=== PATIENT | female | born 1940 | race Two or more races ===

== ENCOUNTER 2019-06-19 08:08 | Inpatient (IN) | payer MEDICARE, MEDICAID ==
[2019-06-19] VITALS (9 sets, daily range): BP systolic 118–137; BP diastolic 65–76
[~2019-06-19] VITALS: Ht 160 cm; Wt 54.4 kg
[2019-06-19 08:40] LABS: BASOPHILS % (AUTO) 1.4 % (0.0-2.0); EOSINOPHILS % (AUTO) 2.1 % (0.0-3.0); HEMATOCRIT 27.7 % (37.0-47.0); HEMOGLOBIN 9.8 G/DL (12.0-16.0); LYMPHOCYTES % (AUTO) 18.8 % (20.0-45.0); MEAN CORPUSCULAR VOLUME 93 FL (80-99); MONOCYTES % (AUTO) 8.2 % (1.0-10.0); NEUTROPHILS % (AUTO) 69.6 % (45.0-75.0); PLATELET COUNT 153 K/UL (150-450); RED BLOOD COUNT 2.99 M/UL (4.20-5.40); RED CELL DISTRIBUTION WIDTH 13.2 % (11.6-14.8); WHITE BLOOD COUNT 8.5 K/UL (4.8-10.8)
[2019-06-19 08:49] LABS: INR 1.1 (0.9-1.1)
[2019-06-19 08:52] LABS: ANION GAP 15 mmol/L (5-15); BLOOD UREA NITROGEN 38 mg/dL (7-18); CALCIUM 9.7 MG/DL (8.5-10.1); CARBON DIOXIDE 22 MMOL/L (21-32); CHLORIDE 104 MMOL/L (98-107); POTASSIUM 4.8 MMOL/L (3.5-5.1); SODIUM 141 MMOL/L (136-145)
[2019-06-19 08:56] LABS: ALANINE AMINOTRANSFERASE 29 U/L (12-78); ALBUMIN/GLOBULIN RATIO 0.7 (1.0-2.7); ALKALINE PHOSPHATASE 102 U/L (46-116); ASPARTATE AMINO TRANSFERASE 41 U/L (15-37); CREATINE KINASE 72 U/L (26-308)
[2019-06-19] MEDS ORDERED: ATORVASTATIN CA40 MG ORAL (10:28)
[2019-06-19] MEDS ORDERED: FERROUS SULFAT325 MG ORAL (10:28)
[2019-06-19] MEDS ORDERED: ASPIR 8181 MG ORAL (10:28)
[2019-06-19] MEDS ORDERED: METFORMIN HCL1000 M1 ORAL (10:28)
[2019-06-19] MEDS ORDERED: ACETAMINOPHEN325 M1 ORAL (10:28)
[2019-06-19] MEDS ORDERED: NOVOLIN R100 UNIT/1 SUBQ (10:28)
[2019-06-19] MEDS ORDERED: MIDODRINE HCL10 MG ORAL (10:28)
[2019-06-19] MEDS ORDERED: FOLIC ACID1 MG ORAL (10:28)
[2019-06-19] MEDS ORDERED: CITRATE OF MAG296 ML PO (10:28)
[2019-06-19] MEDS ORDERED: SENNA8.6 M2 PO (10:28)
[2019-06-19] MEDS ORDERED: DOCUSATE SODIU100 MG ORAL (10:28)
[2019-06-19] MEDS ORDERED: MECLIZINE HCL12.5 MG ORAL (10:28)
[2019-06-19] MEDS ORDERED: LACTULOSE20 GM/301 ORAL (10:28)
[2019-06-19] MEDS ORDERED: TRAMADOL HCL50 MG ORAL (10:28)
[2019-06-19] MEDS ORDERED: PROTONIX40 MG ORAL (10:28)
[2019-06-19] MEDS ORDERED: VITAMIN D33000 UNI1 PO (10:28)
[2019-06-19] MEDS ORDERED: Pantoprazole Inj IVP ONE (10:45)
--- NOTE | 2019-06-19 11:40 | Diagnostic Imaging Report ---
Indication: Dyspnea Comparison: None A single view chest radiograph was obtained. Findings: No definite infiltrate or pulmonary vascular congestion identified accounting for low lung volumes. The heart is enlarged. The aorta is mildly enlarged consistent with atherosclerotic vascular disease. The bones are osteopenic. There are thoracic vertebral enthesophytes at multiple levels. Impression: No acute disease
--- NOTE | 2019-06-19 12:39 | Pre-Procedure Note/Attestation ---
Pre-Procedure Note/Attestation Complete Prior to Procedure Planned Procedure: not applicable Procedure Narrative: egd Indications for Procedure Pre-Operative Diagnosis: GIB Attestation I attest that I discussed the nature of the procedure; its benefits; risks and complications; and alternatives (and the risks and benefits of such alternatives ), prior to the procedure, with the patient (or the patient's legal loss prevention representative). I attest that, if there was a reasonable possibility of needing a blood transfusion, the patient (or the patient's legal loss prevention representative) was given the [facility] standardized written summary, pursuant to the Miguel Angel Eleonora Blood Safety Act ([place] Health and Safety Code # 1645, as amended). I attest that I re-evaluated the patient just prior to the surgery and that there has been no change in the patient's H&P, except as documented below: Jj Hermosillo MD Jun 19, 2019 12:39
[2019-06-19] MEDS ORDERED: Propofol 200mg/20ml IV ONE (13:00)
[2019-06-19] MEDS: Midodrine 10mg tab ORAL SCH ×2 (13:00→18:01)
[2019-06-19] MEDS ORDERED: Lidocaine 1% MPF 10mg/ml 5ml ONE (13:00)
--- NOTE | 2019-06-19 13:19 | Endoscopy Procedure Note ---
Endoscopy Procedure Note General Indication for Procedure: gib Procedures Performed: EGD Operative Findings/Diagnosis: esoph varices s/p banding Specimen: none Pt Tolerated Procedure Well: Yes Estimated Blood Loss: none Anesthesia Anesthesiologist: zi Anesthesia: MAC Inserted Devices Implant(s) used?: No GI Core Measures 50 yrs or older w/o bx or poly: Not Applicable 10yrs. F/U recommended: Not Applicable Jj Hermosillo MD Jun 19, 2019 13:19
--- NOTE | 2019-06-19 13:41 | Anethesia Preoperative Eval ---
Anesthesia Pre-op PMH/ROS General Date of Evaluation: Jun 19, 2019 Time of Evaluation: 12:50 Anesthesiologist: Naila Frausto CRNA ASA Score: ASA 3 Mallampati Score Class I : Soft palate, uvula, fauces, pillars visible Class II: Soft palate, uvula, fauces visible Class III: Soft palate, base of uvula visible Class IV: Only hard plate visible Mallampati Classification: Class II Surgeon: Bay Diagnosis: Vomiting blood Surgical Procedure: EGD, control of bleeding Family History: no anesthesia problems Allergies: Coded Allergies: No Known Allergies (Unverified , 06/19/19) Medications: see eMAR Patient NPO?: Yes NPO Date: Jun 19, 2019 NPO Time: 00:00 Past Medical History Cardiovascular: Reports: HTN; Denies: CAD, MD, valve dz, arrhythmia, other Pulmonary: Denies: asthma, COPD, VALERIANO, other Gastrointestinal/Genitourinary: Reports: GERD, other - liver cirrhosis, varices Neurologic/Psychiatric: Denies: dementia, CVA, depression/anxiety, TIA, other Endocrine: Reports: DM; Denies: hypothyroidism, steroids, other HEENT: Denies: cataract (L), cataract (R), glaucoma, [place] (L), [place] (R), other Hematology/Immune: Reports: anemia; Denies: DVT, bleeding disorder, other Musculoskeletal/Integumentary: Reports: other - osteoporosis; Denies: OA, RA, DJD, DDD, edema PMH Narrative: as noted above PSxH Narrative: See H & P Anesthesia Pre-op Phys. Exam Physician Exam Last Vital Signs Date Time Temp Pulse Resp B/P (MAP) Pulse Ox O2 Delivery O2 Flow Rate FiO2 06/19/19 12:10 104 18 118/76 99 Room Air 06/19/19 10:20 98.7 Constitutional: NAD Neurologic: other - alert & oriented Cardiovascular: RRR Respiratory: CTA Gastrointestinal: S/NT/ND Airway Exam Mallampati Score: Class II MO: full Neck: FROM TMD: > 3FB ROM: full Teeth: intact Dentures: no upper, no lower Anesthesia Pre-op A/P Labs Hematology Test 06/19/19 08:20 White Blood Count 8.5 K/UL (4.8-10.8) Red Blood Count 2.99 M/UL (4.20-5.40) L Hemoglobin 9.8 G/DL (12.0-16.0) L Hematocrit 27.7 % (37.0-47.0) L Mean Corpuscular Volume 93 FL (80-99) Mean Corpuscular Hemoglobin 32.7 PG (27.0-31.0) H Mean Corpuscular Hemoglobin Concent 35.3 G/DL (32.0-36.0) Red Cell Distribution Width 13.2 % (11.6-14.8) Platelet Count 153 K/UL (150-450) Mean Platelet Volume 6.1 FL (6.5-10.1) L Neutrophils (%) (Auto) 69.6 % (45.0-75.0) Lymphocytes (%) (Auto) 18.8 % (20.0-45.0) L Monocytes (%) (Auto) 8.2 % (1.0-10.0) Eosinophils (%) (Auto) 2.1 % (0.0-3.0) Basophils (%) (Auto) 1.4 % (0.0-2.0) Coagulation Test 06/19/19 08:20 Prothrombin Time 11.5 SEC (9.30-11.50) Prothromb Time International Ratio 1.1 (0.9-1.1) Activated Partial Thromboplast Time 27 SEC (23-33) Chemistry Test 06/19/19 08:20 Sodium Level 141 MMOL/L (136-145) Potassium Level 4.8 MMOL/L (3.5-5.1) Chloride Level 104 MMOL/L (98-107) Carbon Dioxide Level 22 MMOL/L (21-32) Anion Gap 15 mmol/L (5-15) Blood Urea Nitrogen 38 mg/dL (7-18) H Creatinine 1.0 MG/DL (0.55-1.30) Estimat Glomerular Filtration Rate 53.3 mL/min (>60) Glucose Level 157 MG/DL (74-106) H Calcium Level 9.7 MG/DL (8.5-10.1) Total Bilirubin 1.0 MG/DL (0.2-1.0) Aspartate Amino Transf (AST/SGOT) 41 U/L (15-37) H Alanine Aminotransferase (ALT/SGPT) 29 U/L (12-78) Alkaline Phosphatase 102 U/L (46-116) Total Creatine Kinase 72 U/L (26-308) Troponin I 0.000 ng/mL (0.000-0.056) Total Protein 7.4 G/DL (6.4-8.2) Albumin 3.0 G/DL (3.4-5.0) L Globulin 4.4 g/dL Albumin/Globulin Ratio 0.7 (1.0-2.7) L Studies Pre-op Studies: EKG - enlarged heart, atherosclerotic valvular disease Risk Assessment & Plan Assessment: ASA 3E, ok to proceed Plan: MAC Status Change Before Surgery: No Pre-Antibiotics Given Within 1 Hr of Incision: No Naila Frausto CRNA Jun 19, 2019 13:41
--- NOTE | 2019-06-19 13:42 | Immediate Post-Op Evaluation ---
Immediate Post-Op Evalulation Immediate Post-Op Evalulation Procedure: EGD with banding Date of Evaluation: Jun 19, 2019 Time of Evaluation: 13:35 IV Fluids: 0.9 NS 250 ml Blood Pressure Systolic: 135 Blood Pressure Diastolic: 68 Pulse Rate: 109 Respiratory Rate: 20 O2 Sat by Pulse Oximetry: 99 Temperature (Fahrenheit): 97.7 Pain Score (1-10): 0 Nausea: No Vomiting: No Complications none Patient Status: awake, patent Hydration Status: adequate Given Within 1 Hr of Incision: Naila Grewal CRNA Jun 19, 2019 13:42
--- NOTE | 2019-06-19 13:52 | 48 Hour Post Anesthesia Eval ---
Post Anesthesia Evaluation Procedure: EGD with banding Date of Evaluation: Jun 19, 2019 Time of Evaluation: 13:51 Blood Pressure Systolic: 142 0: 69 Pulse Rate: 90 Respiratory Rate: 20 Temperature (Fahrenheit): 97.7 O2 Sat by Pulse Oximetry: 100 Nausea: No Vomiting: No Pain Intensity: 0 Hydration Status: adequate Cardiopulmonary Status: stable Mental Status/LOC: patient returned to baseline Follow-up Care/Observations: per hospitalist Post-Anesthesia Complications: none Follow-up care needed: N/A Naila Frausto CRNA Jun 19, 2019 13:52
--- NOTE | 2019-06-19 14:00 | Emergency Room Report ---
History of Present Illness General Chief Complaint: Gastrointestinal Bleed Source: Patient, Medical Record, EMS Present Illness HPI Patient presents by EMS with reports of vomiting blood Patient himself has some underlying dementia It was reported the patient had vomiting episode on several occasions prior to arrival patient also did complain of epigastric pain with some radiation towards her back Denies any fevers denies any diarrhea denies any lower abdominal pain patient did have trace of bright blood on her outfit COVID-19 risk:Travel to affect: No Allergies: Coded Allergies: No Known Allergies (Unverified , 06/19/19) Patient History Past Medical History: see triage record Reviewed Nursing Documentation: PMH: Agreed; PSxH: Agreed Nursing Documentation-PMH Past Medical History: No History, Except For Hx Cardiac Problems: Yes - Anemia, cardiomyopathy Hx Diabetes: Yes Hx Gastrointestinal Problems: Yes - GERD with esophagitis Hx Cerebrovascular Accident: Yes - TIA Review of Systems All Other Systems: limited - Other than the ones mentioned in the history of present illness all others are reviewed however they do stay limited due to the patient's mental status Physical Exam Vital Signs Date Time Temp Pulse Resp B/P (MAP) Pulse Ox O2 Delivery O2 Flow Rate FiO2 06/19/19 08:07 99.0 115 17 126/70 (88) 99 Room Air 06/19/19 13:25 3 Sp02 EP Interpretation: reviewed, normal General Appearance: no apparent distress Head: normocephalic, atraumatic Eyes: bilateral eye PERRL, bilateral eye EOMI ENT: hearing grossly normal, EOM grossly intact Neck: supple Respiratory: lungs clear, no rhonchi Gastrointestinal: non tender, soft Musculoskeletal: normal inspection Neurologic: alert - With some underlying confusion Psychiatric: mood/affect normal Skin: no rash, palpation normal Lymphatic: no adenopathy Medical Decision Making Diagnostic Impression: Primary Impression: GI bleed ER Course Multiple differentials including but not limited to upper GI bleed, injury and bleeding from of her airway, oropharynx On clinical exam patient does not show any signs of active hemorrhage Extensive work-up was initiated patient is mildly anemic At this time will require further inpatient care GI specialty is consulted Labs Test 06/19/19 08:20 White Blood Count 8.5 K/UL (4.8-10.8) Red Blood Count 2.99 M/UL (4.20-5.40) Hemoglobin 9.8 G/DL (12.0-16.0) Hematocrit 27.7 % (37.0-47.0) Mean Corpuscular Volume 93 FL (80-99) Mean Corpuscular Hemoglobin 32.7 PG (27.0-31.0) Mean Corpuscular Hemoglobin Concent 35.3 G/DL (32.0-36.0) Red Cell Distribution Width 13.2 % (11.6-14.8) Platelet Count 153 K/UL (150-450) Mean Platelet Volume 6.1 FL (6.5-10.1) Neutrophils (%) (Auto) 69.6 % (45.0-75.0) Lymphocytes (%) (Auto) 18.8 % (20.0-45.0) Monocytes (%) (Auto) 8.2 % (1.0-10.0) Eosinophils (%) (Auto) 2.1 % (0.0-3.0) Basophils (%) (Auto) 1.4 % (0.0-2.0) Prothrombin Time 11.5 SEC (9.30-11.50) Prothromb Time International Ratio 1.1 (0.9-1.1) Activated Partial Thromboplast Time 27 SEC (23-33) Sodium Level 141 MMOL/L (136-145) Potassium Level 4.8 MMOL/L (3.5-5.1) Chloride Level 104 MMOL/L (98-107) Carbon Dioxide Level 22 MMOL/L (21-32) Anion Gap 15 mmol/L (5-15) Blood Urea Nitrogen 38 mg/dL (7-18) Creatinine 1.0 MG/DL (0.55-1.30) Estimat Glomerular Filtration Rate 53.3 mL/min (>60) Glucose Level 157 MG/DL (74-106) Calcium Level 9.7 MG/DL (8.5-10.1) Total Bilirubin 1.0 MG/DL (0.2-1.0) Aspartate Amino Transf (AST/SGOT) 41 U/L (15-37) Alanine Aminotransferase (ALT/SGPT) 29 U/L (12-78) Alkaline Phosphatase 102 U/L (46-116) Total Creatine Kinase 72 U/L (26-308) Troponin I 0.000 ng/mL (0.000-0.056) Total Protein 7.4 G/DL (6.4-8.2) Albumin 3.0 G/DL (3.4-5.0) Globulin 4.4 g/dL Albumin/Globulin Ratio 0.7 (1.0-2.7) Rhythm Strip Diag. Results EP Interpretation: yes Rate: 77 Rhythm: NSR, no PVC's, no ectopy Chest X-Ray Diagnostic Results Chest X-Ray Diagnostic Results : Chest X-Ray Ordered: Yes # of Views/Limited/Complete: 1 View Indication: Chest Pain EP Interpretation: Yes Interpretation: no consolidation, no effusion, no pneumothorax Impression: No acute disease Electronically Signed by: Nancy Viveros DO Last Vital Signs Date Time Temp Pulse Resp B/P (MAP) Pulse Ox O2 Delivery O2 Flow Rate FiO2 06/19/19 13:52 90 20 100 06/19/19 13:35 133/65 Nasal Cannula 3 06/19/19 13:25 97.7 Status: improved Disposition: ADMITTED INPATIENT Condition: Serious Referrals: NON PHYSICIAN (PCP) Nancy Viveros DO Jun 19, 2019 14:00
[2019-06-19] MEDS: NovoLOG Insulin Flexpen SUBQ SCH ×3 (16:19→21:00)
--- NOTE | 2019-06-19 16:45 | Procedure Note ---
DATE OF PROCEDURE: 06/19/2019 SURGEON: Jj Hermosillo M.D. PROCEDURE: Upper endoscopy with banding of esophageal varices. ANESTHESIA: Per nurse Naila andersen. INSTRUMENT: Olympus adult flexible upper endoscope. INDICATION: Upper GI bleeding. REASON FOR PROCEDURE: The procedure, risks, benefits, and possible consequences, including hemorrhage, aspiration, perforation and infection, and alternative treatments, were explained to the patient/legal guardian by Dr. Jj Hermosillo and the patient/legal guardian understood and accepted these risks. PROCEDURE IN DETAIL: After informed consent was obtained and the patient was adequately sedated, Olympus upper endoscope was advanced from mouth to the second portion of the duodenum and retroflexion was performed in the stomach. The patient had three columns of grade 4 distal esophageal varices. One of them had nipple on it, most probably the source of bleeding. In the stomach, there was mild portal hypertensive gastropathy with some oozing of blood in the proximal body of the stomach from that. No evidence of any gastric varices. At this time, the banding device was placed. Total of three bands were placed in the distal esophagus. There was minimum bleeding, which stopped after the band was placed. The patient tolerated the procedure very well without any complications. SUMMARY OF FINDINGS: 1. Esophageal varices, status post banding x3. 2. Portal hypertensive gastropathy. PLAN: 1. NPO except for medications. 2. IV Protonix, IV octreotide, ceftriaxone. 3. Abdominal ultrasound. 4. Repeat labs for tomorrow. 5. Start diet tomorrow if the patient is stable and advance as tolerated. Jj Hermosillo M.D. DR: BARRETT JOB#: [id number] CC:
[2019-06-19] MEDS: Octreotide Acetate 500 MCG in Sodium Chloride 499 ML IV SCH (18:00)
--- NOTE | 2019-06-19 19:08 | Diagnostic Imaging Report ---
EXAM: US Abdomen Complete CLINICAL HISTORY: ABD PAIN TECHNIQUE: Real-time ultrasound of the abdomen with image documentation. COMPARISON: No relevant prior studies available. FINDINGS: Limitations: Evaluation is limited secondary to the patient's body habitus. Liver: Some nodularity is suspected of the liver surface. Cirrhosis should be considered. Some increased echogenicity is suspected of the liver consistent with an infiltrative process such as cirrhosis or fatty infiltration. No intrahepatic bile duct dilation. Gallbladder: Multiple gallstones are seen in the gallbladder. There is some gallbladder wall thickening with pericholecystic fluid which are nonspecific findings. Acute cholecystitis cannot be excluded. Correlation with clinical findings is recommended. The gallbladder wall measures approximately 10 mm. Common bile duct: The common biliary duct measures 3 mm. No stones. No dilation. Pancreas: The visualized portions of the pancreas are unremarkable. Kidneys: Question of some increased echogenicity of the kidneys which suggests medical renal disease. The right kidney measures 9.1 cm in length. The left kidney measures 9.5 cm in length. Spleen: The visualized portions of the spleen are unremarkable. Aorta: The visualized portions of the aorta are unremarkable. Inferior vena cava: The visualized portions of the inferior vena cava are unremarkable. Free fluid: Ascites is noted which appears most prominent in the right lower quadrant. IMPRESSION: 1. Some nodularity is suspected of the liver surface. Cirrhosis should be considered. 2. Some increased echogenicity is suspected of the liver consistent with an infiltrative process such as cirrhosis or fatty infiltration. 3. Multiple gallstones are seen in the gallbladder. There is some gallbladder wall thickening with pericholecystic fluid which are nonspecific findings. Acute cholecystitis cannot be excluded. Correlation with clinical findings is recommended. 4. Question of some increased echogenicity of the kidneys which suggests medical renal disease. 5. Ascites is noted which appears most prominent in the right lower quadrant.
[2019-06-20] VITALS (7 sets, daily range): BP systolic 112–137; BP diastolic 60–81
[2019-06-20] MEDS: Octreotide Acetate 500 MCG in Sodium Chloride 499 ML IV SCH ×4 (06:18→23:07)
[2019-06-20] MEDS: NovoLOG Insulin Flexpen SUBQ SCH ×4 (06:26→21:52)
[2019-06-20 08:00] LABS: INR 1.1 (0.9-1.1)
[2019-06-20 08:04] LABS: EOSINOPHILS % (AUTO) 2.9 % (0.0-3.0); HEMATOCRIT 23.1 % (37.0-47.0); LYMPHOCYTES % (AUTO) 22.2 % (20.0-45.0); MEAN CORPUSCULAR VOLUME 94 FL (80-99); MONOCYTES % (AUTO) 9.2 % (1.0-10.0); NEUTROPHILS % (AUTO) 64.8 % (45.0-75.0); PLATELET COUNT 109 K/UL (150-450); RED BLOOD COUNT 2.47 M/UL (4.20-5.40); RED CELL DISTRIBUTION WIDTH 13.5 % (11.6-14.8); WHITE BLOOD COUNT 4.4 K/UL (4.8-10.8)
[2019-06-20 08:34] LABS: AMMONIA 149 umol/L (11-32)
[2019-06-20 08:53] LABS: ALANINE AMINOTRANSFERASE 25 U/L (12-78); ALBUMIN 2.7 G/DL (3.4-5.0); ALBUMIN/GLOBULIN RATIO 0.6 (1.0-2.7); ALKALINE PHOSPHATASE 78 U/L (46-116); ANION GAP 8 mmol/L (5-15); ASPARTATE AMINO TRANSFERASE 34 U/L (15-37); BILIRUBIN,TOTAL 0.9 MG/DL (0.2-1.0); BLOOD UREA NITROGEN 43 mg/dL (7-18); CALCIUM 9.1 MG/DL (8.5-10.1); CARBON DIOXIDE 27 MMOL/L (21-32); CHLORIDE 108 MMOL/L (98-107); POTASSIUM 4.8 MMOL/L (3.5-5.1); SODIUM 143 MMOL/L (136-145)
[2019-06-20] MEDS: Midodrine 10mg tab ORAL SCH ×4 (09:00→19:41)
[2019-06-20] MEDS: Aspirin Baby 81mg ORAL SCH ×2 (09:00→09:58)
[2019-06-20] MEDS ORDERED: D5 1/2NS 1,000 ML IV SCH ×2 (12:30→13:15)
[2019-06-20] MEDS ORDERED: Lactulose 20gm/30ml UDC NG SCH (13:00)
[2019-06-20] MEDS ORDERED: Lactulose 200 GM in NS Irrig 1000ml 700 ML RECTAL SCH (14:00)
--- NOTE | 2019-06-20 14:00 | History and Physical Report ---
DATE OF ADMISSION: 06/19/2019 REASON FOR ADMISSION: GI bleed. HISTORY OF PRESENT ILLNESS: The patient is an 78-year-old female, who presents for further evaluation and care of vomiting blood. Gastroenterology was consulted for GI bleed. Dr. Hermosillo saw the patient. On EGD, the patient had esophageal varices, status post now banding of three of the varices along with portal hypertensive gastropathy. The patient was transferred to telemetry, was mildly awake, but confused and now with an elevated lactulose level. ALLERGIES: No known drug allergies. PAST MEDICAL HISTORY: 1. Alcohol dependency. 2. Anemia. 3. Cardiomyopathy. 4. GERD. 5. Gastritis. 6. Diabetes mellitus. 7. CVA. FAMILY HISTORY: Positive for hypertension and diabetes. PAST SURGICAL HISTORY: Noncontributory. REVIEW OF SYSTEMS: Cannot be obtained. The patient confused and disoriented. LABORATORY DATA: Laboratories dated June 20, 2019, white cell count 4.4, hemoglobin 8, and platelet count 109. Sodium 143, potassium 4.8, creatinine 1. PHYSICAL EXAMINATION: VITAL SIGNS: Blood pressure 129/62, respiratory rate 18, pulse 63, temperature 97.0, and 98% oxygen saturation on room air. GENERAL: The patient is somnolent, but arousable. HEENT: Extraocular muscles intact. No lymphadenopathy CARDIOVASCULAR: S1, S2. No rubs or gallops. PULMONARY: Clear to auscultation bilaterally. No rales, rhonchi or wheezes. ABDOMEN: Nondistended and nontender. EXTREMITIES: No edema. ASSESSMENT AND PLAN: 1. GI bleed due to esophageal varices, status post banding x3. We will defer management to Gastroenterology. 2. Acute encephalopathy due to elevated lactulose level. NG tube has been ordered and we will initiate lactulose therapy. Defer further management to Gastroenterology. 3. Anemia secondary to GI bleed. Blood transfusion if hemoglobin less than 7. 4. Diabetes mellitus. We will continue Accu-Cheks and as the patient is NPO, we will start D5 1/2 normal saline. 5. DVT prophylaxis with SCD. Juwan Angelo MD DR: MANJU/LOYDA Murcia: 06/20/2019 12:11 JOB#: [id number] CC:
[2019-06-20] MEDS: Lactulose 200 GM in NS Irrig 1000ml 700 ML RECTAL SCH ×2 (14:20→21:46)
[2019-06-20] MEDS: cefTRIAXone 1 GM in NS 55 ML IVPB SCH (14:22)
[2019-06-20] MEDS ORDERED: cefTRIAXone 1 GM in NS 55 ML IVPB ONE (15:00)
[2019-06-20] MEDS ORDERED: Atorvastatin 20mg tab ORAL SCH (21:00)
[2019-06-20] MEDS: D5 1/2NS 1,000 ML IV SCH (21:46)
[2019-06-21] VITALS (7 sets, daily range): BP systolic 93–145; BP diastolic 47–100
[2019-06-21] MEDS: Lactulose 200 GM in NS Irrig 1000ml 700 ML RECTAL SCH ×3 (05:57→22:00)
[2019-06-21] MEDS: NovoLOG Insulin Flexpen SUBQ SCH ×4 (05:59→20:47)
[2019-06-21 06:33] LABS: BASOPHILS % (AUTO) 1.4 % (0.0-2.0); EOSINOPHILS % (AUTO) 3.8 % (0.0-3.0); HEMATOCRIT 23.8 % (37.0-47.0); HEMOGLOBIN 8.2 G/DL (12.0-16.0); LYMPHOCYTES % (AUTO) 15.5 % (20.0-45.0); MEAN CORPUSCULAR VOLUME 93 FL (80-99); MONOCYTES % (AUTO) 11.4 % (1.0-10.0); NEUTROPHILS % (AUTO) 67.9 % (45.0-75.0); PLATELET COUNT 112 K/UL (150-450); RED BLOOD COUNT 2.56 M/UL (4.20-5.40); RED CELL DISTRIBUTION WIDTH 13.2 % (11.6-14.8)
[2019-06-21 06:43] LABS: ANION GAP 8 mmol/L (5-15); BLOOD UREA NITROGEN 32 mg/dL (7-18); CALCIUM 8.8 MG/DL (8.5-10.1); CARBON DIOXIDE 27 MMOL/L (21-32); CHLORIDE 110 MMOL/L (98-107); CREATININE 0.9 MG/DL (0.55-1.30); POTASSIUM 3.8 MMOL/L (3.5-5.1); SODIUM 145 MMOL/L (136-145)
[2019-06-21] MEDS: Midodrine 10mg tab ORAL SCH ×3 (09:00→17:40)
[2019-06-21] MEDS ORDERED: Aspirin Baby 81mg ORAL SCH (09:00)
[2019-06-21] MEDS: Octreotide Acetate 500 MCG in Sodium Chloride 499 ML IV SCH ×2 (09:29→19:30)
[2019-06-21] MEDS: D5 1/2NS 1,000 ML IV SCH ×2 (11:18→16:45)
--- NOTE | 2019-06-21 12:26 | Nephrology Progress Note ---
Assessment/Plan Assessment/Plan: A/P 1) GI Bleed- esophageal varieces - s/p banding - blx Tx if Hgb <7 2) Encephalopathy- duee to high ammonia levels - lactulose enemas 3) Hypotension- stable on midrodrine 4) DM- npo, ISS and accuchecks with D51/2 NS Subjective Date patient seen: Jun 21, 2019 Time patient seen: 12:22 ROS Limited/Unobtainable: Yes Allergies: Coded Allergies: No Known Allergies (Unverified , 06/19/19) Subjective Patient little more awake and alert this am Objective Last 24 Hour Vital Signs Date Time Temp Pulse Resp B/P (MAP) Pulse Ox O2 Delivery O2 Flow Rate FiO2 06/21/19 08:00 67 06/21/19 08:00 97.7 91 20 93/47 (62) 100 06/21/19 08:00 Nasal Cannula 2.0 06/21/19 04:00 57 06/21/19 04:00 Nasal Cannula 2.0 06/21/19 04:00 96.8 63 20 104/57 (73) 100 06/21/19 00:00 96.8 76 20 126/66 (86) 98 06/21/19 00:00 Nasal Cannula 2.0 06/21/19 00:00 83 06/20/19 20:00 Nasal Cannula 2.0 06/20/19 20:00 97.3 87 20 137/81 (99) 99 06/20/19 20:00 83 06/20/19 16:00 76 06/20/19 16:00 97.0 70 18 133/61 (85) 99 06/20/19 16:00 Nasal Cannula 2.0 06/20/19 13:20 96.8 75 18 129/60 (83) 97 Intake and Output 06/20/19 06/21/19 19:00 07:00 Output Total 700 ml 500 ml Balance -700 ml -500 ml Output Urine Total 700 ml 500 ml # Bowel Movements 6 5 Laboratory Tests 06/21/19 06:00: White Blood Count 5.0, Red Blood Count 2.56L, Hemoglobin 8.2L, Hematocrit 23.8L , Mean Corpuscular Volume 93, Mean Corpuscular Hemoglobin 31.9H, Mean Corpuscular Hemoglobin Concent 34.2, Red Cell Distribution Width 13.2, Platelet Count 112L, Mean Platelet Volume 5.3L, Neutrophils (%) (Auto) 67.9, Lymphocytes (%) (Auto) 15.5L, Monocytes (%) (Auto) 11.4H, Eosinophils (%) (Auto) 3.8H, Basophils (%) (Auto) 1.4, Sodium Level 145, Potassium Level 3.8, Chloride Level 110H, Carbon Dioxide Level 27, Anion Gap 8, Blood Urea Nitrogen 32H, Creatinine 0.9, Estimat Glomerular Filtration Rate > 60, Glucose Level 169H, Calcium Level 8.8 Height (Feet): 5 Height (Inches): 3.00 Weight (Pounds): 120 General Appearance: no apparent distress, confused EENT: normal ENT inspection Neck: normal alignment, supple Cardiovascular: normal rate, regular rhythm Respiratory/Chest: lungs clear, normal breath sounds Abdomen: non tender, soft Edema: no edema noted Arm (L), no edema noted Arm (R), no edema noted Leg (L), no edema noted Leg (R), no edema noted Pedal (L), no edema noted Pedal (R), no edema noted Generalized Juwan Angelo MD Jun 21, 2019 12:26
[2019-06-21] MEDS ORDERED: D5NS 1000ml IV ONE (13:56)
[2019-06-21] MEDS ORDERED: Tubing IV Secondary IV ONE (13:59)
[2019-06-21] MEDS: cefTRIAXone 1 GM in NS 55 ML IVPB SCH (15:13)
[2019-06-21] MEDS: Atorvastatin 20mg tab ORAL SCH (20:46)
[2019-06-21] MEDS ORDERED: Lactulose 200 GM in NS Irrig 1000ml 700 ML RECTAL SCH (22:00)
[2019-06-22] VITALS: BP 134/72
[2019-06-22 04:00] VITALS: BP 131/62
[2019-06-22] MEDS: Octreotide Acetate 500 MCG in Sodium Chloride 499 ML IV SCH (05:28)
[2019-06-22] MEDS: NovoLOG Insulin Flexpen SUBQ SCH ×4 (05:31→21:00)
[2019-06-22] MEDS: D5 1/2NS 1,000 ML IV SCH ×2 (05:31→18:09)
[2019-06-22] MEDS: Lactulose 200 GM in NS Irrig 1000ml 700 ML RECTAL SCH ×2 (05:32→14:00)
[2019-06-22 06:40] LABS: HEMATOCRIT 22.8 % (37.0-47.0); HEMOGLOBIN 7.8 G/DL (12.0-16.0); MEAN CORPUSCULAR VOLUME 93 FL (80-99); PLATELET COUNT 125 K/UL (150-450); RED BLOOD COUNT 2.44 M/UL (4.20-5.40); RED CELL DISTRIBUTION WIDTH 13.3 % (11.6-14.8); WHITE BLOOD COUNT 4.9 K/UL (4.8-10.8)
[2019-06-22 07:06] LABS: AMMONIA 39 umol/L (11-32)
[2019-06-22 07:20] LABS: ANION GAP 13 mmol/L (5-15); BLOOD UREA NITROGEN 21 mg/dL (7-18); CALCIUM 8.3 MG/DL (8.5-10.1); CARBON DIOXIDE 22 MMOL/L (21-32); CHLORIDE 110 MMOL/L (98-107); CREATININE 0.9 MG/DL (0.55-1.30); POTASSIUM 3.1 MMOL/L (3.5-5.1); SODIUM 145 MMOL/L (136-145)
[2019-06-22 08:00] VITALS: BP 125/68
[2019-06-22] MEDS: Aspirin Baby 81mg ORAL SCH (09:00)
[2019-06-22] MEDS: Midodrine 10mg tab ORAL SCH ×3 (09:00→18:07)
--- NOTE | 2019-06-22 10:32 | General Progress Note ---
Assessment/Plan Assessment/Plan: cirrhosis esoph varices gib encephalopathy hepatic gallstones s/p EGd lactulose add xifaxan swallow eval decrease octreotiode and possible dc tomorrow Subjective ROS Limited/Unobtainable: Yes Allergies: Coded Allergies: No Known Allergies (Unverified , 06/19/19) Objective Last 24 Hour Vital Signs Date Time Temp Pulse Resp B/P (MAP) Pulse Ox O2 Delivery O2 Flow Rate FiO2 06/22/19 04:04 Nasal Cannula 2.0 06/22/19 04:00 75 06/22/19 04:00 97.9 74 21 131/62 (85) 97 06/22/19 00:00 97.7 72 23 134/72 (92) 97 06/22/19 00:00 72 06/21/19 20:00 97.7 82 22 123/70 (87) 87 06/21/19 17:31 97.7 85 20 145/60 (88) 95 06/21/19 16:00 85 06/21/19 16:00 Nasal Cannula 2.0 06/21/19 16:00 98.0 72 20 134/100 (111) 100 06/21/19 12:00 88 06/21/19 12:00 Nasal Cannula 2.0 06/21/19 12:00 98.1 85 20 145/59 (87) 100 Intake and Output 06/21/19 06/22/19 19:00 07:00 Intake Total 1000 ml Balance 1000 ml IV Total 1000 ml # Bowel Movements 3 3 Laboratory Tests 06/22/19 06:22: White Blood Count 4.9, Red Blood Count 2.44L, Hemoglobin 7.8L, Hematocrit 22.8L , Mean Corpuscular Volume 93, Mean Corpuscular Hemoglobin 32.2H, Mean Corpuscular Hemoglobin Concent 34.4, Red Cell Distribution Width 13.3, Platelet Count 125L, Mean Platelet Volume 5.7L, Neutrophils (%) (Auto) , Lymphocytes (%) (Auto) , Monocytes (%) (Auto) , Eosinophils (%) (Auto) , Basophils (%) (Auto) , Differential Total Cells Counted 100, Neutrophils % (Manual) 70, Lymphocytes % ( Manual) 16L, Monocytes % (Manual) 11H, Eosinophils % (Manual) 3, Basophils % ( Manual) 0, Band Neutrophils 0, Platelet Estimate DecreasedL, Platelet Morphology Normal, Clumped Platelets , Hypochromasia 1+, Sodium Level 145, Potassium Level 3.1L, Chloride Level 110H, Carbon Dioxide Level 22, Anion Gap 13 , Blood Urea Nitrogen 21H, Creatinine 0.9, Estimat Glomerular Filtration Rate > 60, Glucose Level 146H, Calcium Level 8.3L, Ammonia 39H Height (Feet): 5 Height (Inches): 3.00 Weight (Pounds): 120 General Appearance: lethargic EENT: normal ENT inspection Neck: supple Cardiovascular: normal rate Respiratory/Chest: decreased breath sounds Abdomen: normal bowel sounds, non tender, soft Extremities: non-tender Jj Hermosillo MD Jun 22, 2019 10:32
--- NOTE | 2019-06-22 11:46 | Pulmonology Progress Note ---
Assessment/Plan Assessment/Plan ASSESSMENT AND PLAN: 1. GI bleed due to esophageal varices, status post banding x3. I will defer management to Gastroenterology. 2. Acute encephalopathy due to elevated lactulose level. Continue lactulose therapy. Defer further management to Gastroenterology. 3. Anemia secondary to GI bleed. Blood transfusion if hemoglobin less than 7. 4. Diabetes mellitus. I will continue Accu-Cheks and as the patient is NPO, I will start D5 1/2 normal saline. 5. DVT prophylaxis with SCD. Jonny Mcgregor MD Subjective Interval Events: S/p EGD Constitutional: Reports: no symptoms HEENT: Repors: no symptoms Respiratory: Reports: no symptoms Cardiovascular: Reports: no symptoms Allergies: Coded Allergies: No Known Allergies (Unverified , 06/19/19) Objective Last 24 Hour Vital Signs Date Time Temp Pulse Resp B/P (MAP) Pulse Ox O2 Delivery O2 Flow Rate FiO2 06/22/19 04:04 Nasal Cannula 2.0 06/22/19 04:00 75 06/22/19 04:00 97.9 74 21 131/62 (85) 97 06/22/19 00:00 97.7 72 23 134/72 (92) 97 06/22/19 00:00 72 06/21/19 20:00 97.7 82 22 123/70 (87) 87 06/21/19 17:31 97.7 85 20 145/60 (88) 95 06/21/19 16:00 85 06/21/19 16:00 Nasal Cannula 2.0 06/21/19 16:00 98.0 72 20 134/100 (111) 100 06/21/19 12:00 88 06/21/19 12:00 Nasal Cannula 2.0 06/21/19 12:00 98.1 85 20 145/59 (87) 100 Intake and Output 06/21/19 06/22/19 19:00 07:00 Intake Total 1000 ml Balance 1000 ml IV Total 1000 ml # Bowel Movements 3 3 General Appearance: no acute distress HEENT: normocephalic Respiratory/Chest: chest wall non-tender, lungs clear Cardiovascular: normal peripheral pulses Abdomen: normal bowel sounds Laboratory Tests 06/22/19 06:22: White Blood Count 4.9, Red Blood Count 2.44L, Hemoglobin 7.8L, Hematocrit 22.8L , Mean Corpuscular Volume 93, Mean Corpuscular Hemoglobin 32.2H, Mean Corpuscular Hemoglobin Concent 34.4, Red Cell Distribution Width 13.3, Platelet Count 125L, Mean Platelet Volume 5.7L, Neutrophils (%) (Auto) , Lymphocytes (%) (Auto) , Monocytes (%) (Auto) , Eosinophils (%) (Auto) , Basophils (%) (Auto) , Differential Total Cells Counted 100, Neutrophils % (Manual) 70, Lymphocytes % ( Manual) 16L, Monocytes % (Manual) 11H, Eosinophils % (Manual) 3, Basophils % ( Manual) 0, Band Neutrophils 0, Platelet Estimate DecreasedL, Platelet Morphology Normal, Clumped Platelets , Hypochromasia 1+, Sodium Level 145, Potassium Level 3.1L, Chloride Level 110H, Carbon Dioxide Level 22, Anion Gap 13 , Blood Urea Nitrogen 21H, Creatinine 0.9, Estimat Glomerular Filtration Rate > 60, Glucose Level 146H, Calcium Level 8.3L, Ammonia 39H Current Medications Medications (Trade) Dose Ordered Sig/Cecelia Route PRN Reason Start Time Stop Time Status Last Admin Dose Admin Aspirin (ASA) 81 mg DAILY ORAL 06/22/19 09:00 08/04/19 08:59 Atorvastatin Calcium (Lipitor) 40 mg QHS ORAL 06/21/19 21:00 07/19/19 20:59 Ceftriaxone Sodium 1 gm/ Sodium Chloride 55 ml @ 110 mls/hr Q24H IVPB 06/22/19 15:00 06/27/19 14:59 Dextrose (Dextrose 50%) 25 ml Q30M PRN IV Hypoglycemia 06/21/19 17:00 07/19/19 10:59 Dextrose (Dextrose 50%) 50 ml Q30M PRN IV Hypoglycemia 06/21/19 17:00 07/19/19 10:59 Dextrose/Sodium Chloride 1,000 ml @ 75 mls/hr [id number] IV 06/21/19 16:45 07/20/19 21:14 06/22/19 05:31 Famotidine (Pepcid I.v.) 40 mg DAILY IVP 06/22/19 09:00 07/21/19 10:59 06/22/19 09:51 Insulin Aspart (NovoLOG) BEFORE MEALS AND HS SUBQ 06/21/19 21:00 07/19/19 11:29 Lactulose 200 gm/ Sodium Chloride 1,000 ml @ 0 mls/hr Q8HR RECTAL 06/21/19 22:00 07/21/19 21:59 06/22/19 05:32 Metformin HCl (Glucophage) 850 mg TIAC ORAL 06/22/19 06:30 07/19/19 16:29 Midodrine (Pro-Amatine) 10 mg THREE TIMES A DAY ORAL 06/21/19 18:00 07/19/19 12:59 Octreotide Acetate 500 mcg/ Sodium Chloride 500 ml @ 25 mls/hr Q20H IV 06/22/19 19:30 07/19/19 19:29 Jonny Mcgregor MD Jun 22, 2019 11:46
[2019-06-22 12:00] VITALS: BP 137/70
[2019-06-22] MEDS: cefTRIAXone 1 GM in NS 55 ML IVPB SCH (15:00)
[2019-06-22 16:00] VITALS: BP 114/62
[2019-06-22] MEDS: Lactulose 20gm/30ml UDC ORAL SCH ×2 (18:07→22:13)
[2019-06-22] MEDS ORDERED: MAGNESIUM OXID400 M1 ORAL (18:40)
[2019-06-22] MEDS ORDERED: PRO-STAT 64 LI887 ML PO (18:40)
[2019-06-22] MEDS ORDERED: Octreotide Acetate 500 MCG in Sodium Chloride 499 ML IV SCH (19:30)
[2019-06-22 20:00] VITALS: BP 113/62
[2019-06-22] MEDS: Atorvastatin 20mg tab ORAL SCH (22:13)
[2019-06-23] VITALS: BP_SYST 110; BP_SYST 114; BP_DIAS 56; BP_DIAS 60
[2019-06-23 04:00] VITALS: BP 128/66
[2019-06-23] MEDS: NovoLOG Insulin Flexpen SUBQ SCH ×3 (05:55→16:30)
[2019-06-23 07:10] LABS: BASOPHILS % (AUTO) 1.1 % (0.0-2.0); EOSINOPHILS % (AUTO) 5.4 % (0.0-3.0); HEMATOCRIT 23.2 % (37.0-47.0); LYMPHOCYTES % (AUTO) 17.4 % (20.0-45.0); MEAN CORPUSCULAR VOLUME 94 FL (80-99); MONOCYTES % (AUTO) 10.7 % (1.0-10.0); NEUTROPHILS % (AUTO) 65.3 % (45.0-75.0); PLATELET COUNT 118 K/UL (150-450); RED BLOOD COUNT 2.48 M/UL (4.20-5.40); RED CELL DISTRIBUTION WIDTH 13.9 % (11.6-14.8); WHITE BLOOD COUNT 4.5 K/UL (4.8-10.8)
[2019-06-23 07:26] LABS: AMMONIA 14 umol/L (11-32)
[2019-06-23 07:29] LABS: ALANINE AMINOTRANSFERASE 23 U/L (12-78); ALBUMIN 2.5 G/DL (3.4-5.0); ALBUMIN/GLOBULIN RATIO 0.6 (1.0-2.7); ALKALINE PHOSPHATASE 71 U/L (46-116); ANION GAP 12 mmol/L (5-15); ASPARTATE AMINO TRANSFERASE 32 U/L (15-37); BLOOD UREA NITROGEN 17 mg/dL (7-18); CALCIUM 8.3 MG/DL (8.5-10.1); CARBON DIOXIDE 21 MMOL/L (21-32); CHLORIDE 110 MMOL/L (98-107); CREATININE 0.9 MG/DL (0.55-1.30); POTASSIUM 2.9 MMOL/L (3.5-5.1); SODIUM 143 MMOL/L (136-145)
[2019-06-23 08:00] VITALS: BP 112/62
--- NOTE | 2019-06-23 08:49 | Pulmonology Progress Note ---
Assessment/Plan Assessment/Plan ASSESSMENT AND PLAN: 1. GI bleed due to esophageal varices, status post banding x3. Will dc octreotide and dc home today 2. Acute encephalopathy due to elevated lactulose level. Continue lactulose therapy. 3. Anemia secondary to GI bleed. Hgb stable at 8 4. Diabetes mellitus. Advance diet Dc home Jonny Mcgregor MD Subjective Interval Events: None new Constitutional: Reports: no symptoms HEENT: Repors: no symptoms Respiratory: Reports: no symptoms Cardiovascular: Reports: no symptoms Gastrointestinal/Abdominal: Reports: no symptoms Allergies: Coded Allergies: No Known Allergies (Unverified , 06/19/19) Objective Last 24 Hour Vital Signs Date Time Temp Pulse Resp B/P (MAP) Pulse Ox O2 Delivery O2 Flow Rate FiO2 06/23/19 08:00 98.5 62 18 112/62 (79) 98 06/23/19 04:00 67 06/23/19 04:00 96.1 67 20 128/66 (86) 97 06/23/19 00:00 78 06/23/19 00:00 97.9 70 20 114/60 (78) 96 06/22/19 20:00 56 06/22/19 20:00 98.1 64 20 113/62 (79) 97 06/22/19 16:00 96.8 81 17 114/62 (79) 100 06/22/19 16:00 81 06/22/19 12:00 78 06/22/19 12:00 97.7 75 18 137/70 (92) 98 Intake and Output 06/22/19 06/23/19 19:00 07:00 Intake Total 64 ml 754 ml Balance 64 ml 754 ml IV Total 64 ml 754 ml # Voids 2 # Bowel Movements 1 General Appearance: no acute distress HEENT: normocephalic Respiratory/Chest: chest wall non-tender, lungs clear Cardiovascular: normal peripheral pulses Abdomen: normal bowel sounds Laboratory Tests 06/23/19 06:09: White Blood Count 4.5L, Red Blood Count 2.48L, Hemoglobin 8.0L, Hematocrit 23.2L , Mean Corpuscular Volume 94, Mean Corpuscular Hemoglobin 32.2H, Mean Corpuscular Hemoglobin Concent 34.4, Red Cell Distribution Width 13.9, Platelet Count 118L, Mean Platelet Volume 5.7L, Neutrophils (%) (Auto) 65.3, Lymphocytes (%) (Auto) 17.4L, Monocytes (%) (Auto) 10.7H, Eosinophils (%) (Auto) 5.4H, Basophils (%) (Auto) 1.1, Sodium Level 143, Potassium Level 2.9L, Chloride Level 110H, Carbon Dioxide Level 21, Anion Gap 12, Blood Urea Nitrogen 17, Creatinine 0.9, Estimat Glomerular Filtration Rate > 60, Glucose Level 139H, Calcium Level 8.3L, Total Bilirubin 1.0, Aspartate Amino Transf (AST/SGOT) 32, Alanine Aminotransferase (ALT/SGPT) 23, Alkaline Phosphatase 71, Ammonia 14, Total Protein 6.5, Albumin 2.5L, Globulin 4.0, Albumin/Globulin Ratio 0.6L Current Medications Medications (Trade) Dose Ordered Sig/Cecelia Route PRN Reason Start Time Stop Time Status Last Admin Dose Admin Aspirin (ASA) 81 mg DAILY ORAL 06/22/19 09:00 08/04/19 08:59 Atorvastatin Calcium (Lipitor) 40 mg QHS ORAL 06/21/19 21:00 07/19/19 20:59 06/22/19 22:13 Ceftriaxone Sodium 1 gm/ Sodium Chloride 55 ml @ 110 mls/hr Q24H IVPB 06/22/19 15:00 06/27/19 14:59 06/22/19 15:00 Dextrose (Dextrose 50%) 25 ml Q30M PRN IV Hypoglycemia 06/21/19 17:00 07/19/19 10:59 Dextrose (Dextrose 50%) 50 ml Q30M PRN IV Hypoglycemia 06/21/19 17:00 07/19/19 10:59 Dextrose/Sodium Chloride 1,000 ml @ 75 mls/hr [id number] IV 06/21/19 16:45 07/20/19 21:14 06/22/19 18:09 Famotidine (Pepcid I.v.) 40 mg DAILY IVP 06/22/19 09:00 07/21/19 10:59 06/22/19 09:51 Insulin Aspart (NovoLOG) BEFORE MEALS AND HS SUBQ 06/21/19 21:00 07/19/19 11:29 Lactulose (Cephulac) 30 gm FOUR TIMES A DAY ORAL 06/22/19 18:00 07/22/19 17:59 06/22/19 22:13 Metformin HCl (Glucophage) 850 mg TIAC ORAL 06/22/19 06:30 07/19/19 16:29 06/23/19 06:21 Midodrine (Pro-Amatine) 10 mg THREE TIMES A DAY ORAL 06/21/19 18:00 07/19/19 12:59 06/22/19 18:07 Octreotide Acetate 500 mcg/ Sodium Chloride 500 ml @ 25 mls/hr Q20H IV 06/22/19 19:30 07/19/19 19:29 06/23/19 00:51 Potassium Chloride 100 ml @ 100 mls/hr Q2H IVPB 06/23/19 08:15 06/23/19 13:14 Jonny Mcgregor MD Jun 23, 2019 08:49
[2019-06-23] MEDS: Lactulose 20gm/30ml UDC ORAL SCH ×3 (08:50→17:16)
[2019-06-23] MEDS: Midodrine 10mg tab ORAL SCH ×3 (08:50→17:16)
[2019-06-23] MEDS: Aspirin Baby 81mg ORAL SCH (08:51)
[2019-06-23] MEDS ORDERED: FOLIC ACID1 MG ORAL (08:54)
[2019-06-23] MEDS ORDERED: PROTONIX40 MG ORAL (08:54)
[2019-06-23] MEDS ORDERED: FERROUS SULFAT325 MG ORAL (08:54)
[2019-06-23] MEDS ORDERED: LACTULOSE20 GM/301 ORAL (08:54)
[2019-06-23] MEDS ORDERED: VITAMIN D33000 UNI1 PO (08:54)
[2019-06-23] MEDS ORDERED: METFORMIN HCL1000 M1 ORAL (08:54)
[2019-06-23] MEDS ORDERED: MIDODRINE HCL10 MG ORAL (08:54)
--- NOTE | 2019-06-23 08:58 | General Progress Note ---
Assessment/Plan Assessment/Plan: cirrhosis esoph varices gib encephalopathy hepatic gallstones s/p EGd lactulose dc octreotiode paracentesis for today replace k Subjective ROS Limited/Unobtainable: Yes Allergies: Coded Allergies: No Known Allergies (Unverified , 06/19/19) Objective Last 24 Hour Vital Signs Date Time Temp Pulse Resp B/P (MAP) Pulse Ox O2 Delivery O2 Flow Rate FiO2 06/23/19 08:00 98.5 62 18 112/62 (79) 98 06/23/19 04:00 67 06/23/19 04:00 96.1 67 20 128/66 (86) 97 06/23/19 00:00 78 06/23/19 00:00 97.9 70 20 114/60 (78) 96 06/22/19 20:00 56 06/22/19 20:00 98.1 64 20 113/62 (79) 97 06/22/19 16:00 96.8 81 17 114/62 (79) 100 06/22/19 16:00 81 06/22/19 12:00 78 06/22/19 12:00 97.7 75 18 137/70 (92) 98 Intake and Output 06/22/19 06/23/19 19:00 07:00 Intake Total 64 ml 754 ml Balance 64 ml 754 ml IV Total 64 ml 754 ml # Voids 2 # Bowel Movements 1 Laboratory Tests 06/23/19 06:09: White Blood Count 4.5L, Red Blood Count 2.48L, Hemoglobin 8.0L, Hematocrit 23.2L , Mean Corpuscular Volume 94, Mean Corpuscular Hemoglobin 32.2H, Mean Corpuscular Hemoglobin Concent 34.4, Red Cell Distribution Width 13.9, Platelet Count 118L, Mean Platelet Volume 5.7L, Neutrophils (%) (Auto) 65.3, Lymphocytes (%) (Auto) 17.4L, Monocytes (%) (Auto) 10.7H, Eosinophils (%) (Auto) 5.4H, Basophils (%) (Auto) 1.1, Sodium Level 143, Potassium Level 2.9L, Chloride Level 110H, Carbon Dioxide Level 21, Anion Gap 12, Blood Urea Nitrogen 17, Creatinine 0.9, Estimat Glomerular Filtration Rate > 60, Glucose Level 139H, Calcium Level 8.3L, Total Bilirubin 1.0, Aspartate Amino Transf (AST/SGOT) 32, Alanine Aminotransferase (ALT/SGPT) 23, Alkaline Phosphatase 71, Ammonia 14, Total Protein 6.5, Albumin 2.5L, Globulin 4.0, Albumin/Globulin Ratio 0.6L Height (Feet): 5 Height (Inches): 3.00 Weight (Pounds): 120 General Appearance: alert EENT: normal ENT inspection Neck: supple Cardiovascular: normal rate Respiratory/Chest: decreased breath sounds Abdomen: normal bowel sounds, non tender, soft Extremities: non-tender Jj Hermosillo MD Jun 23, 2019 08:58
[2019-06-23 12:00] VITALS: BP 118/69
--- NOTE | 2019-06-23 12:49 | Pre-Procedure Note/Attestation ---
Pre-Procedure Note/Attestation Complete Prior to Procedure Planned Procedure: not applicable Procedure Narrative: Paracentesis Attestation I attest that I discussed the nature of the procedure; its benefits; risks and complications; and alternatives (and the risks and benefits of such alternatives ), prior to the procedure, with the patient (or the patient's legal special service representative). I attest that, if there was a reasonable possibility of needing a blood transfusion, the patient (or the patient's legal special service representative) was given the [facility] standardized written summary, pursuant to the Miguel Angel Eleonora Blood Safety Act ([place] Health and Safety Code # 1645, as amended). I attest that I re-evaluated the patient just prior to the surgery and that there has been no change in the patient's H&P, except as documented below: Case discussed by phone with pt's. caregiver Jolene Yepez, and with pt. who appeared to understand. Miguel Gallardo MD Jun 23, 2019 12:49
--- NOTE | 2019-06-23 12:50 | Brief Operative Note ---
Immediate Post Operative Note Operative Note Pre-op Diagnosis: ascites Procedure: paracentesis Post-op Diagnosis: same as pre-op Surgeon: Lashanda Hernandez Anesthesia: local Specimen: yes - 50 ml fluid sent to lab Complications: none Fluids: none Implant(s) used?: No Miguel Hernandez MD Jun 23, 2019 12:50
--- NOTE | 2019-06-23 14:11 | Diagnostic Imaging Report ---
Indications: Ascites Technique: Ultrasound used to localize optimal puncture site. Sterile prepping and draping right lower quadrant. Local anesthesia with 1% lidocaine. Under real-time ultrasound guidance, puncture peritoneal space using paracentesis needle. Stylet removed. Catheter placed to vacuum bottle suction. Total 5.3 liters of fluid aspirated. Patient tolerated procedure well, without immediate complication. Findings: Followup sonography demonstrates complete resolution of peritoneal fluid. Impression: Successful ultrasound-guided paracentesis, yielding 5.3 liters of fluid
[2019-06-23] MEDS: cefTRIAXone 1 GM in NS 55 ML IVPB SCH (15:31)
[2019-06-23 16:00] VITALS: BP 96/60
--- NOTE | 2019-06-25 10:07 | Discharge Summary ---
Discharge Summary Discharge Summary _ DATE OF ADMISSION: 06/19/2019 DATE OF DISCHARGE: 06/23/2019 DISCHARGED BY: Dr. Mcgregor REASON FOR ADMISSION: 78 years old female with past medical history of anemia, cardiomyopathy, alcohol dependency, diabetes mellitus, CVA, gastritis, GERD, presented for evaluation due to vomiting blood. Upon evaluation patient was tachycardic. Laboratory work-up revealed no leukocytosis, hemoglobin 9.8, hematocrit 27.7, platelet count 153. Stable electrolytes. BUN 38, creatinine 1.0. Glucose 157. AST 41, ALT 29. Troponin negative EKG revealed sinus rhythm no acute ischemic changes Chest x-ray revealed no acute cardiopulmonary pathology. Patient received IV Protonix , started on IV fluids and admitted for inpatient management for upper GI bleeding. CONSULTANTS: GI specialist Dr Hermosillo vault cashier Dr Angelo [facility] COURSE: Patient admitted to telemetry floor. Patient was kept n.p.o. except medication. Patient started on octreotide drip and Protonix drip. Patient undergone upper endoscopy with banding of esophageal varices on 06/18. status post banding x3. Noted portal hypertensive gastropathy. Patient started on empiric antibiotic. Abdominal ultrasound demonstrated some nodularity on the liver surface. Possible cirrhosis. Increased echogenicity of the liver consistent with infiltrative process, such as cirrhosis or fatty infiltration. Multiple gallstones in the gallbladder. Gallbladder wall thickening with pericholecystic fluid. Increased echogenicity of the kidney , possibly suggesting medical renal disease. Ascites , more prominent in the right lower quadrant . Ammonia level 149. Patient started on lactulose. Encephalopathy was likely due to high ammonia level. Patient noted to be hypotensive and started on midodrine with close monitoring of hemodynamic status. While n.p.o. blood sugar was managed with sliding scale of insulin and IV provided to the dextrose. diet started the next day and was advanced as tolerated. Octreotide drip was discontinued. Patient undergone ultrasound-guided paracentesis wielding 5.3 L of fluid. Follow-up ultrasound demonstrated complete resolution of peritoneal fluid. Potassium was replaced prior to discharge. Renal parameters electrolytes were closely monitored BUN from 30 down to 17 creatinine remained stable. Hemoglobin and hematocrit were closely monitored with goal to keep hemoglobin above 7. Prior to discharge hemoglobin 8, hematocrit 23.2. Supportive care provided. Ammonia down to normal. Patient clinically stabilized and was ready for discharge to snf facility for continuation of care. FINAL DIAGNOSES: GI bleeding due to esophageal varices Status post EGD with banding of esophageal varices x3 Portal hypertensive gastropathy Cirrhosis Hepatic encephalopathy Anemia due to GI bleeding Ascites , status post paracentesis Gallstones Hypotension Diabetes mellitus DISCHARGE MEDICATIONS: See Medication Reconciliation list. DISCHARGE INSTRUCTIONS: Patient was discharged to the snf facility. Follow up with medical doctor at the facility. I have been assigned to dictate discharge summary for this account. I was not involved in the patient's management. Tisha Miranda NP Jun 25, 2019 10:07
== END 2019-06-23 17:30 | DRG 369 ==
LOC: EDBD 08:08 → EMR 08:55 → 2E 09:33 → EDBEDREQ 14:09 → 2W 06-20 13:20 → 2E 06-21 16:43
PROC: 06L38CZ Occlusion of Esophageal Vein with Extraluminal Device, Via Natural or Artificial Opening Endoscopic (ICD-10-PCS; principal; 2019-06-19 13:07)
PROC: 0W9G3ZZ Drainage of Peritoneal Cavity, Percutaneous Approach (ICD-10-PCS; 2019-06-23)
DX: I85.11 Secondary esophageal varices with bleeding (principal); K76.6 Portal hypertension; R18.8 Other ascites; K72.90 Hepatic failure, unspecified without coma; K31.89 Other diseases of stomach and duodenum; D50.0 Iron deficiency anemia secondary to blood loss (chronic); E11.9 Type 2 diabetes mellitus without complications; K74.60 Unspecified cirrhosis of liver; K80.80 Other cholelithiasis without obstruction; I95.9 Hypotension, unspecified; K21.9 Gastro-esophageal reflux disease without esophagitis; Z86.73 Personal history of transient ischemic attack (TIA), and cerebral infarction without residual deficits
CPT/HCPCS: 36415; 71045; 76700; 76942; 80048; 80053; 82140; 82550; 82962; 84484; 85007; 85025; 85610; 85730; 86850; 86900; 86901; 87081; 94003; 94150; 96374; 99285; J1815

== ENCOUNTER 2019-07-15 17:18 | Inpatient (IN) | payer MEDICARE, MEDICAID ==
[~2019-07-15] VITALS: Ht 165.1 cm; Wt 69.6 kg
[~2019-07-15 17:18] MED LIST: ACETAMINOPHEN325 M1 ORAL; ASPIR 8181 MG ORAL; ATORVASTATIN CA40 MG ORAL; CITRATE OF MAG296 ML PO; DOCUSATE SODIU100 MG ORAL; FERROUS SULFAT325 MG ORAL; FOLIC ACID1 MG ORAL; LACTULOSE20 GM/301 ORAL; MAGNESIUM OXID400 M1 ORAL; MECLIZINE HCL12.5 MG ORAL; METFORMIN HCL1000 M1 ORAL; MIDODRINE HCL10 MG ORAL; NOVOLIN R100 UNIT/1 SUBQ; PRO-STAT 64 LI887 ML PO; PROTONIX40 MG ORAL; SENNA8.6 M2 PO; TRAMADOL HCL50 MG ORAL; VITAMIN D33000 UNI1 PO
[2019-07-15] MEDS ORDERED: ATORVASTATIN CA40 MG ORAL (17:30)
[2019-07-15] MEDS ORDERED: SYMLIN600 MCG/1 SUBQ (17:30)
[2019-07-15] MEDS ORDERED: MAGNESIUM OXID400 M1 ORAL (17:30)
[2019-07-15] MEDS ORDERED: SENNA8.6 M2 PO (17:30)
--- NOTE | 2019-07-15 17:35 | NUR ---
ED Nurse Note: Patient BIBA from [facility] d/t altered LOC x 1 hour. Per EMS, patient can usually communicate at baseline, but currently patient non-responsive. Patient on the diagnostic cardiac sonographer, VSS. Blood Glucose 135, Dr. Gibson aware. Blood, urine, and vre/mrsa swabs sent to lab.
[2019-07-15 18:38] LABS: APPEARANCE,URINE CLEAR; BILIRUBIN, URINE 2+ (NEGATIVE); GLUCOSE, URINE (UA) NEGATIVE (NEGATIVE); KETONES,URINE 2+ (NEGATIVE); LEUKOCYTE ESTERASE ,URINE NEGATIVE (NEGATIVE); NITRITE,URINE NEGATIVE (NEGATIVE); PH,URINE 5 (4.5-8.0); PROTEIN,URINE 1+ (NEGATIVE); UROBILINOGEN,URINE 1 MG/DL (0.0-1.0)
[2019-07-15 18:40] LABS: BASOPHILS % (AUTO) 1.1 % (0.0-2.0); EOSINOPHILS % (AUTO) 0.3 % (0.0-3.0); HEMATOCRIT 26.3 % (37.0-47.0); HEMOGLOBIN 8.3 G/DL (12.0-16.0); LYMPHOCYTES % (AUTO) 19.2 % (20.0-45.0); MEAN CORPUSCULAR VOLUME 96 FL (80-99); MONOCYTES % (AUTO) 12.1 % (1.0-10.0); NEUTROPHILS % (AUTO) 67.4 % (45.0-75.0); PLATELET COUNT 167 K/UL (150-450); RED BLOOD COUNT 2.74 M/UL (4.20-5.40); RED CELL DISTRIBUTION WIDTH 14.1 % (11.6-14.8); WHITE BLOOD COUNT 6.7 K/UL (4.8-10.8)
[2019-07-15 18:41] LABS: COLOR,URINE YELLOW
[2019-07-15 18:43] LABS: INR 1.1 (0.9-1.1)
[2019-07-15 18:46] LABS: ANION GAP 12 mmol/L (5-15); BLOOD UREA NITROGEN 47 mg/dL (7-18); CARBON DIOXIDE 23 MMOL/L (21-32); CHLORIDE 102 MMOL/L (98-107); CREATININE 1.4 MG/DL (0.55-1.30); POTASSIUM 5.9 MMOL/L (3.5-5.1); SODIUM 137 MMOL/L (136-145)
--- NOTE | 2019-07-15 18:46 | Diagnostic Imaging Report ---
Indications: Altered mental status Technique: Spiral acquisitions obtained through the brain. Angled axial and coronal 5 x 5 mm slices were reconstructed. Total dose length product 992 mGycm. CTDI vol(s) 53 mGy. Dose reduction achieved using automated exposure control Comparison: None. Findings: There is questionable slight loss of de la cruz-white differentiation in the posterior inferior left parietal lobe. No acute intracranial hemorrhage There is age-related enlargement of the ventricles and extra axial CSF spaces. There is minimal periventricular deep white matter low-attenuation, consistent with chronic microvascular ischemic change. The visualized orbits and sinuses are unremarkable. The calvarium is intact. The mastoids are clear. Impression: . Questionable left posterior inferior parietal hyperattenuation, could indicate subacute ischemia but could also be artifactual. Correlate with clinical findings and consider MRI to better characterize if clinically indicated. Negative for acute intracranial bleed or mass effect This agrees with the preliminary interpretation provided overnight by [facility] teleradiology service. The CT scanner at [facility] is accredited by the [employer] and the scans are performed using protocols designed to limit radiation exposure to as low as reasonably achievable to attain images of sufficient resolution adequate for diagnostic evaluation.
[2019-07-15 18:50] LABS: ALANINE AMINOTRANSFERASE 16 U/L (12-78); ALBUMIN 2.5 G/DL (3.4-5.0); ALBUMIN/GLOBULIN RATIO 0.5 (1.0-2.7); ALKALINE PHOSPHATASE 76 U/L (46-116); ASPARTATE AMINO TRANSFERASE 26 U/L (15-37); BILIRUBIN,TOTAL 0.8 MG/DL (0.2-1.0); CHOLESTEROL 134 MG/DL (< 200); HDL CHOLESTEROL 35 MG/DL (40-60); TRIGLYCERIDES 102 MG/DL (30-150)
[2019-07-15] MEDS ORDERED: Lactulose 200 GM in NS Irrig 1000ml 700 ML RECTAL ONE (19:00)
--- NOTE | 2019-07-15 19:05 | NUR ---
ED Nurse Note: Handoff report given to Marilou PIERSON
[2019-07-15] MEDS ORDERED: SandoSTATIN 50mcg Inj IVP ONE (19:30)
[2019-07-15] MEDS ORDERED: Octreotide Acetate 500 MCG in Sodium Chloride 499 ML IV SCH (19:30)
--- NOTE | 2019-07-15 19:30 | NUR ---
ED Nurse Note: pt received from KENNA Gustafson. pt is AOx0, which appears to be baseline for pt. pt had a BM and when changed, primary and secondary RN noticed maroon soft stools, ROHIT notified. pt also appeared to have 10mL of what appeared to be blood and phlegm suctioned from mouth. ROHIT aware and notes pt was seen here at [facility] for esophageal varices Addendum: 07/15/19 at 2046 by [facility] ED Nurse Note: pt is usually verbal at [facility], received pt AOx0 and non-verbal, which was endorsed by previous KENNA Gustafson that this was the conidition pt arrived to ED in.
--- NOTE | 2019-07-15 19:32 | NUR ---
ED Nurse Note: after adminsitration of lactulose enema, there appeared to be a large amount of maroon fluid evacuated from the pt. pt has been cleaned and dried with many absorbant pads placed underneath to continue to collect fluid and keep pt clean and dry.
--- NOTE | 2019-07-15 19:34 | Emergency Room Report ---
History of Present Illness General Chief Complaint: Altered Level of Consciousness Source: Patient, Medical Record Present Illness HPI Patient is an 78-year-old female brought in by EMS after increased altered mental status. Patient had recently been sent in from rehab facility. She had prior history of esophageal varices and a recent banding procedure. Was noted to be increasingly somnolent. History of cirrhosis. Patient was noted to have increased maroon color stool. Patient is normally somewhat awake and alert. History is limited by patient's mental status. Allergies: Coded Allergies: No Known Allergies (Unverified , 06/19/19) COVID-19 Screening Contact w/high risk pt: No Recent Travel to affected area: No Experienced COVID-19 symptoms?: No Patient History Past Medical History: see triage record Reviewed Nursing Documentation: PMH: Agreed; PSxH: Agreed Nursing Documentation-PMH Past Medical History: No History, Except For Hx Cardiac Problems: Yes - cardiomyopathy, hyperlipidemia Hx Hypertension: Yes Hx Diabetes: Yes Hx Cancer: No Hx Gastrointestinal Problems: Yes - 3 Hernias, esophageal varices, GERD Hx Neurological Problems: Yes - encephalopathy Hx Cerebrovascular Accident: Yes - TIA, CVA Hx Transient Ischemic Attacks: Yes Review of Systems All Other Systems: negative except mentioned in HPI Physical Exam Vital Signs Date Time Temp Pulse Resp B/P (MAP) Pulse Ox O2 Delivery O2 Flow Rate FiO2 07/15/19 17:19 97.5 85 20 123/64 (83) 97 Room Air Sp02 EP Interpretation: reviewed, normal General Appearance: Chronically Ill, Stupor Head: atraumatic Eyes: bilateral eye other - Minimally reactive pupils. Gag reflex present. ENT: normal ENT inspection, hearing grossly normal, normal voice Neck: normal inspection, full range of motion, supple, no bony tend Respiratory: normal inspection, lungs clear, normal breath sounds, no respiratory distress, no retraction, no wheezing Cardiovascular #1: regular rate, rhythm, no edema Gastrointestinal: soft, no guarding, no hernia, other - distended Genitourinary: no CVA tenderness Musculoskeletal: normal inspection, back normal, normal range of motion Neurologic: motor weakness, other - Eyes open, withdraws to pain, aphasia. Psychiatric: normal inspection, judgement/insight normal, mood/affect normal Procedures Critical Care Time Critical Care Time critical care time excluding separately billed procedures was 45 minutes. Medical Decision Making Diagnostic Impression: Primary Impression: Altered level of consciousness Additional Impressions: GI bleed Hepatic encephalopathy Esophageal varices ER Course Patient presented for altered mental status. Differential diagnosis include was not limited to hepatic encephalopathy, intracranial hemorrhage, coagulopathy , GI bleed, CVA among others. Because of complexity of patient's case laboratory tests and imaging studies were ordered. CT imaging was ordered and showed atrophic changes without evident intracranial hemorrhage. Patient was noted to have some maroon-colored stool. Laboratory testing showed markedly elevated ammonia level consistent with encephalopathy. Patient would be admitted to the hospital. She started on Sandostatin drip and given bolus and a statin. She is given lactulose in the emergency department. Dr. Jonny Mcgregor was contacted for inpatient management due to capitated physician. Dr. Jj Hermosillo was contacted for GI consult. Patient will be admitted to ICU given patient's significant altered mental status and bleeding. Labs Test 07/15/19 17:25 07/15/19 17:45 White Blood Count 6.7 K/UL (4.8-10.8) Red Blood Count 2.74 M/UL (4.20-5.40) Hemoglobin 8.3 G/DL (12.0-16.0) Hematocrit 26.3 % (37.0-47.0) Mean Corpuscular Volume 96 FL (80-99) Mean Corpuscular Hemoglobin 30.3 PG (27.0-31.0) Mean Corpuscular Hemoglobin Concent 31.6 G/DL (32.0-36.0) Red Cell Distribution Width 14.1 % (11.6-14.8) Platelet Count 167 K/UL (150-450) Mean Platelet Volume 6.4 FL (6.5-10.1) Neutrophils (%) (Auto) 67.4 % (45.0-75.0) Lymphocytes (%) (Auto) 19.2 % (20.0-45.0) Monocytes (%) (Auto) 12.1 % (1.0-10.0) Eosinophils (%) (Auto) 0.3 % (0.0-3.0) Basophils (%) (Auto) 1.1 % (0.0-2.0) Prothrombin Time 12.1 SEC (9.30-11.50) Prothromb Time International Ratio 1.1 (0.9-1.1) Activated Partial Thromboplast Time 30 SEC (23-33) Urine Color Yellow Urine Appearance Clear Urine pH 5 (4.5-8.0) Urine Specific [place] 1.015 (1.005-1.035) Urine Protein 1+ (NEGATIVE) Urine Glucose (UA) Negative (NEGATIVE) Urine Ketones 2+ (NEGATIVE) Urine Blood Negative (NEGATIVE) Urine Nitrite Negative (NEGATIVE) Urine Bilirubin 2+ (NEGATIVE) Urine Ictotest Negative (NEGATIVE) Urine Urobilinogen 1 MG/DL (0.0-1.0) Urine Leukocyte Esterase Negative (NEGATIVE) Urine RBC 0-2 /HPF (0 - 2) Urine WBC 0-2 /HPF (0 - 2) Urine Squamous Epithelial Cells Few /LPF (NONE/OCC) Urine Bacteria Few /HPF (NONE) Sodium Level 137 MMOL/L (136-145) Potassium Level 5.9 MMOL/L (3.5-5.1) Chloride Level 102 MMOL/L (98-107) Carbon Dioxide Level 23 MMOL/L (21-32) Anion Gap 12 mmol/L (5-15) Blood Urea Nitrogen 47 mg/dL (7-18) Creatinine 1.4 MG/DL (0.55-1.30) Estimat Glomerular Filtration Rate 36.2 mL/min (>60) Glucose Level 145 MG/DL (74-106) Calcium Level 9.0 MG/DL (8.5-10.1) Total Bilirubin 0.8 MG/DL (0.2-1.0) Aspartate Amino Transf (AST/SGOT) 26 U/L (15-37) Alanine Aminotransferase (ALT/SGPT) 16 U/L (12-78) Alkaline Phosphatase 76 U/L (46-116) Ammonia 239 umol/L (11-32) Troponin I 0.000 ng/mL (0.000-0.056) Total Protein 7.5 G/DL (6.4-8.2) Albumin 2.5 G/DL (3.4-5.0) Globulin 5.0 g/dL Albumin/Globulin Ratio 0.5 (1.0-2.7) Triglycerides Level 102 MG/DL (30-150) Cholesterol Level 134 MG/DL (< 200) LDL Cholesterol 81 mg/dL (<100) HDL Cholesterol 35 MG/DL (40-60) Cholesterol/HDL Ratio 3.8 (3.3-4.4) Lipase 40 U/L (73-393) Last Vital Signs Date Time Temp Pulse Resp B/P (MAP) Pulse Ox O2 Delivery O2 Flow Rate FiO2 07/15/19 17:35 85 20 Room Air 07/15/19 17:19 97.5 123/64 (83) 97 Status: unchanged Disposition: ADMITTED INPATIENT Condition: Critical Referrals: NON PHYSICIAN (PCP) Javy Gibson MD Jul 15, 2019 19:34
--- NOTE | 2019-07-15 19:35 | NUR ---
ED Nurse Note: inpsection of abd shows a rigid, distended abd with umbilical and hiatal hernia noted. skin is clean dry and intact.
--- NOTE | 2019-07-15 19:40 | NUR ---
ED Nurse Note: called pharmacy for sandostatin order that was not in ER pyxis. verified orders with ERMD for 50 mcg IVP of sandostatin and 500 mcg sandostatin IV drip. pharmacy will have medications ready for knot picker cloth in 5 minutes
[2019-07-15 19:45] VITALS: BP 120/65
--- NOTE | 2019-07-15 20:00 | NUR ---
ED Nurse Note: after administration of 50 mcg sandostatin IVP, pt had 1 episode of emesis that appeared to be mostly blood and saliva as well as a large blood clot witnessed by primary and secondary RN. sandostatin IV infusion began per ERMD orders. pt VSS at the moment, safety precautions are in place. will continue to closely monitor pt.
[2019-07-15 20:24] VITALS: BP 117/65
--- NOTE | 2019-07-15 20:30 | NUR ---
ED Nurse Note: received call from lab that blood for pt hemolyzed, requested new pink tops be sent down for type and screen. blood collected and sent back down to lab. pt remains in no acute distress with stable vital signs. sandostatin is infusing per ERMD orders. safety precautions are in place. both IV lines are intact and patent, flushing well. will continue to closely monitor pt and await further orders.
--- NOTE | 2019-07-15 21:52 | NUR ---
ED Nurse Note: Spoke with Jolene Contreras, telephone consent obtained for BT. Consent was signed by 2 RNs. Addendum: 07/15/19 at 2304 by CAMERON ROHIT Gibson also signed blood transfusion consent paperwork.
[2019-07-15 22:44] VITALS: BP 132/51
--- NOTE | 2019-07-15 22:53 | NUR ---
ED Nurse Note: pt is in bed with eyes open and mentating at her baseline since she has been in the ED, occasionally groaning. pt has simvostatin infusing and blood transfusion running with no adverse reaction observed. vital signs remain stable. pt has had 3 BM's, changed and cleaned each time. pt has blanket and pillow provided for comfort. safety measures are in place, awaiting ICU bed to become available upstairs for pt, will prepare for admission and continue to monitor pt Addendum: 07/15/19 at 2341 by CAMERON medication is sandostatin
--- NOTE | 2019-07-15 23:42 | NUR ---
ED Nurse Note: report given to KENNA Vasques. he stated that the room would be ready in 15 minutes
--- NOTE | 2019-07-15 23:55 | NUR ---
TRANSFER TO FLOOR: Patient transferred to as ordered, per Dr. Gibson. Report given to KENNA Vasques. Belongings sent with pt
[2019-07-16] VITALS (23 sets, daily range): BP systolic 104–147; BP diastolic 45–85
--- NOTE | 2019-07-16 | NUR ---
NURSE NOTES: Admitted from ED this 78 yo female with ALOC, GI bleed. Pt obtunded but not in any distress. TRACEY's, grimaces to pain. One unit of blood infusing on arrival via RFA IV site. IV site on Lhand intact with Sandostatin gtt running at 50mcg/h. Skin cold to touch,pale, rough, otherwise intact. Incontinent of maroon colored stools. No breathing difficulty, saturating 98% on RA. No whiting. Called DR Mcgregor for orders.
[2019-07-16] MEDS ORDERED: Octreotide Acetate 500 MCG in Sodium Chloride 499 ML IV SCH (00:30)
--- NOTE | 2019-07-16 00:45 | NUR ---
NURSE NOTES: 1st unit absorbed completely with no observed complications. Skin cold to touch, temp 94.1 axillary. Davida Hugger applied. Will continue to monitor.
--- NOTE | 2019-07-16 01:00 | NUR ---
NURSE NOTES: 2nd unit PRBC started as ordered by Dr Mcgregor. Pt remains obtunded, moaning occasionallly. New PIV inserted on RFA using g 22 angiocath. Protonix gtt started at 8mg/h.
[2019-07-16] MEDS: Pantoprazole 80 MG in NS 250 ML IV SCH ×3 (02:06→12:00)
--- NOTE | 2019-07-16 03:00 | NUR ---
NURSE NOTES: Remains obtunded, grimacing to pain. Localizes pain as well. HR 57; BP stable. No distress. IV sites patent. 2nd unit PRBC completely absorbed without any incident
--- NOTE | 2019-07-16 05:00 | NUR ---
NURSE NOTES: AM care rendered. Oral care and oral suctioning done. Bladder area tender and firm. No urine via purewick. Silva cath inserted as ordered. Urine dark gorge. Had 1 small amt of maroon colored stool.
[2019-07-16 06:52] LABS: BASOPHILS % (AUTO) 0.9 % (0.0-2.0); EOSINOPHILS % (AUTO) 0.1 % (0.0-3.0); HEMATOCRIT 30.2 % (37.0-47.0); HEMOGLOBIN 10.5 G/DL (12.0-16.0); LYMPHOCYTES % (AUTO) 13.3 % (20.0-45.0); MEAN CORPUSCULAR VOLUME 89 FL (80-99); MONOCYTES % (AUTO) 11.6 % (1.0-10.0); NEUTROPHILS % (AUTO) 74.2 % (45.0-75.0); PLATELET COUNT 134 K/UL (150-450); RED BLOOD COUNT 3.41 M/UL (4.20-5.40); RED CELL DISTRIBUTION WIDTH 12.9 % (11.6-14.8)
[2019-07-16] MEDS: Octreotide Acetate 500 MCG in Sodium Chloride 499 ML IV SCH ×2 (07:04→17:30)
--- NOTE | 2019-07-16 07:08 | NUR ---
HAND-OFF: Report given to Arsh Casanova RN.
--- NOTE | 2019-07-16 07:09 | NUR ---
NURSE NOTES: Received patient from Layo PIERSON. Patient is obtunded, retracts to light pain. Sinus Rhythm on the Heart Monitor, HR 78. Patient is on room air, has labored breathing, use of accessory muscles, O2 Saturation at 97%. IV site is Left wrist 20g intact and receiving Sandostatin at 50mcg/hr, Right Forearm 20g receiving Protonix at 8mg/hr and NS at 75cc/hr. Right Wrist 20g is intact and asymptomatic. Silva catheter is intact and draining. Bed is locked, placed in lowest position, side rails up x3, bed alarm on, call light within reach. Will continue to monitor.
--- NOTE | 2019-07-16 08:00 | NUR ---
NURSE NOTES: Patient turned and repositioned, oral suction given, patient tolerated well. Patient remains obtunded, withdraws from pain. Accessory Muscles still in use for breathing, O2 saturation at 100%. Will continue to monitor.
--- NOTE | 2019-07-16 10:25 | NUR ---
*-* INSURANCE *-* ALL AVAILABLE CLINICALS HAVE BEEN FAXED TO: [facility] [employer] F: [phone]
--- NOTE | 2019-07-16 10:53 | History & Physical ---
History and Physical History & Physicial HISTORY OF PRESENT ILLNESS: The patient is an 78-year-old female, who presents for further evaluation and care of vomiting blood. Gastroenterology was consulted for GI bleed. Dr. Hermosillo saw the patient. She has previously had esophageal varices, status post banding of three of the varices along with portal hypertensive gastropathy. The patient was transferred to ICU, was mildly awake, but confused and now with an elevated ammonia level. ALLERGIES: No known drug allergies. PAST MEDICAL HISTORY: 1. Alcohol dependency. 2. Anemia. 3. Cardiomyopathy. 4. GERD. 5. Gastritis. 6. Diabetes mellitus. 7. CVA. FAMILY HISTORY: Positive for hypertension and diabetes. PAST SURGICAL HISTORY: Noncontributory. REVIEW OF SYSTEMS: Cannot be obtained. The patient confused and disoriented. LABORATORY DATA: Reviewed PHYSICAL EXAMINATION: VITAL SIGNS: Blood pressure 129/62, respiratory rate 18, pulse 88, temperature 97.0, and 98% oxygen saturation on room air. GENERAL: The patient is somnolent, but arousable. HEENT: Extraocular muscles intact. No lymphadenopathy CARDIOVASCULAR: S1, S2. No rubs or gallops. PULMONARY: Clear to auscultation bilaterally. No rales, rhonchi or wheezes. ABDOMEN: Nondistended and nontender. EXTREMITIES: No edema. ASSESSMENT AND PLAN: 1. GI bleed likely due to esophageal varices, status post previous banding x3. I will defer management to Gastroenterology. 2. Acute encephalopathy due to elevated lactulose level. NG tube has been recommended and I will initiate lactulose therapy. Defer further management to Gastroenterology. 3. Anemia secondary to GI bleed. Blood transfusion if hemoglobin less than 7. 4. Diabetes mellitus. I will continue Accu-Cheks and as the patient is NPO, we will start D5 1/2 normal saline. 5. DVT prophylaxis with SCD. MD Meche Lance Omar Syed MD Jul 16, 2019 10:53
--- NOTE | 2019-07-16 10:58 | NUR ---
HOG KILLER NOTE Pt was admitted to ICU on 07/15/2019. Per chart review,pt is A&O 0x. ALANNAH contacted pt's niece, Marcelle Contreras [phone]. Marcelle Contreras is monolingual Georgian. Marcelle's son-in-law volunteered to interpret. Marcelle reports pt has no POA and she does not have any children. The next of kin is Marcelle Contreras. However, the decision-maker is pt's previous [facility] provider Jolene Yepez [phone]. Marcelle encouraged this SW to contact Jolene Yepez for detailed information. Other emergency contact: Tri Gordon (family member, great granddaughter) [phone] SW spoke w/ Jolene Yepez [phone] that she was the IHSS provider for 10 years. IHSS service has discontinued after pt admitting to SNF. Pt's family was hardly involved in pt's care and tx. Thus, Jolene has been involved w/ pt's tx and care. Pt does not have POA/AD. Per Jolene, pt always expressed full code. Jolene is more aware of pt's medical hx than the family members.
[2019-07-16] MEDS ORDERED: Lidocaine 1% MPF 10mg/ml 5ml ONE (11:00)
[2019-07-16] MEDS ORDERED: Propofol 200mg/20ml IV ONE (11:00)
--- NOTE | 2019-07-16 11:01 | NUR ---
*-* INSURANCE *-* ALL AVAILABLE CLINICALS HAVE BEEN FAXED TO: [facility] [employer] F: [phone]
[2019-07-16] MEDS: D5 1/2NS 1,000 ML IV SCH (11:19)
--- NOTE | 2019-07-16 11:34 | NUR ---
NURSE NOTES: Patient went down to GI Lab accompanied by OR Nurse and Tech.
[2019-07-16 11:40] LABS: BLOOD UREA NITROGEN 49 mg/dL (7-18); CALCIUM 8.6 MG/DL (8.5-10.1); CARBON DIOXIDE 19 MMOL/L (21-32); CHLORIDE 103 MMOL/L (98-107); CREATININE 1.6 MG/DL (0.55-1.30); SODIUM 137 MMOL/L (136-145)
[2019-07-16] MEDS ORDERED: NS 500ML IVPB ONE (11:45)
--- NOTE | 2019-07-16 11:45 | Pre-Procedure Note/Attestation ---
Pre-Procedure Note/Attestation Complete Prior to Procedure Planned Procedure: not applicable Procedure Narrative: egd Indications for Procedure Pre-Operative Diagnosis: gib Attestation I attest that I discussed the nature of the procedure; its benefits; risks and complications; and alternatives (and the risks and benefits of such alternatives ), prior to the procedure, with the patient (or the patient's legal technology sales representative). I attest that, if there was a reasonable possibility of needing a blood transfusion, the patient (or the patient's legal technology sales representative) was given the [facility] standardized written summary, pursuant to the Miugel Angel Eleonora Blood Safety Act ([place] Health and Safety Code # 1645, as amended). I attest that I re-evaluated the patient just prior to the surgery and that there has been no change in the patient's H&P, except as documented below: Jj Hermosillo MD Jul 16, 2019 11:45
--- NOTE | 2019-07-16 12:06 | Anethesia Preoperative Eval ---
Anesthesia Pre-op PMH/ROS General Date of Evaluation: Jul 16, 2019 Time of Evaluation: 11:18 Anesthesiologist: Sami ASA Score: ASA 4 Mallampati Score Class I : Soft palate, uvula, fauces, pillars visible Class II: Soft palate, uvula, fauces visible Class III: Soft palate, base of uvula visible Class IV: Only hard plate visible Mallampati Classification: Class II Surgeon: Bay Diagnosis: GI Bleed Surgical Procedure: EGD, Possible Banding Anesthesia History: none Family History: no anesthesia problems Allergies: Coded Allergies: No Known Allergies (Unverified , 06/19/19) Medications: see eMAR Patient NPO?: Yes Past Medical History Cardiovascular: Reports: HTN, other - HL, Cardiomyopathy Pulmonary: Reports: COPD Gastrointestinal/Genitourinary: Reports: GERD, other - Esophagael Varices Neurologic/Psychiatric: Reports: dementia, CVA, TIA Endocrine: Reports: DM Hematology/Immune: Reports: anemia PSxH Narrative: R Foot and Knee SX Anesthesia Pre-op Phys. Exam Physician Exam Last Vital Signs Date Time Temp Pulse Resp B/P (MAP) Pulse Ox O2 Delivery O2 Flow Rate FiO2 07/16/19 11:00 95 20 147/62 (90) 100 07/16/19 08:00 Room Air 07/16/19 08:00 97.5 Constitutional: NAD Neurologic: CN 2-12 intact Cardiovascular: RRR Respiratory: CTA Gastrointestinal: S/NT/ND Airway Exam Mallampati Score: Class II MO: limited ROM: limited Teeth: missing, intact Anesthesia Pre-op A/P Labs Hematology Test 07/15/19 17:25 07/16/19 06:24 White Blood Count 6.7 K/UL (4.8-10.8) 8.0 K/UL (4.8-10.8) Red Blood Count 2.74 M/UL (4.20-5.40) L 3.41 M/UL (4.20-5.40) L Hemoglobin 8.3 G/DL (12.0-16.0) L 10.5 G/DL (12.0-16.0) L Hematocrit 26.3 % (37.0-47.0) L 30.2 % (37.0-47.0) L Mean Corpuscular Volume 96 FL (80-99) 89 FL (80-99) Mean Corpuscular Hemoglobin 30.3 PG (27.0-31.0) 30.7 PG (27.0-31.0) Mean Corpuscular Hemoglobin Concent 31.6 G/DL (32.0-36.0) L 34.6 G/DL (32.0-36.0) Red Cell Distribution Width 14.1 % (11.6-14.8) 12.9 % (11.6-14.8) Platelet Count 167 K/UL (150-450) 134 K/UL (150-450) L Mean Platelet Volume 6.4 FL (6.5-10.1) L 5.3 FL (6.5-10.1) L Neutrophils (%) (Auto) 67.4 % (45.0-75.0) 74.2 % (45.0-75.0) Lymphocytes (%) (Auto) 19.2 % (20.0-45.0) L 13.3 % (20.0-45.0) L Monocytes (%) (Auto) 12.1 % (1.0-10.0) H 11.6 % (1.0-10.0) H Eosinophils (%) (Auto) 0.3 % (0.0-3.0) 0.1 % (0.0-3.0) Basophils (%) (Auto) 1.1 % (0.0-2.0) 0.9 % (0.0-2.0) Coagulation Test 07/15/19 17:45 Prothrombin Time 12.1 SEC (9.30-11.50) H Prothromb Time International Ratio 1.1 (0.9-1.1) Activated Partial Thromboplast Time 30 SEC (23-33) Chemistry Test 07/15/19 17:45 07/16/19 06:24 Sodium Level 137 MMOL/L (136-145) 137 MMOL/L (136-145) Potassium Level 5.9 MMOL/L (3.5-5.1) H 6.0 MMOL/L (3.5-5.1) *H Chloride Level 102 MMOL/L (98-107) 103 MMOL/L (98-107) Carbon Dioxide Level 23 MMOL/L (21-32) 19 MMOL/L (21-32) L Anion Gap 12 mmol/L (5-15) Blood Urea Nitrogen 47 mg/dL (7-18) H 49 mg/dL (7-18) H Creatinine 1.4 MG/DL (0.55-1.30) H 1.6 MG/DL (0.55-1.30) H Estimat Glomerular Filtration Rate 36.2 mL/min (>60) 31.0 mL/min (>60) Glucose Level 145 MG/DL (74-106) H 142 MG/DL (74-106) H Calcium Level 9.0 MG/DL (8.5-10.1) 8.6 MG/DL (8.5-10.1) Total Bilirubin 0.8 MG/DL (0.2-1.0) Aspartate Amino Transf (AST/SGOT) 26 U/L (15-37) Alanine Aminotransferase (ALT/SGPT) 16 U/L (12-78) Alkaline Phosphatase 76 U/L (46-116) Ammonia 239 umol/L (11-32) H Troponin I 0.000 ng/mL (0.000-0.056) Total Protein 7.5 G/DL (6.4-8.2) Albumin 2.5 G/DL (3.4-5.0) L Globulin 5.0 g/dL Albumin/Globulin Ratio 0.5 (1.0-2.7) L Triglycerides Level 102 MG/DL (30-150) Cholesterol Level 134 MG/DL (< 200) LDL Cholesterol 81 mg/dL (<100) HDL Cholesterol 35 MG/DL (40-60) L Cholesterol/HDL Ratio 3.8 (3.3-4.4) Lipase 40 U/L (73-393) L Risk Assessment & Plan Assessment: ASA 4 Plan: TIVA Status Change Before Surgery: Jose Manuel Jin MD Jul 16, 2019 12:06
--- NOTE | 2019-07-16 12:10 | Immediate Post-Op Evaluation ---
Immediate Post-Op Evalulation Immediate Post-Op Evalulation Procedure: EGD with Banding Date of Evaluation: Jul 16, 2019 Time of Evaluation: 12:28 IV Fluids: 500 NS Blood Products: 0 Estimated Blood Loss: 3 Urinary Output: 0 Blood Pressure Systolic: 141 Blood Pressure Diastolic: 67 Pulse Rate: 80 Respiratory Rate: 16 O2 Sat by Pulse Oximetry: 99 Temperature (Fahrenheit): 97.6 Pain Score (1-10): 1 Nausea: No Vomiting: No Complications 0 Patient Status: awake, reacts, patent, none Hydration Status: adequate Jose Manuel Gallardo MD Jul 16, 2019 12:10
--- NOTE | 2019-07-16 12:13 | 48 Hour Post Anesthesia Eval ---
Post Anesthesia Evaluation Procedure: EGD with Banding Date of Evaluation: Jul 16, 2019 Time of Evaluation: 14:23 Blood Pressure Systolic: 139 0: 82 Pulse Rate: 81 Respiratory Rate: 18 Temperature (Fahrenheit): 98 O2 Sat by Pulse Oximetry: 96 Airway: patent Nausea: No Vomiting: No Pain Intensity: 1 Hydration Status: adequate Cardiopulmonary Status: Stable Mental Status/LOC: patient returned to baseline Follow-up Care/Observations: 0 Post-Anesthesia Complications: 0 Follow-up care needed: N/A Jose Manuel Gallardo MD Jul 16, 2019 12:13
--- NOTE | 2019-07-16 12:17 | Endoscopy Procedure Note ---
Endoscopy Procedure Note General Indication for Procedure: gib Procedures Performed: EGD Operative Findings/Diagnosis: active variceal bleed Specimen: none Pt Tolerated Procedure Well: Yes Estimated Blood Loss: none Anesthesia Anesthesiologist: zelda Anesthesia: MAC Inserted Devices Implant(s) used?: No GI Core Measures 50 yrs or older w/o bx or poly: Not Applicable 10yrs. F/U recommended: Not Applicable Jj Hermosillo MD Jul 16, 2019 12:16
[2019-07-16] MEDS: NovoLOG Insulin Flexpen SUBQ SCH ×3 (12:50→20:55)
[2019-07-16] MEDS ORDERED: Lactulose 20gm/30ml UDC ORAL SCH (13:00)
[2019-07-16] MEDS: cefTRIAXone 1 GM in D5W 55 ML IVPB SCH (13:04)
--- NOTE | 2019-07-16 13:16 | NUR ---
NURSE NOTES: Patient returned to ICU room at approximately 1255, patient in stable condition. Nasopharyngeal suction done on patient, thick mucous secretions, approximately 10cc removed. Will continue to monitor.
--- NOTE | 2019-07-16 13:28 | NUR ---
NURSE NOTES: Left message to Dr. Mcgregor's office regarding Potassium level. Awaiting call back.
--- NOTE | 2019-07-16 13:50 | NUR ---
NURSE NOTES: Received call back from Dr. Sin, instructed to call Dr. Angelo regarding lab results.
--- NOTE | 2019-07-16 13:50 | NUR ---
NURSE NOTES: Spoke to Dr. Angelo over the phone. Orders received. Addendum: 07/16/19 at 1351 by Elizabeth Casanova RN NURSE NOTES: Spoke to Dr. Angelo over the phone regarding potassium level. Orders received.
[2019-07-16] MEDS ORDERED: Calcium Gluconate 10% 1 GM in NS 110 ML IVPB ONE (14:00)
[2019-07-16] MEDS ORDERED: Insulin Human Regular 100units/ml 3ml IV SCH (14:00)
[2019-07-16] MEDS ORDERED: Lactulose 200 GM in NS Irrig 1000ml 700 ML RECTAL SCH (15:00)
--- NOTE | 2019-07-16 15:17 | NUR ---
CASE MANAGEMENT: REVIEW 07/16/2019 SI:AMS. ENCEPHALOPATHY. T 97.5 HR 75 RR 28 B/P 130/55 SATS 100% ON RA LABS: K 6 CO2 19 BUN 49 CR 1.6 GLU 142 IS:PROTONIX IV @ 25 ML/HR OCTREOTIDE 50 ML/HR DNS @ 50 ML/HR LACTULOSE REC Q8H INSULIN ASPART SUBQ AC/HS LACTULOSE REC X1 CEFTRIAXONE IV Q24H ICU
--- NOTE | 2019-07-16 16:48 | NUR ---
NURSE NOTES: Patient's rectal temperature read 94.3 degrees Fahrenheit. Bare hugger placed on patient with additional blankets. Will continue to monitor.
--- NOTE | 2019-07-16 17:15 | NUR ---
NURSE NOTES: Left message to Dr. Mcgregor's office regarding patient's sinus tachycardia and rectal temperature of 94.3 degrees Fahrenheit.
--- NOTE | 2019-07-16 17:30 | NUR ---
NURSE NOTES: Received call back from Dr. Mcgregor. No new orders. Will continue to monitor.
--- NOTE | 2019-07-16 18:00 | NUR ---
NURSE NOTES: Patient's temperature reassessed, 97.4 degrees Fahrenheit via left axilla. Blankets left on patient. Will continue to monitor.
--- NOTE | 2019-07-16 18:10 | NUR ---
NURSE NOTES: Gave bed bath to patient, patient tolerated well, no signs of acute distress. Will continue to monitor.
--- NOTE | 2019-07-16 18:44 | Consultation ---
DATE OF CONSULTATION: 07/16/2019 CONSULTING PHYSICIAN: Juwan Angelo MD. REFERRING PHYSICIAN: Jonny Mcgregor M.D. REASON FOR CONSULTATION: 1. Acute kidney injury. 2. Hyperkalemia. HISTORY OF PRESENT ILLNESS: The patient is an 78-year-old female who was admitted overnight for evaluation and care of hematemesis/vomiting blood. The patient does have a history of esophageal varices with recent bleed, had been to [place] recently. Gastroenterology, Dr. Hermosillo has been reconsulted. The patient was confused, disoriented elevated ammonia levels. Creatinine 1.4 with a potassium of 5.9. ALLERGIES: No known drug allergies PAST MEDICAL HISTORY: 1. Alcohol dependency. 2. Anemia. 3. Cardiomyopathy. 4. Esophageal varices. 5. GERD. 6. Diabetes mellitus. 7. CVA. PAST SURGICAL HISTORY: Esophageal banding. FAMILY HISTORY: Positive for hypertension and diabetes. REVIEW OF SYSTEMS: Cannot be obtained as the patient is not answering questions coherently. LABORATORY AND DIAGNOSTIC DATA: On 07/15/2019, potassium 5.9, creatinine 1.4, sodium 137. Ammonia 239. Hemoglobin 10.5, white cell count 8, and platelet count 134. PHYSICAL EXAMINATION: VITAL SIGNS: Blood pressure 123/50, respiratory rate 20, pulse 79, temperature 97.5, pulse oximetry 100%. GENERAL: The patient is somnolent, difficult to arouse, and coherent. HEENT: Extraocular muscles intact. No lymphadenopathy noted. CARDIOVASCULAR: S1 and S2. No rubs or gallops. PULMONARY: Upper airway rhonchi with gurgling, sounds clear. ABDOMEN: Nondistended. EXTREMITIES: A 1+ edema. ASSESSMENT AND PLAN: 1. Mild hyperkalemia at 5.9. At this time, we will recheck stat laboratory values as last BMP was from yesterday and we will treat hyperkalemia if deemed necessary. 2. Acute kidney injury secondary to mild volume intravascular depletion. We will continue IV fluids. We will monitor the patient. 3. Hematemesis with history of esophageal varices. Due to alcohol dependency, we will defer management to Gastroenterology. Juwan Angelo MD DR: Demetrius JOB#: [id number] CC:
--- NOTE | 2019-07-16 19:08 | NUR ---
HAND-OFF: Report given to Madhavi PIERSON.
--- NOTE | 2019-07-16 20:00 | NUR ---
NURSE NOTES: received report from kike rn pt obtunded does not response touch urinary output poor suction and reposition
--- NOTE | 2019-07-16 20:29 | Procedure Note ---
DATE OF PROCEDURE: 07/16/2019 SURGEON: Jj Hermosillo M.D. PROCEDURE: Upper endoscopy with banding. ANESTHESIA: Per Dr. Gallardo INSTRUMENT: Olympus adult flexible upper endoscope. REASON FOR PROCEDURE: The procedure, risks, benefits, and possible consequences, including hemorrhage, aspiration, perforation and infection, and alternative treatments, were explained to the patient/legal guardian by Dr. Jj Hermosillo and the patient/legal guardian understood and accepted these risks. INDICATION: Upper GI bleeding. DESCRIPTION OF PROCEDURE: After informed consent was obtained and the patient was adequately sedated, Olympus upper endoscope was advanced from mouth into the second portion of the duodenum and retroflexion was performed in the stomach. Patient has evidence of 3 varices in the distal esophagitis, one of them had a nipple on it, most probably the source of bleeding. In the stomach, there was some blood clot sitting in the cardia of the stomach. At this time, we started banding procedure. There was a nipple in the distal esophagus. As soon as we started banding, it actually popped open and started bleeding, but we were able successfully to place the band on it and stop the bleeding and another 2 bands were placed above it. Patient tolerated procedure well without any complications. SUMMARY OF FINDINGS: Active upper GI bleeding from esophageal varices, ruptured nipple, status post banding x3. RECOMMENDATIONS: 1. Keep NPO. 2. Keep Protonix. 3. Keep octreotide. 4. Lactulose enema. 5. Monitor hemoglobin and hematocrit. Transfuse as needed to keep hemoglobin above 7. 6. Unable to place an NG tube given active bleeding from esophageal varices. I want to thank, Dr. Mcgregor for this kind referral. Jj Hermosillo M.D. DR: ALESHA JOB#: [id number] CC: Jonny Mcgregor M.D.; Fax#: [phone]
--- NOTE | 2019-07-16 22:00 | NUR ---
NURSE NOTES: condition unchange
--- NOTE | 2019-07-16 22:00 | NUR ---
NURSE NOTES: reposition and suction
[2019-07-17] VITALS (24 sets, daily range): BP systolic 95–150; BP diastolic 48–96
--- NOTE | 2019-07-17 | NUR ---
NURSE NOTES: complete bed bath done
[2019-07-17] MEDS: Pantoprazole 80 MG in NS 250 ML IV SCH ×3 (02:17→18:28)
[2019-07-17] MEDS: Octreotide Acetate 500 MCG in Sodium Chloride 499 ML IV SCH ×2 (03:44→13:18)
[2019-07-17] MEDS: D5 1/2NS 1,000 ML IV SCH (03:44)
[2019-07-17 05:38] LABS: BASOPHILS % (AUTO) 1.9 % (0.0-2.0); HEMOGLOBIN 10.1 G/DL (12.0-16.0); LYMPHOCYTES % (AUTO) 13.3 % (20.0-45.0); MEAN CORPUSCULAR VOLUME 89 FL (80-99); MONOCYTES % (AUTO) 13.1 % (1.0-10.0); NEUTROPHILS % (AUTO) 71.6 % (45.0-75.0); PLATELET COUNT 158 K/UL (150-450); RED BLOOD COUNT 3.25 M/UL (4.20-5.40); RED CELL DISTRIBUTION WIDTH 13.4 % (11.6-14.8); WHITE BLOOD COUNT 7.3 K/UL (4.8-10.8)
[2019-07-17 05:54] LABS: INR 1.2 (0.9-1.1)
--- NOTE | 2019-07-17 06:00 | NUR ---
NURSE NOTES: bs 193 insulin given
[2019-07-17 06:08] LABS: ALANINE AMINOTRANSFERASE 18 U/L (12-78); ALBUMIN 2.6 G/DL (3.4-5.0); ALBUMIN/GLOBULIN RATIO 0.6 (1.0-2.7); ALKALINE PHOSPHATASE 72 U/L (46-116); ANION GAP 16 mmol/L (5-15); ASPARTATE AMINO TRANSFERASE 28 U/L (15-37); BILIRUBIN,TOTAL 1.1 MG/DL (0.2-1.0); BLOOD UREA NITROGEN 61 mg/dL (7-18); CALCIUM 8.9 MG/DL (8.5-10.1); CARBON DIOXIDE 17 MMOL/L (21-32); CHLORIDE 106 MMOL/L (98-107); CREATININE 1.9 MG/DL (0.55-1.30); SODIUM 139 MMOL/L (136-145)
[2019-07-17 06:21] LABS: BILIRUBIN,DIRECT 0.4 MG/DL (0.0-0.3)
--- NOTE | 2019-07-17 07:10 | NUR ---
NURSE NOTES: Received patient from KENNA Hendrickson. Patient vital sign stable with no sign of respiratory distress. Patient has copious audible secretions. Patient has multiple esophageal varices so deep nasal suction will be done cautiously as needed. Patient oral suctioned at this time. patient jaw very tight. Advancing the suction catheter into the mouth is difficult. Will continue to suction as needed. Oral secretions foamy/ac/white. Patient eyes closed. Patient does not open eyes to voice, touch, or pain stimuli. Patient on 2L nasal cannula at this time with RR 20 and SpO2 70%. Patient showing sinus tachycardia on the monitor car operator at this time. Patient NPO and Dr Hermosillo ordered for no NGT due to esophageal varices. Patient has no open wounds at this time. Patient has whiting for urine retention that is patent, asymptomatic, and draining light gorge urine at this time. Minimal output noted. MD aware. Patient has right forearm 20 gauge peripheral IV, left forearm 20 gauge peripheral IV,and right wrist 20 gauge peripheral IV that are all patent and asymptomatic. Patient has running sandostatin at 50mL/hr, D5 0.45% NS at 50mL/hr, and protonix drip at 8mg/hr. Patient bed in low position with bed alarm on and call light in reach at this time. Will continue to monitor. Oral care and repositioning done at this time.
--- NOTE | 2019-07-17 09:57 | General Progress Note ---
Assessment/Plan Problem List: (1) Cirrhosis ICD Codes: K74.60 - Unspecified cirrhosis of liver SNOMED: 23539935 (2) Esophageal varices ICD Codes: I85.00 - Esophageal varices without bleeding SNOMED: 29460659 (3) Ascites ICD Codes: R18.8 - Other ascites SNOMED: 353839518 (4) Anemia ICD Codes: D64.9 - Anemia, unspecified SNOMED: 594187818 (5) GI bleed ICD Codes: K92.2 - Gastrointestinal hemorrhage, unspecified SNOMED: 40661946 (6) Hepatic encephalopathy ICD Codes: K72.90 - Hepatic failure, unspecified without coma SNOMED: 00175143 (7) Altered level of consciousness ICD Codes: R40.4 - Transient alteration of awareness SNOMED: 3701672 Assessment/Plan: s/p EGD and banding stable H&H no recurrent bleed check ammonia level lactulose enema npo poor prognosis Subjective ROS Limited/Unobtainable: No Allergies: Coded Allergies: No Known Allergies (Unverified , 06/19/19) Objective Last 24 Hour Vital Signs Date Time Temp Pulse Resp B/P (MAP) Pulse Ox O2 Delivery O2 Flow Rate FiO2 07/17/19 06:00 105 18 128/85 (99) 100 07/17/19 05:00 111 18 130/56 (80) 98 07/17/19 04:00 97.4 108 18 128/85 (99) 100 07/17/19 04:00 Room Air 07/17/19 04:00 104 07/17/19 03:00 110 18 140/80 (100) 99 07/17/19 02:00 106 18 133/75 (94) 100 07/17/19 01:00 104 18 128/85 (99) 100 07/17/19 00:00 Room Air 07/17/19 00:00 97.6 110 18 130/65 (86) 100 07/17/19 00:00 104 07/16/19 23:00 110 18 128/85 (99) 100 07/16/19 22:00 112 18 125/75 (92) 100 07/16/19 21:00 113 20 132/65 (87) 100 07/16/19 20:00 Room Air 07/16/19 20:00 118 07/16/19 20:00 98.6 118 19 125/75 (92) 100 07/16/19 19:00 97.4 123 18 125/75 (92) 100 07/16/19 18:00 97.4 120 17 133/84 (100) 100 07/16/19 17:00 121 16 146/81 (102) 100 07/16/19 16:00 121 07/16/19 16:00 94.3 122 33 121/61 (81) 100 07/16/19 16:00 Room Air 07/16/19 15:00 75 33 130/68 (88) 100 07/16/19 14:00 76 32 130/68 (88) 100 07/16/19 13:00 97.5 75 28 130/55 (80) 100 07/16/19 12:21 81 18 96 07/16/19 12:20 80 16 99 07/16/19 12:00 Room Air 07/16/19 11:07 93 07/16/19 11:00 95 20 147/62 (90) 100 07/16/19 10:00 79 20 123/50 (74) 100 Intake and Output 07/16/19 07/17/19 19:00 07:00 Intake Total 1350 ml 1200 ml Output Total 225 ml 365 ml Balance 1125 ml 835 ml Intake Oral 0 ml 0 ml IV Total 1350 ml 1200 ml Output Urine Total 225 ml 365 ml # Bowel Movements 1 3 Laboratory Tests 07/16/19 23:35: Potassium Level 4.8 07/17/19 03:25: Potassium Level 5.0, White Blood Count 7.3, Red Blood Count 3.25L, Hemoglobin 10.1L, Hematocrit 29.0L, Mean Corpuscular Volume 89, Mean Corpuscular Hemoglobin 31.0, Mean Corpuscular Hemoglobin Concent 34.7, Red Cell Distribution Width 13.4, Platelet Count 158, Mean Platelet Volume 5.3L, Neutrophils (%) (Auto) 71.6, Lymphocytes (%) (Auto) 13.3L, Monocytes (%) (Auto) 13.1H, Eosinophils (%) (Auto) 0.0, Basophils (%) (Auto) 1.9, Prothrombin Time 12.9H, Prothromb Time International Ratio 1.2H, Sodium Level 139, Chloride Level 106, Carbon Dioxide Level 17L, Anion Gap 16H, Blood Urea Nitrogen 61H, Creatinine 1.9H, Estimat Glomerular Filtration Rate 25.5, Glucose Level 175H, Calcium Level 8.9, Total Bilirubin 1.1H, Direct Bilirubin 0.4H, Aspartate Amino Transf (AST/SGOT) 28, Alanine Aminotransferase (ALT/SGPT) 18, Alkaline Phosphatase 72, Total Protein 7.2, Albumin 2.6L, Globulin 4.6, Albumin/Globulin Ratio 0.6L Height (Feet): 5 Height (Inches): 5.00 Weight (Pounds): 146 General Appearance: lethargic EENT: normal ENT inspection Neck: supple Cardiovascular: tachycardia Respiratory/Chest: decreased breath sounds Abdomen: normal bowel sounds, non tender, soft Extremities: non-tender Jj Hermosillo MD Jul 17, 2019 09:57
--- NOTE | 2019-07-17 10:00 | NUR ---
NURSE NOTES: Dr Mcgregor rounded on the patient. Notified him that patient continues to have copious oral secretions and her breathing is labored. NO new orders received at this time. Patient showing tachycardia on the monitor. Will continue to monitor.
--- NOTE | 2019-07-17 10:58 | NUR ---
*-* INSURANCE *-* UPDATED AVAILABLE CLINICALS HAVE BEEN FAXED TO: [employer] F: [phone]
--- NOTE | 2019-07-17 11:14 | Pulmonology Progress Note ---
Assessment/Plan Assessment/Plan ASSESSMENT AND PLAN: 1. GI bleed likely due to esophageal varices, status post banding. I will defer management to Gastroenterology. 2. Acute encephalopathy due to elevated ammonia level. Continue lactulose enemas. Defer further management to Gastroenterology. 3. Anemia secondary to GI bleed. Blood transfusion if hemoglobin less than 7. 4. Diabetes mellitus. I will continue Accu-Cheks and as the patient is NPO, we will start D5 1/2 normal saline. 5. DVT prophylaxis with SCD. Jonny Mcgregor MD Subjective Interval Events: None new; s/p EGD and varices banding Constitutional: Reports: no symptoms HEENT: Repors: no symptoms Respiratory: Reports: no symptoms Cardiovascular: Reports: no symptoms Gastrointestinal/Abdominal: Reports: no symptoms Allergies: Coded Allergies: No Known Allergies (Unverified , 06/19/19) Objective Last 24 Hour Vital Signs Date Time Temp Pulse Resp B/P (MAP) Pulse Ox O2 Delivery O2 Flow Rate FiO2 07/17/19 06:00 105 18 128/85 (99) 100 07/17/19 05:00 111 18 130/56 (80) 98 07/17/19 04:00 97.4 108 18 128/85 (99) 100 07/17/19 04:00 Room Air 07/17/19 04:00 104 07/17/19 03:00 110 18 140/80 (100) 99 07/17/19 02:00 106 18 133/75 (94) 100 07/17/19 01:00 104 18 128/85 (99) 100 07/17/19 00:00 Room Air 07/17/19 00:00 97.6 110 18 130/65 (86) 100 07/17/19 00:00 104 07/16/19 23:00 110 18 128/85 (99) 100 07/16/19 22:00 112 18 125/75 (92) 100 07/16/19 21:00 113 20 132/65 (87) 100 07/16/19 20:00 Room Air 07/16/19 20:00 118 07/16/19 20:00 98.6 118 19 125/75 (92) 100 07/16/19 19:00 97.4 123 18 125/75 (92) 100 07/16/19 18:00 97.4 120 17 133/84 (100) 100 07/16/19 17:00 121 16 146/81 (102) 100 07/16/19 16:00 121 07/16/19 16:00 94.3 122 33 121/61 (81) 100 07/16/19 16:00 Room Air 07/16/19 15:00 75 33 130/68 (88) 100 07/16/19 14:00 76 32 130/68 (88) 100 07/16/19 13:00 97.5 75 28 130/55 (80) 100 07/16/19 12:21 81 18 96 07/16/19 12:20 80 16 99 07/16/19 12:00 Room Air Intake and Output 07/16/19 07/17/19 19:00 07:00 Intake Total 1350 ml 1200 ml Output Total 225 ml 365 ml Balance 1125 ml 835 ml Intake Oral 0 ml 0 ml IV Total 1350 ml 1200 ml Output Urine Total 225 ml 365 ml # Bowel Movements 1 3 General Appearance: no acute distress HEENT: normocephalic Respiratory/Chest: chest wall non-tender Cardiovascular: normal peripheral pulses Abdomen: normal bowel sounds Microbiology Date/Time Source Procedure Growth Status 07/15/19 18:00 Blood Blood Culture - Preliminary NO GROWTH AFTER 24 HOURS Resulted 07/15/19 17:45 Blood Blood Culture - Preliminary NO GROWTH AFTER 24 HOURS Resulted Laboratory Tests 07/16/19 23:35: Potassium Level 4.8 07/17/19 03:25: Potassium Level 5.0, White Blood Count 7.3, Red Blood Count 3.25L, Hemoglobin 10.1L, Hematocrit 29.0L, Mean Corpuscular Volume 89, Mean Corpuscular Hemoglobin 31.0, Mean Corpuscular Hemoglobin Concent 34.7, Red Cell Distribution Width 13.4, Platelet Count 158, Mean Platelet Volume 5.3L, Neutrophils (%) (Auto) 71.6, Lymphocytes (%) (Auto) 13.3L, Monocytes (%) (Auto) 13.1H, Eosinophils (%) (Auto) 0.0, Basophils (%) (Auto) 1.9, Prothrombin Time 12.9H, Prothromb Time International Ratio 1.2H, Sodium Level 139, Chloride Level 106, Carbon Dioxide Level 17L, Anion Gap 16H, Blood Urea Nitrogen 61H, Creatinine 1.9H, Estimat Glomerular Filtration Rate 25.5, Glucose Level 175H, Calcium Level 8.9, Total Bilirubin 1.1H, Direct Bilirubin 0.4H, Aspartate Amino Transf (AST/SGOT) 28, Alanine Aminotransferase (ALT/SGPT) 18, Alkaline Phosphatase 72, Total Protein 7.2, Albumin 2.6L, Globulin 4.6, Albumin/Globulin Ratio 0.6L 07/17/19 10:40: Ammonia [Pending] Current Medications Medications (Trade) Dose Ordered Sig/Cecelia Route PRN Reason Start Time Stop Time Status Last Admin Dose Admin Ceftriaxone Sodium 1 gm/ Dextrose 55 ml @ 110 mls/hr Q24H IVPB 07/16/19 13:00 07/23/19 12:59 07/16/19 13:04 Dextrose (Dextrose 50%) 25 ml Q30M PRN IV Hypoglycemia 07/16/19 11:00 10/14/19 10:59 Dextrose (Dextrose 50%) 50 ml Q30M PRN IV Hypoglycemia 07/16/19 11:00 10/14/19 10:59 Dextrose/Sodium Chloride 1,000 ml @ 50 mls/hr Q20H IV 07/16/19 11:00 08/15/19 10:59 07/17/19 03:44 Insulin Aspart (NovoLOG) BEFORE MEALS AND HS SUBQ 07/16/19 12:00 10/14/19 11:59 07/16/19 16:40 Lactulose 200 gm/ Sodium Chloride 1,000 ml @ 0 mls/hr Q8H RECTAL 07/17/19 11:00 07/24/19 10:59 Octreotide Acetate 500 mcg/ Sodium Chloride 500 ml @ 50 mls/hr Q10H IV 07/16/19 07:30 08/15/19 07:29 07/17/19 03:44 Pantoprazole 80 mg/Sodium Chloride 250 ml @ 25 mls/hr Q10H IV 07/16/19 12:00 08/15/19 11:59 07/17/19 08:55 Jonny Mcgregor MD Jul 17, 2019 11:14
[2019-07-17] MEDS: Lactulose 200 GM in NS Irrig 1000ml 700 ML RECTAL SCH ×2 (11:30→20:31)
--- NOTE | 2019-07-17 11:34 | Nephrology Progress Note ---
Assessment/Plan Assessment/Plan: A/P 1) CECELIA - due to volume depeltion and hypotension - Cr 1.6 - conservative management - avoid nephrotoxins - MAP >65 mmHg for adequate renal perfusion 2) Hyperkalemia- resolved 3) Encephalopathy- hepatic/alcohol - lactulose - ammonia level pending Subjective Date patient seen: Jul 17, 2019 Time patient seen: 11:29 ROS Limited/Unobtainable: Yes Allergies: Coded Allergies: No Known Allergies (Unverified , 06/19/19) Subjective Patient remains confused and disoriented Objective Last 24 Hour Vital Signs Date Time Temp Pulse Resp B/P (MAP) Pulse Ox O2 Delivery O2 Flow Rate FiO2 07/17/19 06:00 105 18 128/85 (99) 100 07/17/19 05:00 111 18 130/56 (80) 98 07/17/19 04:00 97.4 108 18 128/85 (99) 100 07/17/19 04:00 Room Air 07/17/19 04:00 104 07/17/19 03:00 110 18 140/80 (100) 99 07/17/19 02:00 106 18 133/75 (94) 100 07/17/19 01:00 104 18 128/85 (99) 100 07/17/19 00:00 Room Air 07/17/19 00:00 97.6 110 18 130/65 (86) 100 07/17/19 00:00 104 07/16/19 23:00 110 18 128/85 (99) 100 07/16/19 22:00 112 18 125/75 (92) 100 07/16/19 21:00 113 20 132/65 (87) 100 07/16/19 20:00 Room Air 07/16/19 20:00 118 07/16/19 20:00 98.6 118 19 125/75 (92) 100 07/16/19 19:00 97.4 123 18 125/75 (92) 100 07/16/19 18:00 97.4 120 17 133/84 (100) 100 07/16/19 17:00 121 16 146/81 (102) 100 07/16/19 16:00 121 07/16/19 16:00 94.3 122 33 121/61 (81) 100 07/16/19 16:00 Room Air 07/16/19 15:00 75 33 130/68 (88) 100 07/16/19 14:00 76 32 130/68 (88) 100 07/16/19 13:00 97.5 75 28 130/55 (80) 100 07/16/19 12:21 81 18 96 07/16/19 12:20 80 16 99 07/16/19 12:00 Room Air Intake and Output 07/16/19 07/17/19 19:00 07:00 Intake Total 1350 ml 1200 ml Output Total 225 ml 365 ml Balance 1125 ml 835 ml Intake Oral 0 ml 0 ml IV Total 1350 ml 1200 ml Output Urine Total 225 ml 365 ml # Bowel Movements 1 3 Laboratory Tests 07/16/19 23:35: Potassium Level 4.8 07/17/19 03:25: Potassium Level 5.0, White Blood Count 7.3, Red Blood Count 3.25L, Hemoglobin 10.1L, Hematocrit 29.0L, Mean Corpuscular Volume 89, Mean Corpuscular Hemoglobin 31.0, Mean Corpuscular Hemoglobin Concent 34.7, Red Cell Distribution Width 13.4, Platelet Count 158, Mean Platelet Volume 5.3L, Neutrophils (%) (Auto) 71.6, Lymphocytes (%) (Auto) 13.3L, Monocytes (%) (Auto) 13.1H, Eosinophils (%) (Auto) 0.0, Basophils (%) (Auto) 1.9, Prothrombin Time 12.9H, Prothromb Time International Ratio 1.2H, Sodium Level 139, Chloride Level 106, Carbon Dioxide Level 17L, Anion Gap 16H, Blood Urea Nitrogen 61H, Creatinine 1.9H, Estimat Glomerular Filtration Rate 25.5, Glucose Level 175H, Calcium Level 8.9, Total Bilirubin 1.1H, Direct Bilirubin 0.4H, Aspartate Amino Transf (AST/SGOT) 28, Alanine Aminotransferase (ALT/SGPT) 18, Alkaline Phosphatase 72, Total Protein 7.2, Albumin 2.6L, Globulin 4.6, Albumin/Globulin Ratio 0.6L 07/17/19 10:40: Ammonia [Pending] Height (Feet): 5 Height (Inches): 5.00 Weight (Pounds): 146 General Appearance: lethargic, confused EENT: normal ENT inspection Neck: normal alignment Cardiovascular: normal rate, regular rhythm Respiratory/Chest: crackles/rales, rhonchi - bilaterally Abdomen: non tender, soft Edema: no edema noted Arm (L), no edema noted Arm (R), no edema noted Leg (L), no edema noted Leg (R), no edema noted Pedal (L), no edema noted Pedal (R), no edema noted Generalized Juwan Angelo MD Jul 17, 2019 11:34
--- NOTE | 2019-07-17 12:00 | NUR ---
NURSE NOTES: Patient having increasingly labored breathing. Secretions audible in patient airway. Patient deep nasal suctioned at this time. Unable to orally suction as patient's jaw is tightly shut and difficult to open. Patient eyes closed and does not open eyes to voice, touch, or pain stimuli. Patient remains on 2L nasal cannula at this time with RR 20 and SpO2 98%. Patient showing sinus tachycardia on the quality assurance monitor final. Patient NPO. Silva patent, asymptomatic, and draining dark gorge urine at this time. Right forearm 20 gauge peripheral IV, left forearm 20 gauge peripheral IV,and right wrist 20 gauge peripheral IV all patent and asymptomatic. Patient has running sandostatin at 50mL/hr, D5 0.45% NS at 50mL/hr, and protonix drip at 8mg/hr. Bed in low position with bed alarm on and call light in reach at this time. Will continue to monitor. Oral care and repositioning done at this time.
[2019-07-17] MEDS: NovoLOG Insulin Flexpen SUBQ SCH ×3 (12:15→20:39)
--- NOTE | 2019-07-17 12:15 | NUR ---
NURSE NOTES: NovoLOG given at 1215 for 1130 dose. 2 units given for blood sugar 172.
--- NOTE | 2019-07-17 12:40 | NUR ---
CASE MANAGEMENT: REVIEW 07/17/2019 SI:S/P EGD WITH BANDING AMS. ENCEPHALOPATHY. UTI . GI BLEED 97.4 104 18 128/85 100% ON RA H/H 10.1/29.0 BUN 61 CREAT 1.9 BG 175 ALKP 301 ALBUMIN 2.6 PT/INR 12.9/1.2 IS:CEFTRIAXONE IV Q24H PROTONIX IV @ 25 ML/HR OCTREOTIDE 50 ML/HR D5/NS @ 50 ML/HR LACTULOSE REC Q8H INSULIN ASPART SUBQ AC/HS LACTULOSE REC X1 \: INTENSIVE CARE UNIT DCP: PLAN: BLOOD TRANSFUSION X1 07/16/19 KEEP NPO
[2019-07-17] MEDS: cefTRIAXone 1 GM in D5W 55 ML IVPB SCH (13:18)
--- NOTE | 2019-07-17 14:42 | NUR ---
NURSE NOTES: At 1230 Patient had seizure like activity with facial twitching, desaturation to 89% SpO2. NO muscle rigidity of the arms and legs noted. At 1400 patient had another episode of facial twitching/seizure like activity with desaturation as low as 75%. When patient turned to her side to protect her airway, bright red blood noted coming from her mouth, about 10mL total. Notified Dr Mcgregor via telephone call regarding these occurrences. Received order for Keppra 500mg IVPB BID. Order read back, verified, and placed. Also notified Dr Mcgregor that patient continues to have labored breathing with copious oral secretions. Left message for Dr Hermosillo regarding the bright red blood noted coming from the patient's mouth during the second seizure episode. Awaiting call back.
--- NOTE | 2019-07-17 15:16 | NUR ---
NURSE NOTES: Called Dr Mcgregor and notified him that patient continues to have labored breathing. Received order for ABG. order read back, verified, and placed.
[2019-07-17] MEDS: levETIRAcetam 500mg/NS100ml 100 ML IVPB SCH (15:37)
--- NOTE | 2019-07-17 15:44 | NUR ---
NURSE NOTES: While obtaining ABG, patient had a tonic clonic seizure lasting 3 minutes. Patient saturation dropped to 83%. Patient placed on 100% non-rebreather for a few minutes and then patient placed on 4L venturi mask. SpO2 now 97%. Will continue to monitor.
--- NOTE | 2019-07-17 15:54 | NUR ---
NURSE NOTES: Reported ABG result to Dr Mcgregor via telephone call. Received order for endotracheal intubation and 1 amp Bicarb post intubation.
[2019-07-17] MEDS ORDERED: Sodium Bicarbonate 50ml Carp IV SCH (16:00)
--- NOTE | 2019-07-17 16:30 | NUR ---
RESPIRATORY NOTE: Intubated at 1615 per Er. , secured by anchor fast at 21cm lips line. Placed pt on vent with the settings: AC 20-450ml-40%FiO2- peep 5. KENNA Garay at bedside. Pt is tolerating well. No SOB or resp distress noted. ABG in 30 mins. Will continue to monitor pt.
--- NOTE | 2019-07-17 16:46 | NUR ---
NURSE NOTES: Patient niece, Jolene Yepez, notified via telephone call that patient intubated due to increased work of breathing and poor ABG values.
--- NOTE | 2019-07-17 16:53 | Diagnostic Imaging Report ---
Indication: Status post endotracheal tube placement Technique: One view of the chest Comparison: 06/19/2019 Findings: Interim endotracheal intubation, endotracheal tube tip projecting approximately 2 cm above the amaya. Patchy parenchymal opacities are seen at the right lung base and questionably in the retrocardiac region. The left lateral costophrenic angle is blunted, may reflect a small amount of pleural fluid. The heart is borderline enlarged with a left ventricular hypertrophy configuration. The aorta is tortuous and calcified. Chronic changes of the right shoulder are noted. Impression: Satisfactory endotracheal intubation Patchy right basilar and possible retrocardiac opacities, nonspecific, could represent areas of infiltrate Borderline cardiomegaly Possible small left pleural effusion
--- NOTE | 2019-07-17 17:37 | NUR ---
NURSE NOTES: Patient intubated at 1615. ET tube verified with chest x-ray. ABG obtained. ET tube 7.5 with 21cm at the lip line. Ventilator setting AC 20, tidal volume 450, FiO2 40%, and PEEP 5. Patient tolerating with RR 20 and SpO2 99%. Left message for Dr Mcgregor to report ABG result at 1730. Awaiting call back.
--- NOTE | 2019-07-17 18:54 | NUR ---
NURSE NOTES: When cleaning patient, noted bleeding from IV sites, rectum, nose, and mouth. Called and notified Dr Hermosillo. Received order for stat CBC. Order read back, verified, and placed. Will follow up with result.
--- NOTE | 2019-07-17 19:00 | NUR ---
NURSE NOTES: Called and notified Dr Mcgregor regarding bleeding noted at IV site, nose, mouth, and rectum. Also reported post intubation ABG. Received order for ABG, chest x-ray, CBC, and BMP for tomorrow AM 0400. Orders read back and verified at this time. Also notified him that the family had some questions about changing code status and the patient's current condition. He reported that he would call the nieceJolene, and answer the family's questions.
--- NOTE | 2019-07-17 19:15 | NUR ---
HAND-OFF: Report given to KENNA Bolton. Endorsed to monitor and notify Dr Hermosillo regarding stat CBC result.
--- NOTE | 2019-07-17 19:18 | Emergency Room Report ---
Physical Exam Vital Signs Date Time Temp Pulse Resp B/P (MAP) Pulse Ox O2 Delivery O2 Flow Rate FiO2 07/15/19 17:19 97.5 85 20 123/64 (83) 97 Room Air 07/17/19 07:50 2.0 28 Medical Decision Making Diagnostic Impression: Primary Impression: Altered level of consciousness Additional Impressions: GI bleed Esophageal varices Hepatic encephalopathy ER Course Called to patient bedside in the ICU for intubation due to increased work of breathing and respiratory distress. Patient found tachypneic and in moderate respiratory distress. She was intubated on first attempt using a glide scope with a 7.5 endotracheal tube. Tube was secured with equal bilateral breath sounds, misting in tube and improvement in oxygenation. Chest x-ray confirms appropriate placement of endotracheal tube. Further care per ICU team. Recall as needed. Last Vital Signs Date Time Temp Pulse Resp B/P (MAP) Pulse Ox O2 Delivery O2 Flow Rate FiO2 07/17/19 19:03 123 22 100 07/17/19 16:15 98 Mechanical Ventilator 07/17/19 16:00 114/63 (80) 07/17/19 07:50 2.0 07/17/19 04:00 97.4 Disposition: ADMITTED INPATIENT Condition: Critical Referrals: NON PHYSICIAN (PCP) Procedures Intubation Intubation : Consent: Emergent Intubation Method: orotracheal Tube Size (cm): 7.5 Medications: Etomidate, Rocuronium Breath Sounds after Intubation: equal Intubation Complications: no complications Post Intubation Xray: Yes Progress/Xray Impression: Endotracheal tube in appropriate position above the amaya. Attempts: One Patient Tolerated: Well Complications: None Sriram Guillen MD Jul 17, 2019 19:18
--- NOTE | 2019-07-17 19:47 | NUR ---
NURSE NOTES: PATIENT HAD FOCAL SZ 90 SECS AT 1944PM THAT CALLED CRISTIANA LIGHT MD, NO NEW ORDER STATUS.
--- NOTE | 2019-07-17 19:50 | NUR ---
NURSE NOTES: PATIENT NO RESPONSE TO VERBAL AND TACTILE STIMULI, ON ETT TO VENT, AC20/TV450/FIO2 100%/PEEP5, O2 SATURATION 100% NOTED, HEART RATE 120'S/MIN ST, ABDOMEN DISTENDED, RECTAL TUBE INTACT AND PATENT, F/C INTACT AND PATENT, PPL TO BOTH FA 20G AND RIGHT AC 20G, INTACT AND PATENT, ONGOING PROTONIX 25ML/HR, SANDOSTATIN 50ML/HR AND IV FLUID D5W 1/2NS AT 50ML/HR VIA PPL, MADE LOWER BED POSITION, ON BED ALARM AND LOCKED, KEPT SZ AND ASPIRATION PRECAUTION, PLACED CALL LIGHT WITHIN REACH, WILL CONTINUE TO MONITOR.
[2019-07-17 19:57] LABS: BASOPHILS % (AUTO) 2.2 % (0.0-2.0); HEMATOCRIT 29.4 % (37.0-47.0); HEMOGLOBIN 9.2 G/DL (12.0-16.0); LYMPHOCYTES % (AUTO) 7.3 % (20.0-45.0); MEAN CORPUSCULAR VOLUME 97 FL (80-99); MONOCYTES % (AUTO) 15.5 % (1.0-10.0); PLATELET COUNT 135 K/UL (150-450); RED BLOOD COUNT 3.05 M/UL (4.20-5.40); RED CELL DISTRIBUTION WIDTH 14.9 % (11.6-14.8); WHITE BLOOD COUNT 7.7 K/UL (4.8-10.8)
--- NOTE | 2019-07-17 20:06 | NUR ---
NURSE NOTES: HGB 9.[address] VELASCO, LEFT MESSAGE.
--- NOTE | 2019-07-17 21:57 | NUR ---
NURSE NOTES: PATIENT NO RESPONSE STATUS, O2 SATURATION 100% NO ETT TO VENT, NO SZ NOTED AT THIS TIME.
--- NOTE | 2019-07-17 23:25 | NUR ---
NURSE NOTES: SUCTIONED COPIOUS WHITISH DISCHARGE OUTED FROM MOUTH, HOB 30 DEGREES, OCCASIONALLY TWITCHING STATUS, WILL CONTINUE TO MONITOR.
[2019-07-18] VITALS (65 sets, daily range): BP systolic 44–157; BP diastolic 21–125
[2019-07-18] MEDS: Octreotide Acetate 500 MCG in Sodium Chloride 499 ML IV SCH ×3 (00:23→19:52)
[2019-07-18] MEDS: D5 1/2NS 1,000 ML IV SCH (00:24)
--- NOTE | 2019-07-18 02:00 | NUR ---
NURSE NOTES: REPOSITIONED, TWITCHING ON AND OFF STATUS.
--- NOTE | 2019-07-18 03:30 | Consultation ---
DATE OF CONSULTATION: 07/17/2019 CONSULTING PHYSICIAN: Haroon Pimentel M.D. REQUESTING PHYSICIAN: Dr. Jonny Mcgregor. REASON FOR CONSULTATION: Supraventricular tachyarrhythmias. HISTORY OF PRESENT ILLNESS: This 78-year-old female was admitted to the hospital after noted to be vomiting blood on 07/15/2019. She has a history of esophageal varices and banding in the past with portal hypertension. She was noted to have an elevated ammonia level and admitted to the intensive care unit. Today, she developed rapid atrial fibrillation. I have been asked to address care. Upon my initial evaluation, the patient was noted to also be in respiratory distress. An ABG had already been requested by staff. Results were notable for pH 7.11, pCO2 47, and pO2 148. EKG reveals atrial fibrillation with rapid ventricular response and nonspecific ST-T wave changes. PAST MEDICAL HISTORY: Notable for alcoholism, esophageal varices, gastroesophageal reflux disease, type 2 diabetes mellitus, cerebrovascular disease with history of CVA, alcoholic cardiomyopathy, chronic anemia, and history of esophageal banding. FAMILY HISTORY: Notable for diabetes. SOCIAL HISTORY: Notable for alcoholism. No smoking or substance abuse per records. REVIEW OF SYSTEMS: Not obtainable. PHYSICAL EXAMINATION: VITAL SIGNS: Blood pressure 124/55, pulse 141, respirations 22, and afebrile. LUNGS: Accessary muscle use. Paradoxical respirations. Diminished breath sounds. CARDIAC: Irregularly irregular rhythm with rapid ventricular rate. ABDOMEN: Distended with some ascites. EXTREMITIES: 1+ edema. LABORATORY DATA: Labs today were notable for potassium of 5, BUN 61, creatinine 1.9, bicarbonate 17, ammonia of 300, and albumin of 2.6. White count 7.7, hemoglobin 9.2, and platelets 135,000. IMPRESSION: 1. Respiratory failure. 2. Metabolic acidosis. 3. Atrial fibrillation with rapid ventricular response. 4. Alcoholic cardiomyopathy and alcoholic liver disease. 5. Hepatic encephalopathy. RECOMMENDATION: 1. Intubation with mechanical ventilation has already been initiated. 2. Cardizem intravenous for rate control. 3. Lactulose by NG tube. 4. Monitor hemoglobin. 5. Maintenance hydration. 6. Check vitamin parameters and magnesium level. 7. Follow up troponin level. 8. Condition is now critical with guarded prognosis. Haroon Pimentel M.D. DR: HOWARD JOB#: [id number] CC:
[2019-07-18] MEDS: levETIRAcetam 500mg/NS100ml 100 ML IVPB SCH ×2 (03:33→17:06)
[2019-07-18] MEDS: Lactulose 200 GM in NS Irrig 1000ml 700 ML RECTAL SCH ×3 (03:33→19:52)
[2019-07-18] MEDS: Pantoprazole 80 MG in NS 250 ML IV SCH ×3 (03:33→23:43)
--- NOTE | 2019-07-18 04:32 | NUR ---
NURSE NOTES: MORNING CARE AND ORAL CARE WA DONE.
--- NOTE | 2019-07-18 05:00 | NUR ---
NURSE NOTES: CALLED DR. GUTIÉRREZ REGARDING LOWER BP THAT RECEIVED NEW ORDER.
[2019-07-18] MEDS ORDERED: Levophed 4mg/4mL Inj IV ONE (05:04)
--- NOTE | 2019-07-18 05:05 | NUR ---
NURSE NOTES: Called Marcelle Contreras patient Niece at this time. Notified her in Tajik,patient is in critical condition, her BP is very low. We will be starting her on Levophed for her low BP. Asked her if patients heart was to stop do they want CPR to be performed. She said no. explained to her that patient is currently a full code at this time. stated she wants code status to be changed. She agreed for patient code status to be changed to DNR.
--- NOTE | 2019-07-18 05:12 | NUR ---
NURSE NOTES: Called MD Pressley at this time. Notified him that I spoke with patients decision maker Marcelle Contreras. She wished to make her aunt DNR at this time. MD Mcgregor agreed. Order received and read back.
[2019-07-18] MEDS: Norepinephrine Bitartrate 8 MG in D5W 500ml 492 ML IV SCH (05:20)
--- NOTE | 2019-07-18 05:20 | NUR ---
NURSE NOTES: STARTED LEVOPHED DRIP 2MCG/MIN VIA RIGHT FA PPL ORDER, WILL CONTINUE TO MONITOR. Addendum: 07/18/19 at 0537 by TAYLOR LEIGH RN NURSE NOTES: STARTED LEVOPHED DRIP 6MCG/MIN VIA RIGHT FA PPL ORDER, WILL CONTINUE TO MONITOR
[2019-07-18] MEDS: NovoLOG Insulin Flexpen SUBQ SCH ×4 (06:10→21:04)
--- NOTE | 2019-07-18 06:44 | NUR ---
NURSE NOTES: HOLD LEVOPHED DRIP AT THIS TIME DUE TO BP 120/102MMHG, WILL CONTINUE TO MONITOR.
--- NOTE | 2019-07-18 06:50 | NUR ---
NURSE NOTES: BP 50/28MMHG NOTED, RESTARTED LEVOPHED DRIP 2MCG/MIN, WILL CONTINUE TO MONITOR.
[2019-07-18 06:59] LABS: HEMATOCRIT 22.6 % (37.0-47.0); HEMOGLOBIN 7.4 G/DL (12.0-16.0); MEAN CORPUSCULAR VOLUME 97 FL (80-99); PLATELET COUNT 127 K/UL (150-450); RED BLOOD COUNT 2.35 M/UL (4.20-5.40); RED CELL DISTRIBUTION WIDTH 14.6 % (11.6-14.8)
--- NOTE | 2019-07-18 07:08 | General Progress Note ---
Assessment/Plan Problem List: (1) Cirrhosis ICD Codes: K74.60 - Unspecified cirrhosis of liver SNOMED: 83485945 (2) Esophageal varices ICD Codes: I85.00 - Esophageal varices without bleeding SNOMED: 58687883 (3) Ascites ICD Codes: R18.8 - Other ascites SNOMED: 946151745 (4) Anemia ICD Codes: D64.9 - Anemia, unspecified SNOMED: 843076472 (5) GI bleed ICD Codes: K92.2 - Gastrointestinal hemorrhage, unspecified SNOMED: 64563309 (6) Hepatic encephalopathy ICD Codes: K72.90 - Hepatic failure, unspecified without coma SNOMED: 23315184 (7) Altered level of consciousness ICD Codes: R40.4 - Transient alteration of awareness SNOMED: 4857084 Assessment/Plan: s/p EGD and banding stable H&H intubated yesterday DNR now check ammonia level lactulose enema npo poor prognosis Subjective ROS Limited/Unobtainable: No Allergies: Coded Allergies: No Known Allergies (Unverified , 06/19/19) Objective Last 24 Hour Vital Signs Date Time Temp Pulse Resp B/P (MAP) Pulse Ox O2 Delivery O2 Flow Rate FiO2 07/18/19 06:15 116 27 141/109 (120) 89 07/18/19 06:00 103 30 88/37 (54) 91 07/18/19 06:00 88/37 07/18/19 05:45 102 23 110/62 (78) 93 07/18/19 05:30 104 27 117/100 (106) 92 07/18/19 05:30 117/100 07/18/19 05:20 92/64 07/18/19 05:15 100 37 60/33 (42) 92 07/18/19 05:08 65 23 54/27 (36) 100 07/18/19 05:00 77 20 100 07/18/19 05:00 77 32 49/27 (34) 100 07/18/19 04:56 78 26 47/30 (36) 96 07/18/19 04:54 79 37 45/29 (34) 85 07/18/19 04:49 80 34 44/27 (33) 86 07/18/19 04:45 80 30 45/28 (34) 93 07/18/19 04:30 84 29 80/58 (65) 91 07/18/19 04:27 84 27 92/64 (73) 86 07/18/19 04:15 93 27 54/21 (32) 91 07/18/19 04:04 91 30 65/35 (45) 90 07/18/19 04:00 99.0 91 35 150/76 (100) 92 07/18/19 04:00 Mechanical Ventilator 07/18/19 04:00 91 07/18/19 03:44 93 29 154/125 (135) 89 07/18/19 03:15 112 30 157/124 (135) 87 07/18/19 03:14 108 26 100 07/18/19 03:00 104 36 132/108 (116) 95 07/18/19 02:30 120 36 118/78 (91) 84 07/18/19 02:15 124 35 131/54 (79) 89 07/18/19 02:00 122 27 143/71 (95) 81 07/18/19 01:02 115 34 90/68 (75) 97 07/18/19 01:00 95 35 57/44 (48) 94 07/18/19 00:31 115 32 103/63 (76) 92 07/18/19 00:00 120 07/18/19 00:00 98.4 120 26 86/43 (57) 93 07/18/19 00:00 Mechanical Ventilator 07/17/19 23:00 118 35 95/49 (64) 93 07/17/19 22:45 130 25 100 07/17/19 22:00 120 27 107/85 (92) 100 07/17/19 21:00 120 23 103/48 (66) 100 07/17/19 20:00 121 07/17/19 20:00 98.5 121 21 106/50 (68) 100 07/17/19 20:00 Mechanical Ventilator 07/17/19 19:03 123 22 100 07/17/19 19:00 123 23 111/62 (78) 07/17/19 18:00 130 26 110/50 (70) 80 07/17/19 17:00 98.6 141 22 124/55 (78) 99 07/17/19 16:30 143 20 40 07/17/19 16:15 143 20 98 Mechanical Ventilator 40 07/17/19 16:00 124 31 114/63 (80) 98 07/17/19 16:00 Room Air 07/17/19 16:00 144 07/17/19 15:59 125 07/17/19 15:00 125 33 110/50 (70) 98 07/17/19 14:00 117 26 129/60 (83) 100 07/17/19 13:00 117 26 128/96 (107) 100 07/17/19 12:00 97.7 07/17/19 12:00 115 25 136/64 (88) 99 07/17/19 12:00 115 07/17/19 12:00 Room Air 07/17/19 11:00 114 25 137/59 (85) 99 07/17/19 10:00 113 29 102/61 (75) 100 07/17/19 09:00 108 23 144/54 (84) 100 07/17/19 08:00 107 23 150/58 (88) 100 07/17/19 08:00 106 07/17/19 08:00 97.6 07/17/19 08:00 Room Air 07/17/19 07:50 100 Nasal Cannula 2.0 28 Intake and Output 07/17/19 07/18/19 19:00 07:00 Intake Total 1642.5 ml 5432.5 ml Output Total 435 ml 2145 ml Balance 1207.5 ml 3287.5 ml Intake Oral 0 ml 0 ml IV Total 1642.5 ml 3432.5 ml Other 2000 ml Output Urine Total 435 ml 195 ml Stool Total 1950 ml # Bowel Movements 1 Laboratory Tests 07/17/19 10:40: Ammonia 301H 07/17/19 15:30: Arterial Blood pH 7.113*L, Arterial Blood Partial Pressure CO2 47.1H, Arterial Blood Partial Pressure O2 148.4H, Arterial Blood HCO3 14.7*L, Arterial Blood Oxygen Saturation 97.8, Arterial Blood Base Excess -14.1*L, Len Test Positive 07/17/19 17:15: Arterial Blood pH 7.336L, Arterial Blood Partial Pressure CO2 34.6L, Arterial Blood Partial Pressure O2 97.6, Arterial Blood HCO3 18.1L, Arterial Blood Oxygen Saturation , Arterial Blood Base Excess -6.8L, Len Test Positive 07/17/19 19:35: White Blood Count 7.7, Red Blood Count 3.05L, Hemoglobin 9.2L, Hematocrit 29.4L , Mean Corpuscular Volume 97#, Mean Corpuscular Hemoglobin 30.3, Mean Corpuscular Hemoglobin Concent 31.3L, Red Cell Distribution Width 14.9H, Platelet Count 135L, Mean Platelet Volume 6.1L, Neutrophils (%) (Auto) 75.0, Lymphocytes (%) (Auto) 7.3L, Monocytes (%) (Auto) 15.5H, Eosinophils (%) (Auto) 0.0, Basophils (%) (Auto) 2.2H 07/18/19 04:43: White Blood Count [Pending], Red Blood Count [Pending], Hemoglobin [Pending], Hematocrit [Pending], Mean Corpuscular Volume [Pending], Mean Corpuscular Hemoglobin [Pending], Mean Corpuscular Hemoglobin Concent [Pending], Red Cell Distribution Width [Pending], Platelet Count [Pending], Mean Platelet Volume [ Pending], Neutrophils (%) (Auto) [Pending], Lymphocytes (%) (Auto) [Pending], Monocytes (%) (Auto) [Pending], Eosinophils (%) (Auto) [Pending], Basophils (%) (Auto) [Pending], Prothrombin Time [Pending], Prothromb Time International Ratio [Pending], Sodium Level [Pending], Potassium Level [Pending], Chloride Level [Pending], Carbon Dioxide Level [Pending], Blood Urea Nitrogen [Pending], Creatinine [Pending], Estimat Glomerular Filtration Rate [Pending], Glucose Level [Pending], Calcium Level [Pending], Total Bilirubin [Pending], Aspartate Amino Transf (AST/SGOT) [Pending], Alanine Aminotransferase (ALT/SGPT) [Pending] , Alkaline Phosphatase [Pending], Ammonia [Pending], Troponin I [Pending], Pro-B -Type Natriuretic Peptide [Pending], Total Protein [Pending], Albumin [Pending] , Globulin [Pending] Height (Feet): 5 Height (Inches): 5.00 Weight (Pounds): 148 General Appearance: lethargic EENT: normal ENT inspection Neck: supple Cardiovascular: normal rate Respiratory/Chest: decreased breath sounds Abdomen: normal bowel sounds, non tender, soft Extremities: non-tender Vosoghi,Jj MD Jul 18, 2019 07:08
[2019-07-18 07:18] LABS: INR 1.5 (0.9-1.1)
--- NOTE | 2019-07-18 07:23 | NUR ---
HAND-OFF: Report given to KENNA STYLES.
--- NOTE | 2019-07-18 07:24 | NUR ---
NURSE NOTES: Report received from Hoang Mott RN. Pt is comatose. Bilateral pupils +4 dilated. Sinus rhythm with 1 AVB on front desk monitor. Large amount of clear oral secretion noted. ETT 7.5/21cm at lip line. AC 20, TV 450, FiO2 100%. P 5. O2 sat 90-98%. Temp 100.2 orally. Initiated cooling measures. Kept NPO as ordered. Rectal tube and whiting in place draining to gravity. IV to right FA G20, right hand G20, and left hand G20 patent and asymptomatic. Pt is on Protonix at 25cc/hr, Sandostatin at 50cc/hr, D51/2NS at 50cc/hr, and Levophed at 2mcg/min. Bed in lowest position. Side rails up x3. Will resume plan of care.
[2019-07-18 07:25] LABS: ALANINE AMINOTRANSFERASE 16 U/L (12-78); ALBUMIN 1.8 G/DL (3.4-5.0); ALBUMIN/GLOBULIN RATIO 0.5 (1.0-2.7); ALKALINE PHOSPHATASE 56 U/L (46-116); ANION GAP 18 mmol/L (5-15); ASPARTATE AMINO TRANSFERASE 28 U/L (15-37); BILIRUBIN,TOTAL 0.5 MG/DL (0.2-1.0); BLOOD UREA NITROGEN 71 mg/dL (7-18); CALCIUM 7.8 MG/DL (8.5-10.1); CARBON DIOXIDE 16 MMOL/L (21-32); CHLORIDE 114 MMOL/L (98-107); CREATININE 2.5 MG/DL (0.55-1.30); POTASSIUM 5.4 MMOL/L (3.5-5.1); SODIUM 148 MMOL/L (136-145)
[2019-07-18 07:50] LABS: AMMONIA 1348 umol/L (11-32)
--- NOTE | 2019-07-18 08:59 | Diagnostic Imaging Report ---
EXAM: XR Chest, 1 View CLINICAL HISTORY: SOB TECHNIQUE: Frontal view of the chest. COMPARISON: 07/17/19 FINDINGS: Lungs: There has been no significant change of patchy bilateral lower lobe infiltrates. There is been development of mild right upper lobe infiltrate as well. The findings are consistent with pneumonia. Pleural space: There are probable small bilateral pleural effusions. No pneumothorax. Heart: Unremarkable. No cardiomegaly. Mediastinum: Unremarkable. Bones/joints: Unremarkable. Tubes, lines and devices: There is an endotracheal tube in good position. IMPRESSION: There has been no significant change of patchy bilateral lower lobe infiltrates. There is been development of mild right upper lobe infiltrate as well. The findings are consistent with pneumonia.
--- NOTE | 2019-07-18 10:43 | NUR ---
NURSE NOTES: O2 sat 88-92% on FiO2 100%. BP 50's. Pt still has fever. Will continue cooling measures. HR 90's, SR with 1 AVB. Will continue to monitor.
--- NOTE | 2019-07-18 11:16 | NUR ---
NURSE NOTES: Dr Pressley here to see the patient. Notified him regarding pt's current condition regarding abnormal labs. No new orders. Dr Mcgregor spoke with the niece, Jolene on the phone updating pt's current condition. Temp 99.8 orally. Order to cancel ABG received, noted, and notified RT.
--- NOTE | 2019-07-18 11:17 | Nephrology Progress Note ---
Assessment/Plan Assessment/Plan: A/P 1) CECELIA - due to volume depeltion and hypotension - Cr worsened due to hypotension - will fluid bolus and continue IV pressor support - avoid nephrotoxins - MAP >65 mmHg for adequate renal perfusion - poor prognosis will try to avoid [employer] 2) Hyperkalemia- mild due to GI bleed and RI - fluid bolus for kaleuresis 3) Encephalopathy- hepatic/alcohol - lactulose - ammonia level monitored Poor overall prognosis with high level of mortality Subjective Date patient seen: Jul 18, 2019 Time patient seen: 11:14 ROS Limited/Unobtainable: Yes Allergies: Coded Allergies: No Known Allergies (Unverified , 06/19/19) Subjective Patient now intubated on IV pressor support Objective Last 24 Hour Vital Signs Date Time Temp Pulse Resp B/P (MAP) Pulse Ox O2 Delivery O2 Flow Rate FiO2 07/18/19 11:09 98 20 100 07/18/19 11:00 99 30 52/27 (35) 100 07/18/19 10:30 98 34 51/28 (36) 85 07/18/19 10:00 93 32 51/26 (34) 86 07/18/19 09:30 91 34 50/26 (34) 84 07/18/19 09:05 73 20 100 07/18/19 09:00 97 32 48/25 (33) 88 07/18/19 09:00 48/25 07/18/19 08:30 96 17 53/25 (34) 85 07/18/19 08:21 98 07/18/19 08:00 Mechanical Ventilator 07/18/19 08:00 93 24 50/26 (34) 86 07/18/19 08:00 50/25 07/18/19 07:30 100.2 72 25 47/25 (32) 91 07/18/19 07:20 72 20 100 07/18/19 07:00 94 25 50/27 (35) 97 07/18/19 06:30 101 22 120/102 (108) 88 07/18/19 06:15 116 27 141/109 (120) 89 07/18/19 06:00 103 30 88/37 (54) 91 07/18/19 06:00 88/37 07/18/19 05:45 102 23 110/62 (78) 93 07/18/19 05:30 104 27 117/100 (106) 92 07/18/19 05:30 117/100 07/18/19 05:20 92/64 07/18/19 05:15 100 37 60/33 (42) 92 07/18/19 05:08 65 23 54/27 (36) 100 07/18/19 05:00 77 20 100 07/18/19 05:00 77 32 49/27 (34) 100 07/18/19 04:56 78 26 47/30 (36) 96 07/18/19 04:54 79 37 45/29 (34) 85 07/18/19 04:49 80 34 44/27 (33) 86 07/18/19 04:45 80 30 45/28 (34) 93 07/18/19 04:30 84 29 80/58 (65) 91 07/18/19 04:27 84 27 92/64 (73) 86 07/18/19 04:15 93 27 54/21 (32) 91 07/18/19 04:04 91 30 65/35 (45) 90 07/18/19 04:00 99.0 91 35 150/76 (100) 92 07/18/19 04:00 Mechanical Ventilator 07/18/19 04:00 91 07/18/19 03:44 93 29 154/125 (135) 89 07/18/19 03:15 112 30 157/124 (135) 87 07/18/19 03:14 108 26 100 07/18/19 03:00 104 36 132/108 (116) 95 07/18/19 02:30 120 36 118/78 (91) 84 07/18/19 02:15 124 35 131/54 (79) 89 07/18/19 02:00 122 27 143/71 (95) 81 07/18/19 01:02 115 34 90/68 (75) 97 07/18/19 01:00 95 35 57/44 (48) 94 07/18/19 00:31 115 32 103/63 (76) 92 07/18/19 00:00 120 07/18/19 00:00 98.4 120 26 86/43 (57) 93 07/18/19 00:00 Mechanical Ventilator 07/17/19 23:00 118 35 95/49 (64) 93 07/17/19 22:45 130 25 100 07/17/19 22:00 120 27 107/85 (92) 100 07/17/19 21:00 120 23 103/48 (66) 100 07/17/19 20:00 121 07/17/19 20:00 98.5 121 21 106/50 (68) 100 07/17/19 20:00 Mechanical Ventilator 07/17/19 19:03 123 22 100 07/17/19 19:00 123 23 111/62 (78) 07/17/19 18:00 130 26 110/50 (70) 80 07/17/19 17:00 98.6 141 22 124/55 (78) 99 07/17/19 16:30 143 20 40 07/17/19 16:15 143 20 98 Mechanical Ventilator 40 07/17/19 16:00 124 31 114/63 (80) 98 07/17/19 16:00 Room Air 07/17/19 16:00 144 07/17/19 15:59 125 07/17/19 15:00 125 33 110/50 (70) 98 07/17/19 14:00 117 26 129/60 (83) 100 07/17/19 13:00 117 26 128/96 (107) 100 07/17/19 12:00 97.7 07/17/19 12:00 115 25 136/64 (88) 99 07/17/19 12:00 115 07/17/19 12:00 Room Air Intake and Output 07/17/19 07/18/19 19:00 07:00 Intake Total 1642.5 ml 5564.5 ml Output Total 435 ml 2145 ml Balance 1207.5 ml 3419.5 ml Intake Oral 0 ml 0 ml IV Total 1642.5 ml 3564.5 ml Other 2000 ml Output Urine Total 435 ml 195 ml Stool Total 1950 ml # Bowel Movements 1 Laboratory Tests 07/17/19 15:30: Arterial Blood pH 7.113*L, Arterial Blood Partial Pressure CO2 47.1H, Arterial Blood Partial Pressure O2 148.4H, Arterial Blood HCO3 14.7*L, Arterial Blood Oxygen Saturation 97.8, Arterial Blood Base Excess -14.1*L, Len Test Positive 07/17/19 17:15: Arterial Blood pH 7.336L, Arterial Blood Partial Pressure CO2 34.6L, Arterial Blood Partial Pressure O2 97.6, Arterial Blood HCO3 18.1L, Arterial Blood Oxygen Saturation , Arterial Blood Base Excess -6.8L, Len Test Positive 07/17/19 19:35: White Blood Count 7.7, Red Blood Count 3.05L, Hemoglobin 9.2L, Hematocrit 29.4L , Mean Corpuscular Volume 97#, Mean Corpuscular Hemoglobin 30.3, Mean Corpuscular Hemoglobin Concent 31.3L, Red Cell Distribution Width 14.9H, Platelet Count 135L, Mean Platelet Volume 6.1L, Neutrophils (%) (Auto) 75.0, Lymphocytes (%) (Auto) 7.3L, Monocytes (%) (Auto) 15.5H, Eosinophils (%) (Auto) 0.0, Basophils (%) (Auto) 2.2H 07/18/19 04:43: White Blood Count 6.0, Red Blood Count 2.35L, Hemoglobin 7.4L, Hematocrit 22.6L , Mean Corpuscular Volume 97, Mean Corpuscular Hemoglobin 31.6H, Mean Corpuscular Hemoglobin Concent 32.7, Red Cell Distribution Width 14.6, Platelet Count 127L, Mean Platelet Volume 5.5L, Neutrophils (%) (Auto) , Lymphocytes (%) (Auto) , Monocytes (%) (Auto) , Eosinophils (%) (Auto) , Basophils (%) (Auto) , Differential Total Cells Counted 100, Neutrophils % (Manual) 69, Lymphocytes % ( Manual) 14L, Monocytes % (Manual) 15H, Eosinophils % (Manual) 1, Basophils % ( Manual) 1, Band Neutrophils 0, Platelet Estimate DecreasedL, Platelet Morphology Normal, Hypochromasia 3+, Anisocytosis 1+, Prothrombin Time 15.5H, Prothromb Time International Ratio 1.5H, Sodium Level 148H, Potassium Level 5.4H , Chloride Level 114H, Carbon Dioxide Level 16L, Anion Gap 18H, Blood Urea Nitrogen 71H, Creatinine 2.5H, Estimat Glomerular Filtration Rate 18.6, Glucose Level 105, Calcium Level 7.8L, Total Bilirubin 0.5, Aspartate Amino Transf (AST/ SGOT) 28, Alanine Aminotransferase (ALT/SGPT) 16, Alkaline Phosphatase 56, Ammonia 1348H, Troponin I 0.000, Pro-B-Type Natriuretic Peptide 1105H, Total Protein 5.6L, Albumin 1.8L, Globulin 3.8, Albumin/Globulin Ratio 0.5L Height (Feet): 5 Height (Inches): 5.00 Weight (Pounds): 148 General Appearance: other - intubated EENT: normal ENT inspection Neck: normal alignment, supple Cardiovascular: normal rate, regular rhythm Respiratory/Chest: crackles/rales, rhonchi - bilaterally Abdomen: non tender, soft Edema: 1+ Arm (L), 1+ Arm (R), 1+ Leg (L), 1+ Leg (R), 1+ Pedal (L), 1+ Pedal ( R), 1+ Generalized Juwan Angelo MD Jul 18, 2019 11:17
--- NOTE | 2019-07-18 11:26 | Pulmonology Progress Note ---
Assessment/Plan Assessment/Plan ASSESSMENT AND PLAN: 1. GI bleed likely due to esophageal varices, status post banding. I will defer management to Gastroenterology. 2. Acute encephalopathy due to elevated ammonia level. Continue lactulose enemas. Defer further management to Gastroenterology. 3. Anemia secondary to GI bleed. Blood transfusion if hemoglobin less than 7. 4. Diabetes mellitus. I will continue Accu-Cheks 5. DVT prophylaxis with SCD. 6. Shock; on Levophed 7. Acute respiratory failure; on vent 8. DNR now; discussed with family Jonny Mcgregor MD Subjective Interval Events: Intubated overnight; doing very poorly Constitutional: Reports: no symptoms HEENT: Repors: no symptoms Respiratory: Reports: no symptoms Cardiovascular: Reports: no symptoms Gastrointestinal/Abdominal: Reports: no symptoms Allergies: Coded Allergies: No Known Allergies (Unverified , 06/19/19) Objective Last 24 Hour Vital Signs Date Time Temp Pulse Resp B/P (MAP) Pulse Ox O2 Delivery O2 Flow Rate FiO2 07/18/19 11:09 98 20 100 07/18/19 11:00 99.8 99 30 52/27 (35) 100 07/18/19 10:30 98 34 51/28 (36) 85 07/18/19 10:00 93 32 51/26 (34) 86 07/18/19 09:30 91 34 50/26 (34) 84 07/18/19 09:05 73 20 100 07/18/19 09:00 97 32 48/25 (33) 88 07/18/19 09:00 48/25 07/18/19 08:30 96 17 53/25 (34) 85 07/18/19 08:21 98 07/18/19 08:00 Mechanical Ventilator 07/18/19 08:00 93 24 50/26 (34) 86 07/18/19 08:00 50/25 07/18/19 07:30 100.2 72 25 47/25 (32) 91 07/18/19 07:20 72 20 100 07/18/19 07:00 94 25 50/27 (35) 97 07/18/19 06:30 101 22 120/102 (108) 88 07/18/19 06:15 116 27 141/109 (120) 89 07/18/19 06:00 103 30 88/37 (54) 91 07/18/19 06:00 88/37 07/18/19 05:45 102 23 110/62 (78) 93 07/18/19 05:30 104 27 117/100 (106) 92 07/18/19 05:30 117/100 07/18/19 05:20 92/64 07/18/19 05:15 100 37 60/33 (42) 92 07/18/19 05:08 65 23 54/27 (36) 100 07/18/19 05:00 77 20 100 07/18/19 05:00 77 32 49/27 (34) 100 07/18/19 04:56 78 26 47/30 (36) 96 07/18/19 04:54 79 37 45/29 (34) 85 07/18/19 04:49 80 34 44/27 (33) 86 07/18/19 04:45 80 30 45/28 (34) 93 07/18/19 04:30 84 29 80/58 (65) 91 07/18/19 04:27 84 27 92/64 (73) 86 07/18/19 04:15 93 27 54/21 (32) 91 07/18/19 04:04 91 30 65/35 (45) 90 07/18/19 04:00 99.0 91 35 150/76 (100) 92 07/18/19 04:00 Mechanical Ventilator 07/18/19 04:00 91 07/18/19 03:44 93 29 154/125 (135) 89 07/18/19 03:15 112 30 157/124 (135) 87 07/18/19 03:14 108 26 100 07/18/19 03:00 104 36 132/108 (116) 95 07/18/19 02:30 120 36 118/78 (91) 84 07/18/19 02:15 124 35 131/54 (79) 89 07/18/19 02:00 122 27 143/71 (95) 81 07/18/19 01:02 115 34 90/68 (75) 97 07/18/19 01:00 95 35 57/44 (48) 94 07/18/19 00:31 115 32 103/63 (76) 92 07/18/19 00:00 120 07/18/19 00:00 98.4 120 26 86/43 (57) 93 07/18/19 00:00 Mechanical Ventilator 07/17/19 23:00 118 35 95/49 (64) 93 07/17/19 22:45 130 25 100 07/17/19 22:00 120 27 107/85 (92) 100 07/17/19 21:00 120 23 103/48 (66) 100 07/17/19 20:00 121 07/17/19 20:00 98.5 121 21 106/50 (68) 100 07/17/19 20:00 Mechanical Ventilator 07/17/19 19:03 123 22 100 07/17/19 19:00 123 23 111/62 (78) 07/17/19 18:00 130 26 110/50 (70) 80 07/17/19 17:00 98.6 141 22 124/55 (78) 99 07/17/19 16:30 143 20 40 07/17/19 16:15 143 20 98 Mechanical Ventilator 40 07/17/19 16:00 124 31 114/63 (80) 98 07/17/19 16:00 Room Air 07/17/19 16:00 144 07/17/19 15:59 125 07/17/19 15:00 125 33 110/50 (70) 98 07/17/19 14:00 117 26 129/60 (83) 100 07/17/19 13:00 117 26 128/96 (107) 100 07/17/19 12:00 97.7 07/17/19 12:00 115 25 136/64 (88) 99 07/17/19 12:00 115 07/17/19 12:00 Room Air Intake and Output 07/17/19 07/18/19 19:00 07:00 Intake Total 1642.5 ml 5564.5 ml Output Total 435 ml 2145 ml Balance 1207.5 ml 3419.5 ml Intake Oral 0 ml 0 ml IV Total 1642.5 ml 3564.5 ml Other 2000 ml Output Urine Total 435 ml 195 ml Stool Total 1950 ml # Bowel Movements 1 General Appearance: no acute distress HEENT: normocephalic Respiratory/Chest: chest wall non-tender, lungs clear Cardiovascular: normal peripheral pulses Abdomen: normal bowel sounds Microbiology Date/Time Source Procedure Growth Status 07/15/19 18:00 Blood Blood Culture - Preliminary NO GROWTH AFTER 48 HOURS Resulted 07/15/19 17:45 Blood Blood Culture - Preliminary NO GROWTH AFTER 48 HOURS Resulted 07/15/19 17:50 Nasal Nares MRSA Culture - Final NO METHICILLIN RESISTANT STAPH AUREUS... Complete 07/15/19 17:50 Rectum - Final NO CARBAPENEM-RESISTANT ENTEROBACTERI... Complete 07/15/19 17:50 Rectum VRE Culture - Final NO VANCOMYCIN RESISTANT ENTEROCOCCUS ... Complete Laboratory Tests 07/17/19 15:30: Arterial Blood pH 7.113*L, Arterial Blood Partial Pressure CO2 47.1H, Arterial Blood Partial Pressure O2 148.4H, Arterial Blood HCO3 14.7*L, Arterial Blood Oxygen Saturation 97.8, Arterial Blood Base Excess -14.1*L, Len Test Positive 07/17/19 17:15: Arterial Blood pH 7.336L, Arterial Blood Partial Pressure CO2 34.6L, Arterial Blood Partial Pressure O2 97.6, Arterial Blood HCO3 18.1L, Arterial Blood Oxygen Saturation , Arterial Blood Base Excess -6.8L, Len Test Positive 07/17/19 19:35: White Blood Count 7.7, Red Blood Count 3.05L, Hemoglobin 9.2L, Hematocrit 29.4L , Mean Corpuscular Volume 97#, Mean Corpuscular Hemoglobin 30.3, Mean Corpuscular Hemoglobin Concent 31.3L, Red Cell Distribution Width 14.9H, Platelet Count 135L, Mean Platelet Volume 6.1L, Neutrophils (%) (Auto) 75.0, Lymphocytes (%) (Auto) 7.3L, Monocytes (%) (Auto) 15.5H, Eosinophils (%) (Auto) 0.0, Basophils (%) (Auto) 2.2H 07/18/19 04:43: White Blood Count 6.0, Red Blood Count 2.35L, Hemoglobin 7.4L, Hematocrit 22.6L , Mean Corpuscular Volume 97, Mean Corpuscular Hemoglobin 31.6H, Mean Corpuscular Hemoglobin Concent 32.7, Red Cell Distribution Width 14.6, Platelet Count 127L, Mean Platelet Volume 5.5L, Neutrophils (%) (Auto) , Lymphocytes (%) (Auto) , Monocytes (%) (Auto) , Eosinophils (%) (Auto) , Basophils (%) (Auto) , Differential Total Cells Counted 100, Neutrophils % (Manual) 69, Lymphocytes % ( Manual) 14L, Monocytes % (Manual) 15H, Eosinophils % (Manual) 1, Basophils % ( Manual) 1, Band Neutrophils 0, Platelet Estimate DecreasedL, Platelet Morphology Normal, Hypochromasia 3+, Anisocytosis 1+, Prothrombin Time 15.5H, Prothromb Time International Ratio 1.5H, Sodium Level 148H, Potassium Level 5.4H , Chloride Level 114H, Carbon Dioxide Level 16L, Anion Gap 18H, Blood Urea Nitrogen 71H, Creatinine 2.5H, Estimat Glomerular Filtration Rate 18.6, Glucose Level 105, Calcium Level 7.8L, Total Bilirubin 0.5, Aspartate Amino Transf (AST/ SGOT) 28, Alanine Aminotransferase (ALT/SGPT) 16, Alkaline Phosphatase 56, Ammonia 1348H, Troponin I 0.000, Pro-B-Type Natriuretic Peptide 1105H, Total Protein 5.6L, Albumin 1.8L, Globulin 3.8, Albumin/Globulin Ratio 0.5L Current Medications Medications (Trade) Dose Ordered Sig/Cecelia Route PRN Reason Start Time Stop Time Status Last Admin Dose Admin Ceftriaxone Sodium 1 gm/ Dextrose 55 ml @ 110 mls/hr Q24H IVPB 07/16/19 13:00 07/23/19 12:59 07/17/19 13:18 Dextrose (Dextrose 50%) 25 ml Q30M PRN IV Hypoglycemia 07/16/19 11:00 10/14/19 10:59 Dextrose (Dextrose 50%) 50 ml Q30M PRN IV Hypoglycemia 07/16/19 11:00 10/14/19 10:59 Insulin Aspart (NovoLOG) BEFORE MEALS AND HS SUBQ 07/17/19 16:30 10/15/19 16:29 07/17/19 20:39 Lactulose 200 gm/ Sodium Chloride 1,000 ml @ 0 mls/hr Q8H RECTAL 07/17/19 11:00 07/24/19 10:59 07/18/19 03:33 Levetiracetam 100 ml @ 400 mls/hr Q12H IVPB 07/17/19 16:00 10/15/19 15:59 07/18/19 03:33 Norepinephrine Bitartrate 8 mg/ Dextrose 500 ml @ 0 mls/hr Q24H IV 07/18/19 06:00 08/17/19 05:59 07/18/19 05:20 Octreotide Acetate 500 mcg/ Sodium Chloride 500 ml @ 50 mls/hr Q10H IV 07/16/19 07:30 08/15/19 07:29 07/18/19 09:55 Pantoprazole 80 mg/Sodium Chloride 250 ml @ 25 mls/hr Q10H IV 07/16/19 12:00 08/15/19 11:59 07/18/19 03:33 Sodium Bicarbonate 100 ml/Sodium Chloride 1,100 ml @ 50 mls/hr Q22H IV 07/18/19 12:00 08/17/19 11:59 Sodium Chloride 1,000 ml @ 999 mls/hr Q1H1M ONCE IV 07/18/19 11:30 07/18/19 12:30 Jonny Mcgregor MD Jul 18, 2019 11:26
--- NOTE | 2019-07-18 13:17 | NUR ---
RD ASSESSMENT & RECOMMENDATIONS SEE CARE ACTIVITY FOR COMPLETE ASSESSMENT DAILY ESTIMATED NEEDS: Needs based on Critical care/ 67kg 22-28 kcals/kg 9432-8690 total kcals 1.2-2 g protein/kg 80-134 g total protein 25-30 mL/kg 9691-7506 total fluid mLs NUTRITION DIAGNOSIS: Swallowing difficulty R/T respiratory status as evidenced by orally intubated, hypotensive, on pressors upport, NPO. CURRENT TF:NPO ENTERAL NUTRITION RECOMMENDATIONS: WHEN MEDICALLY APPROPRIATE: Nepro @ 35ml/hr x 24 hrs to provide 840ml, 1512kcal, 68g prot, 611ml free water When medically appropriate to feed (+ GIB, hypotensive at this time) -> obtain GI access, rec Nepro (creat trend up, persistent hyperkalemia) -> Initiate Nepro @ 15ml/hr x 6hrs, advance 5ml q 4-6 hrs as tolerated to goal -> HOB over 30 degrees/ water flush per MD ADDITIONAL RECOMMENDATIONS: * Monitor HD stability: hypotensive, on pressor support * Monitor NPO status, ability to feed * Calibrated bedscale wt * Monitor renal fxn and lytes: creat trend up, K consistently elevated * Consider probiotics for + diarrhea, + rectal tube
[2019-07-18] MEDS: Sodium Bicarbonate 100 ML in Sodium Chloride 1,000 ML IV SCH (13:22)
[2019-07-18] MEDS: cefTRIAXone 1 GM in D5W 55 ML IVPB SCH (13:23)
--- NOTE | 2019-07-18 13:30 | NUR ---
NURSE NOTES: Turned and repositioned pt. Oral care done. Small amount of old blood from mouth noted. Afebrile. BP 50-60's on Levophed at 2 mcg/min. Will continue to monitor.
--- NOTE | 2019-07-18 15:15 | NUR ---
NURSE NOTES: 1st unit of pRBC transfusion started. Witnessed with KENNA Patiño. Pre-transfusion temp 98.2, Pulse 112, BP 55/31. Will reassess VS in 15 mins.
--- NOTE | 2019-07-18 18:30 | NUR ---
NURSE NOTES: 1st pRBC transfusion is done. No adverse transfusion reaction noted. Post-transfusion temp 97.3, HR 99, BP 65/36.
--- NOTE | 2019-07-18 18:30 | NUR ---
NURSE NOTES: Cleaned pt for small amount of leaked coffee ground BM. Turned and repositioned pt. BP 76/36. HR 99. O2 sat 100%. Afebrile. Will continue to monitor.
--- NOTE | 2019-07-18 19:24 | NUR ---
HAND-OFF: Report given to Hoang Mott RN.
--- NOTE | 2019-07-18 19:50 | NUR ---
NURSE NOTES: LE: PATIENT NO RESPONSE TO VERBAL AND TACTILE STIMULI, ON ETT TO VENT, AC20/TV450/FIO2 100%/PEEP5, O2 SATURATION 100% NOTED, HEART RATE 90'S/MIN SR, ABDOMEN DISTENDED, RECTAL TUBE INTACT AND PATENT, F/C INTACT AND PATENT, PPL TO LEFT FA 20G, LEFT WRIST 22G AND RIGHT HAND 20G, INTACT AND PATENT, ONGOING LEVOPHED 2MCG/MIN VIA PPL, PROTONIX 25ML/HR, SANDOSTATIN 50ML/HR AND IV FLUID SODIUM BICARB 1 AMP W/NS 1000ML AT 50ML/HR VIA PPL, MADE LOWER BED POSITION, ON BED ALARM AND LOCKED, KEPT SZ AND ASPIRATION PRECAUTION, PLACED CALL LIGHT WITHIN REACH, WILL CONTINUE TO MONITOR.
[2019-07-18] MEDS ORDERED: D5 1/2NS 1000ml IV ONE (21:06)
[2019-07-18] MEDS ORDERED: NS 275ml ONE (21:06)
[2019-07-18] MEDS ORDERED: D5W 550ml IV ONE (21:06)
[2019-07-18] MEDS ORDERED: Tubing IV Secondary IV ONE (21:06)
--- NOTE | 2019-07-18 21:29 | NUR ---
NURSE NOTES: NO RESPONSE STATUS, NO TWITCHING OR SZ STATUS.
--- NOTE | 2019-07-18 23:39 | NUR ---
NURSE NOTES: STARTED 1 UNIT PRBC ([id number]) BLOOD TRANSFUSION AFTER VERIFIED 2 NURSES AT 2245PM. NO SIDE REACTION NOTED AT THIS TIME.
[2019-07-19] VITALS (47 sets, daily range): BP systolic 71–95; BP diastolic 44–77
--- NOTE | 2019-07-19 01:12 | NUR ---
NURSE NOTES: PATIENT NO RESPONSE TO VERBALLY AND TACTILE STIMULI STATUS.
--- NOTE | 2019-07-19 01:28 | NUR ---
NURSE NOTES: le: CALLED BACK FROM PT'S NIECE WHO IS JILLIAN MELENDEZ THAT UPDATED PT'S SITUATION.
--- NOTE | 2019-07-19 02:00 | NUR ---
NURSE NOTES: LE: FINISHED BLOOD TRANSFUSION, NO SIDE REACTION NOTED.
[2019-07-19] MEDS: levETIRAcetam 500mg/NS100ml 100 ML IVPB SCH ×2 (03:20→15:54)
[2019-07-19] MEDS: Lactulose 200 GM in NS Irrig 1000ml 700 ML RECTAL SCH ×3 (03:20→20:17)
--- NOTE | 2019-07-19 03:54 | NUR ---
NURSE NOTES: MORNING CARE AND ORAL CARE WAS DONE.
--- NOTE | 2019-07-19 04:29 | Progress Note ---
CARDIOLOGY PROGRESS NOTE SUBJECTIVE: The patient was seen in the intensive care unit. Case discussed with ICU staff and primary care physician. The patient had a full arrest yesterday, now on full ventilator support. Condition remains critical. Prognosis guarded. Blood pressure parameters are dropping. The patient is on pressor support. OBJECTIVE: LUNGS: Bilateral breath sounds. Regular rhythm. Orally intubated. Mechanically ventilated. CARDIAC: Regular rhythm. Rapid rate. Normal S1, S2. ABDOMEN: Distended. EXTREMITIES: There is no edema. LABORATORY DATA: White count 6, hemoglobin 7.4. Pro-natriuretic peptide 1100. BUN 71, and creatinine 2.5. Sodium 148, potassium 5.4, bicarb 16, albumin 1.8. Ammonia is up to 1300. IMPRESSION: 1. Critical and grave. 2. Multiorgan system failure. 3. Respiratory failure. 4. Sepsis with shock. 5. Dehydration. 6. Hypernatremia. 7. Hyperchloremia. 8. Hepatic encephalopathy. 9. Acute GI bleeding. 10. End-stage renal disease. PLAN: 1. Limited options. 2. Ventilator support, volume support, pressor support. 3. Monitor blood counts. Replace as needed. 4. DNR appropriate at this time. Milly Anne JOB#: [id number] CC:
[2019-07-19 05:19] LABS: ANION GAP 18 mmol/L (5-15); BLOOD UREA NITROGEN 86 mg/dL (7-18); CALCIUM 7.7 MG/DL (8.5-10.1); CARBON DIOXIDE 16 MMOL/L (21-32); CHLORIDE 115 MMOL/L (98-107); CREATININE 2.8 MG/DL (0.55-1.30); POTASSIUM 3.8 MMOL/L (3.5-5.1); SODIUM 149 MMOL/L (136-145)
[2019-07-19] MEDS: Octreotide Acetate 500 MCG in Sodium Chloride 499 ML IV SCH ×2 (05:56→15:54)
[2019-07-19] MEDS: Norepinephrine Bitartrate 8 MG in D5W 500ml 492 ML IV SCH (05:56)
--- NOTE | 2019-07-19 06:00 | NUR ---
NURSE NOTES: TEMP 97.4F ON BARE HUGGER, WILL CONTINUE TO MONITOR.
[2019-07-19] MEDS: NovoLOG Insulin Flexpen SUBQ SCH ×4 (06:01→20:20)
--- NOTE | 2019-07-19 07:04 | General Progress Note ---
Assessment/Plan Problem List: (1) Cirrhosis ICD Codes: K74.60 - Unspecified cirrhosis of liver SNOMED: 63752022 (2) Esophageal varices ICD Codes: I85.00 - Esophageal varices without bleeding SNOMED: 84297638 (3) Ascites ICD Codes: R18.8 - Other ascites SNOMED: 068484873 (4) Anemia ICD Codes: D64.9 - Anemia, unspecified SNOMED: 508802164 (5) GI bleed ICD Codes: K92.2 - Gastrointestinal hemorrhage, unspecified SNOMED: 74803598 (6) Hepatic encephalopathy ICD Codes: K72.90 - Hepatic failure, unspecified without coma SNOMED: 05586554 (7) Altered level of consciousness ICD Codes: R40.4 - Transient alteration of awareness SNOMED: 8976585 Assessment/Plan: s/p EGD and banding last week s/p 2 units PRBC yesterday intubated DNR now check ammonia level>>> still high lactulose enema npo poor prognosis Subjective ROS Limited/Unobtainable: No Allergies: Coded Allergies: No Known Allergies (Unverified , 06/19/19) Objective Last 24 Hour Vital Signs Date Time Temp Pulse Resp B/P (MAP) Pulse Ox O2 Delivery O2 Flow Rate FiO2 07/19/19 06:30 87 20 71/47 (55) 99 07/19/19 06:00 79/51 07/19/19 06:00 97.4 86 20 79/51 (60) 96 07/19/19 05:56 79/52 07/19/19 05:30 84 20 80/53 (62) 94 07/19/19 05:00 83/51 07/19/19 05:00 84 20 83/51 (62) 87 07/19/19 04:51 86 20 100 07/19/19 04:50 100 07/19/19 04:30 78 20 82/45 (57) 100 07/19/19 04:00 Mechanical Ventilator 07/19/19 04:00 77 07/19/19 04:00 95.4 77 20 76/49 (58) 97 07/19/19 04:00 76/49 07/19/19 04:00 80 07/19/19 03:30 78 20 78/47 (57) 99 07/19/19 03:00 76 20 74/48 (57) 99 07/19/19 03:00 74/48 07/19/19 02:30 80 07/19/19 02:30 76 20 79/47 (58) 100 07/19/19 02:04 96 20 80 07/19/19 02:00 75 20 77/46 (56) 99 07/19/19 02:00 77/46 07/19/19 01:30 76 20 79/47 (58) 100 07/19/19 01:00 77/49 07/19/19 01:00 76 20 77/49 (58) 100 07/19/19 00:30 79 20 76/48 (57) 100 07/19/19 00:00 97.0 81 20 80/46 (57) 100 07/19/19 00:00 80/46 07/19/19 00:00 100 07/19/19 00:00 Mechanical Ventilator 07/18/19 23:30 83 20 79/46 (57) 100 07/18/19 23:24 83 07/18/19 23:14 97 19 100 07/18/19 23:00 85 20 79/46 (57) 100 07/18/19 23:00 79/46 07/18/19 22:30 87 20 73/43 (53) 100 07/18/19 22:00 89 20 75/44 (54) 100 07/18/19 22:00 75/44 07/18/19 21:30 90 20 75/43 (54) 100 07/18/19 21:15 91 20 69/41 (50) 100 07/18/19 21:00 92 20 74/43 (53) 100 07/18/19 21:00 74/43 07/18/19 20:45 94 20 75/42 (53) 100 07/18/19 20:30 94 20 76/41 (53) 100 07/18/19 20:15 93 20 62/35 (44) 100 07/18/19 20:00 74/40 07/18/19 20:00 100 07/18/19 20:00 Mechanical Ventilator 07/18/19 20:00 98.4 95 20 74/40 (51) 100 07/18/19 19:45 96 20 72/42 (52) 100 07/18/19 19:30 96 20 67/40 (49) 100 07/18/19 19:26 94 20 100 07/18/19 19:00 69/39 07/18/19 19:00 98 20 68/38 (48) 100 07/18/19 19:00 98 20 68/38 (48) 100 07/18/19 18:30 99 20 65/36 (46) 100 07/18/19 18:00 65/36 07/18/19 18:00 101 20 72/36 (48) 100 07/18/19 17:30 102 21 68/38 (48) 100 07/18/19 17:14 103 20 100 07/18/19 17:00 68/35 07/18/19 17:00 105 20 68/35 (46) 100 07/18/19 16:30 107 20 66/33 (44) 100 07/18/19 16:19 108 07/18/19 16:00 Mechanical Ventilator 07/18/19 16:00 62/34 07/18/19 16:00 112 20 61/35 (44) 100 07/18/19 15:30 98.3 114 20 62/32 (42) 100 07/18/19 15:00 60/34 07/18/19 15:00 111 32 55/31 (39) 100 07/18/19 14:50 104 20 100 07/18/19 14:30 101 30 60/32 (41) 100 07/18/19 14:00 98 33 60/32 (41) 100 07/18/19 14:00 60/32 07/18/19 13:30 98.8 96 34 58/31 (40) 100 07/18/19 13:07 96 20 100 07/18/19 13:00 96 33 55/28 (37) 100 07/18/19 13:00 56/29 07/18/19 12:30 89 32 60/30 (40) 100 07/18/19 12:00 96 32 60/30 (40) 100 07/18/19 12:00 57/28 07/18/19 12:00 Mechanical Ventilator 07/18/19 11:30 97 31 52/28 (36) 100 07/18/19 11:29 96 07/18/19 11:09 98 20 100 07/18/19 11:00 99.8 99 30 52/27 (35) 100 07/18/19 11:00 52/27 07/18/19 10:30 98 34 51/28 (36) 85 07/18/19 10:00 93 32 51/26 (34) 86 07/18/19 10:00 49/27 07/18/19 09:30 91 34 50/26 (34) 84 07/18/19 09:05 73 20 100 07/18/19 09:00 97 32 48/25 (33) 88 07/18/19 09:00 48/25 07/18/19 08:30 96 17 53/25 (34) 85 07/18/19 08:21 98 07/18/19 08:00 Mechanical Ventilator 07/18/19 08:00 93 24 50/26 (34) 86 07/18/19 08:00 50/25 07/18/19 07:30 100.2 72 25 47/25 (32) 91 07/18/19 07:20 72 20 100 Intake and Output 07/18/19 07/19/19 19:00 07:00 Intake Total 3839.3 ml 3807.5 ml Output Total 980 ml 2330 ml Balance 2859.3 ml 1477.5 ml Intake Oral 0 ml 0 ml IV Total 2589.3 ml 1557.5 ml Blood Product 250 ml 250 ml Other 1000 ml 2000 ml Output Urine Total 80 ml 330 ml Stool Total 900 ml 2000 ml Laboratory Tests 07/19/19 04:11: Sodium Level 149H, Potassium Level 3.8, Chloride Level 115H, Carbon Dioxide Level 16L, Anion Gap 18H, Blood Urea Nitrogen 86H, Creatinine 2.8H, Estimat Glomerular Filtration Rate 16.2, Glucose Level 192H, Calcium Level 7.7L, Ammonia 242H Height (Feet): 5 Height (Inches): 5.00 Weight (Pounds): 153 General Appearance: lethargic EENT: normal ENT inspection Neck: supple Cardiovascular: tachycardia Respiratory/Chest: decreased breath sounds Abdomen: normal bowel sounds, non tender, soft Extremities: non-tender Jj Hermosillo MD Jul 19, 2019 07:04
--- NOTE | 2019-07-19 07:10 | NUR ---
HAND-OFF: Report given to KENNA SHANKAR.
--- NOTE | 2019-07-19 07:11 | NUR ---
NURSE NOTES: Late entry: PT and report received from KENNA Bolton; DNR status bilateral pupil dilated no reflex to light noted, not arousable to painful stimuli sternal rub; received intubated ETT 7.5 @ 21 R-lip, AC 20, TV 450, 100%, peep 5; received saturating at 85%; child monitor shows SR HR 90; received on levophed 2mcg/min infusing via L-wrist 22g; NPO status due to reported multiple varices; PT has whiting and rectal tube both patent intact draining at lowest position; skin issues noted for sacral redness; PIV R-hand 20g infusing sandostatin 50ml/hr; Sodium bicarb in NS @ 50cc/hr; protonix 25cc/hr all patent, L-forearm 20g intact, generalized edema noted, mottling noted on BLE, will continue to monitor PT.
[2019-07-19 07:51] LABS: HEMATOCRIT 33.3 % (37.0-47.0); HEMOGLOBIN 11.5 G/DL (12.0-16.0); MEAN CORPUSCULAR VOLUME 89 FL (80-99); PLATELET COUNT 59 K/UL (150-450); RED BLOOD COUNT 3.72 M/UL (4.20-5.40); RED CELL DISTRIBUTION WIDTH 13.5 % (11.6-14.8); WHITE BLOOD COUNT 5.7 K/UL (4.8-10.8)
--- NOTE | 2019-07-19 10:16 | NUR ---
NURSE NOTES: Informed MD Bay that platelets transfusion order is being held, platelet levels does not meet [facility] protocol for transfusion, informed MD to call [facility] pathologist MD Sabrina. MD Bay orders given to hold transfusion. ALYCIA Russell made aware.
[2019-07-19] MEDS: Sodium Bicarbonate 100 ML in Sodium Chloride 1,000 ML IV SCH (10:24)
[2019-07-19] MEDS: Pantoprazole 80 MG in NS 250 ML IV SCH ×2 (10:24→20:18)
--- NOTE | 2019-07-19 11:15 | Pulmonology Progress Note ---
Assessment/Plan Assessment/Plan ASSESSMENT AND PLAN: 1. GI bleed due to esophageal varices, status post banding. I will defer management to Gastroenterology. 2. Acute encephalopathy due to elevated ammonia level. Continue lactulose enemas. Defer further management to Gastroenterology. 3. Anemia secondary to GI bleed. Blood transfusion if hemoglobin less than 7. 4. Diabetes mellitus. I will continue Accu-Cheks 5. DVT prophylaxis with SCD. 6. Shock; on Levophed 7. Acute respiratory failure; on vent 8. DNR now; discussed with family Jonny Mcgregor MD Subjective Interval Events: Remains intubated; on pressors; s/p prbc yesterday Constitutional: Reports: no symptoms HEENT: Repors: no symptoms Respiratory: Reports: no symptoms Cardiovascular: Reports: no symptoms Gastrointestinal/Abdominal: Reports: no symptoms Allergies: Coded Allergies: No Known Allergies (Unverified , 06/19/19) Objective Last 24 Hour Vital Signs Date Time Temp Pulse Resp B/P (MAP) Pulse Ox O2 Delivery O2 Flow Rate FiO2 07/19/19 10:30 99 20 84/48 (60) 90 07/19/19 10:00 97 20 81/48 (59) 97 07/19/19 10:00 86/48 07/19/19 09:30 95 20 82/48 (59) 89 07/19/19 09:00 81/48 07/19/19 09:00 94 20 81/48 (59) 86 07/19/19 08:30 92 20 81/47 (58) 87 07/19/19 08:00 Mechanical Ventilator 07/19/19 08:00 98.3 89 21 77/45 (56) 84 07/19/19 08:00 81/48 07/19/19 07:30 88 20 76/46 (56) 86 07/19/19 07:29 88 20 100 07/19/19 07:00 75/45 07/19/19 07:00 87 20 75/45 (55) 99 07/19/19 06:30 87 20 71/47 (55) 99 07/19/19 06:00 79/51 07/19/19 06:00 97.4 86 20 79/51 (60) 96 07/19/19 05:56 79/52 07/19/19 05:30 84 20 80/53 (62) 94 07/19/19 05:00 83/51 07/19/19 05:00 84 20 83/51 (62) 87 07/19/19 04:51 86 20 100 07/19/19 04:50 100 07/19/19 04:30 78 20 82/45 (57) 100 07/19/19 04:00 Mechanical Ventilator 07/19/19 04:00 77 07/19/19 04:00 95.4 77 20 76/49 (58) 97 07/19/19 04:00 76/49 07/19/19 04:00 80 07/19/19 03:30 78 20 78/47 (57) 99 07/19/19 03:00 76 20 74/48 (57) 99 07/19/19 03:00 74/48 07/19/19 02:30 80 07/19/19 02:30 76 20 79/47 (58) 100 07/19/19 02:04 96 20 80 07/19/19 02:00 75 20 77/46 (56) 99 07/19/19 02:00 77/46 07/19/19 01:30 76 20 79/47 (58) 100 07/19/19 01:00 77/49 07/19/19 01:00 76 20 77/49 (58) 100 07/19/19 00:30 79 20 76/48 (57) 100 07/19/19 00:00 97.0 81 20 80/46 (57) 100 07/19/19 00:00 80/46 07/19/19 00:00 100 07/19/19 00:00 Mechanical Ventilator 07/18/19 23:30 83 20 79/46 (57) 100 07/18/19 23:24 83 07/18/19 23:14 97 19 100 07/18/19 23:00 85 20 79/46 (57) 100 07/18/19 23:00 79/46 07/18/19 22:30 87 20 73/43 (53) 100 07/18/19 22:00 89 20 75/44 (54) 100 07/18/19 22:00 75/44 4/11/20 21:30 90 20 75/43 (54) 100 07/18/19 21:15 91 20 69/41 (50) 100 07/18/19 21:00 92 20 74/43 (53) 100 07/18/19 21:00 74/43 07/18/19 20:45 94 20 75/42 (53) 100 07/18/19 20:30 94 20 76/41 (53) 100 07/18/19 20:15 93 20 62/35 (44) 100 07/18/19 20:00 74/40 07/18/19 20:00 100 07/18/19 20:00 Mechanical Ventilator 07/18/19 20:00 98.4 95 20 74/40 (51) 100 07/18/19 19:45 96 20 72/42 (52) 100 07/18/19 19:30 96 20 67/40 (49) 100 07/18/19 19:26 94 20 100 07/18/19 19:00 69/39 07/18/19 19:00 98 20 68/38 (48) 100 07/18/19 19:00 98 20 68/38 (48) 100 07/18/19 18:30 99 20 65/36 (46) 100 07/18/19 18:00 65/36 07/18/19 18:00 101 20 72/36 (48) 100 07/18/19 17:30 102 21 68/38 (48) 100 07/18/19 17:14 103 20 100 07/18/19 17:00 68/35 07/18/19 17:00 105 20 68/35 (46) 100 07/18/19 16:30 107 20 66/33 (44) 100 07/18/19 16:19 108 07/18/19 16:00 Mechanical Ventilator 07/18/19 16:00 62/34 07/18/19 16:00 112 20 61/35 (44) 100 07/18/19 15:30 98.3 114 20 62/32 (42) 100 07/18/19 15:00 60/34 07/18/19 15:00 111 32 55/31 (39) 100 07/18/19 14:50 104 20 100 07/18/19 14:30 101 30 60/32 (41) 100 07/18/19 14:00 98 33 60/32 (41) 100 07/18/19 14:00 60/32 07/18/19 13:30 98.8 96 34 58/31 (40) 100 07/18/19 13:07 96 20 100 07/18/19 13:00 96 33 55/28 (37) 100 07/18/19 13:00 56/29 07/18/19 12:30 89 32 60/30 (40) 100 07/18/19 12:00 96 32 60/30 (40) 100 07/18/19 12:00 57/28 07/18/19 12:00 Mechanical Ventilator 07/18/19 11:30 97 31 52/28 (36) 100 07/18/19 11:29 96 Intake and Output 07/18/19 07/19/19 19:00 07:00 Intake Total 3839.3 ml 3940.0 ml Output Total 980 ml 2380 ml Balance 2859.3 ml 1560.0 ml Intake Oral 0 ml 0 ml IV Total 2589.3 ml 1690.0 ml Blood Product 250 ml 250 ml Other 1000 ml 2000 ml Output Urine Total 80 ml 380 ml Stool Total 900 ml 2000 ml General Appearance: no acute distress HEENT: normocephalic Respiratory/Chest: chest wall non-tender Cardiovascular: normal peripheral pulses Abdomen: normal bowel sounds Laboratory Tests 07/19/19 04:11: White Blood Count 5.7, Red Blood Count 3.72L, Hemoglobin 11.5#L, Hematocrit 33.3 #L, Mean Corpuscular Volume 89#, Mean Corpuscular Hemoglobin 30.9, Mean Corpuscular Hemoglobin Concent 34.5, Red Cell Distribution Width 13.5, Platelet Count 59#L, Mean Platelet Volume 6.2L, Neutrophils (%) (Auto) , Lymphocytes (%) (Auto) , Monocytes (%) (Auto) , Eosinophils (%) (Auto) , Basophils (%) (Auto) , Differential Total Cells Counted 100, Neutrophils % (Manual) 67, Lymphocytes % ( Manual) 18L, Monocytes % (Manual) 10, Eosinophils % (Manual) 1, Basophils % ( Manual) 0, Band Neutrophils 4, Platelet Estimate DecreasedL, Platelet Morphology Normal, Polychromasia 1+, Hypochromasia 1+, Anisocytosis 1+, Sodium Level 149H, Potassium Level 3.8, Chloride Level 115H, Carbon Dioxide Level 16L, Anion Gap 18H, Blood Urea Nitrogen 86H, Creatinine 2.8H, Estimat Glomerular Filtration Rate 16.2, Glucose Level 192H, Calcium Level 7.7L, Ammonia 242H Current Medications Medications (Trade) Dose Ordered Sig/Cecelia Route PRN Reason Start Time Stop Time Status Last Admin Dose Admin Ceftriaxone Sodium 1 gm/ Dextrose 55 ml @ 110 mls/hr Q24H IVPB 07/16/19 13:00 07/23/19 12:59 07/18/19 13:23 Dextrose (Dextrose 50%) 25 ml Q30M PRN IV Hypoglycemia 07/16/19 11:00 10/14/19 10:59 Dextrose (Dextrose 50%) 50 ml Q30M PRN IV Hypoglycemia 07/16/19 11:00 10/14/19 10:59 Insulin Aspart (NovoLOG) BEFORE MEALS AND HS SUBQ 07/17/19 16:30 10/15/19 16:29 07/19/19 06:01 Lactulose 200 gm/ Sodium Chloride 1,000 ml @ 0 mls/hr Q8H RECTAL 07/17/19 11:00 07/24/19 10:59 07/19/19 03:20 Levetiracetam 100 ml @ 400 mls/hr Q12H IVPB 07/17/19 16:00 10/15/19 15:59 07/19/19 03:20 Norepinephrine Bitartrate 8 mg/ Dextrose 500 ml @ 0 mls/hr Q24H IV 07/18/19 06:00 08/17/19 05:59 07/19/19 05:56 Octreotide Acetate 500 mcg/ Sodium Chloride 500 ml @ 50 mls/hr Q10H IV 07/16/19 07:30 08/15/19 07:29 07/19/19 05:56 Pantoprazole 80 mg/Sodium Chloride 250 ml @ 25 mls/hr Q10H IV 07/16/19 12:00 08/15/19 11:59 07/19/19 10:24 Sodium Bicarbonate 100 ml/Sodium Chloride 1,100 ml @ 50 mls/hr Q22H IV 07/18/19 12:00 08/17/19 11:59 07/19/19 10:24 Jonny Mcgregor MD Jul 19, 2019 11:15
--- NOTE | 2019-07-19 11:21 | Nephrology Progress Note ---
Assessment/Plan Assessment/Plan: A/P 1) CECELIA - due to ischemic nephropathy from hypotension - Cr continues to worsened due to hypotension - prn fluid bolus - avoid nephrotoxins - MAP >65 mmHg for adequate renal perfusion - poor prognosis will try to avoid [employer] 2) Hyperkalemia- mild due to GI bleed and RI - resolved 3) Encephalopathy- hepatic/alcohol - lactulose - ammonia level monitored 4) Hypernatremia- change IVFs to D5W Poor overall prognosis with high level of mortality Subjective Date patient seen: Jul 19, 2019 Time patient seen: 11:19 ROS Limited/Unobtainable: Yes Allergies: Coded Allergies: No Known Allergies (Unverified , 06/19/19) Subjective Patient remains intubated on IV pressor support Objective Last 24 Hour Vital Signs Date Time Temp Pulse Resp B/P (MAP) Pulse Ox O2 Delivery O2 Flow Rate FiO2 07/19/19 10:30 99 20 84/48 (60) 90 07/19/19 10:00 97 20 81/48 (59) 97 07/19/19 10:00 86/48 07/19/19 09:30 95 20 82/48 (59) 89 07/19/19 09:00 81/48 07/19/19 09:00 94 20 81/48 (59) 86 07/19/19 08:30 92 20 81/47 (58) 87 07/19/19 08:00 Mechanical Ventilator 07/19/19 08:00 98.3 89 21 77/45 (56) 84 07/19/19 08:00 81/48 07/19/19 07:30 88 20 76/46 (56) 86 07/19/19 07:29 88 20 100 07/19/19 07:00 75/45 07/19/19 07:00 87 20 75/45 (55) 99 07/19/19 06:30 87 20 71/47 (55) 99 07/19/19 06:00 79/51 07/19/19 06:00 97.4 86 20 79/51 (60) 96 07/19/19 05:56 79/52 07/19/19 05:30 84 20 80/53 (62) 94 07/19/19 05:00 83/51 07/19/19 05:00 84 20 83/51 (62) 87 07/19/19 04:51 86 20 100 07/19/19 04:50 100 07/19/19 04:30 78 20 82/45 (57) 100 07/19/19 04:00 Mechanical Ventilator 07/19/19 04:00 77 07/19/19 04:00 95.4 77 20 76/49 (58) 97 07/19/19 04:00 76/49 07/19/19 04:00 80 07/19/19 03:30 78 20 78/47 (57) 99 07/19/19 03:00 76 20 74/48 (57) 99 07/19/19 03:00 74/48 07/19/19 02:30 80 07/19/19 02:30 76 20 79/47 (58) 100 07/19/19 02:04 96 20 80 07/19/19 02:00 75 20 77/46 (56) 99 07/19/19 02:00 77/46 07/19/19 01:30 76 20 79/47 (58) 100 07/19/19 01:00 77/49 07/19/19 01:00 76 20 77/49 (58) 100 07/19/19 00:30 79 20 76/48 (57) 100 07/19/19 00:00 97.0 81 20 80/46 (57) 100 07/19/19 00:00 80/46 07/19/19 00:00 100 07/19/19 00:00 Mechanical Ventilator 07/18/19 23:30 83 20 79/46 (57) 100 07/18/19 23:24 83 07/18/19 23:14 97 19 100 07/18/19 23:00 85 20 79/46 (57) 100 07/18/19 23:00 79/46 07/18/19 22:30 87 20 73/43 (53) 100 07/18/19 22:00 89 20 75/44 (54) 100 07/18/19 22:00 75/44 07/18/19 21:30 90 20 75/43 (54) 100 07/18/19 21:15 91 20 69/41 (50) 100 07/18/19 21:00 92 20 74/43 (53) 100 07/18/19 21:00 74/43 07/18/19 20:45 94 20 75/42 (53) 100 07/18/19 20:30 94 20 76/41 (53) 100 07/18/19 20:15 93 20 62/35 (44) 100 07/18/19 20:00 74/40 07/18/19 20:00 100 07/18/19 20:00 Mechanical Ventilator 07/18/19 20:00 98.4 95 20 74/40 (51) 100 07/18/19 19:45 96 20 72/42 (52) 100 07/18/19 19:30 96 20 67/40 (49) 100 07/18/19 19:26 94 20 100 07/18/19 19:00 69/39 07/18/19 19:00 98 20 68/38 (48) 100 07/18/19 19:00 98 20 68/38 (48) 100 07/18/19 18:30 99 20 65/36 (46) 100 07/18/19 18:00 65/36 07/18/19 18:00 101 20 72/36 (48) 100 07/18/19 17:30 102 21 68/38 (48) 100 07/18/19 17:14 103 20 100 07/18/19 17:00 68/35 07/18/19 17:00 105 20 68/35 (46) 100 07/18/19 16:30 107 20 66/33 (44) 100 07/18/19 16:19 108 07/18/19 16:00 Mechanical Ventilator 07/18/19 16:00 62/34 07/18/19 16:00 112 20 61/35 (44) 100 07/18/19 15:30 98.3 114 20 62/32 (42) 100 07/18/19 15:00 60/34 07/18/19 15:00 111 32 55/31 (39) 100 07/18/19 14:50 104 20 100 07/18/19 14:30 101 30 60/32 (41) 100 07/18/19 14:00 98 33 60/32 (41) 100 07/18/19 14:00 60/32 07/18/19 13:30 98.8 96 34 58/31 (40) 100 07/18/19 13:07 96 20 100 07/18/19 13:00 96 33 55/28 (37) 100 07/18/19 13:00 56/29 07/18/19 12:30 89 32 60/30 (40) 100 07/18/19 12:00 96 32 60/30 (40) 100 07/18/19 12:00 57/28 07/18/19 12:00 Mechanical Ventilator 07/18/19 11:30 97 31 52/28 (36) 100 07/18/19 11:29 96 Intake and Output 07/18/19 07/19/19 19:00 07:00 Intake Total 3839.3 ml 3940.0 ml Output Total 980 ml 2380 ml Balance 2859.3 ml 1560.0 ml Intake Oral 0 ml 0 ml IV Total 2589.3 ml 1690.0 ml Blood Product 250 ml 250 ml Other 1000 ml 2000 ml Output Urine Total 80 ml 380 ml Stool Total 900 ml 2000 ml Laboratory Tests 07/19/19 04:11: White Blood Count 5.7, Red Blood Count 3.72L, Hemoglobin 11.5#L, Hematocrit 33.3 #L, Mean Corpuscular Volume 89#, Mean Corpuscular Hemoglobin 30.9, Mean Corpuscular Hemoglobin Concent 34.5, Red Cell Distribution Width 13.5, Platelet Count 59#L, Mean Platelet Volume 6.2L, Neutrophils (%) (Auto) , Lymphocytes (%) (Auto) , Monocytes (%) (Auto) , Eosinophils (%) (Auto) , Basophils (%) (Auto) , Differential Total Cells Counted 100, Neutrophils % (Manual) 67, Lymphocytes % ( Manual) 18L, Monocytes % (Manual) 10, Eosinophils % (Manual) 1, Basophils % ( Manual) 0, Band Neutrophils 4, Platelet Estimate DecreasedL, Platelet Morphology Normal, Polychromasia 1+, Hypochromasia 1+, Anisocytosis 1+, Sodium Level 149H, Potassium Level 3.8, Chloride Level 115H, Carbon Dioxide Level 16L, Anion Gap 18H, Blood Urea Nitrogen 86H, Creatinine 2.8H, Estimat Glomerular Filtration Rate 16.2, Glucose Level 192H, Calcium Level 7.7L, Ammonia 242H Height (Feet): 5 Height (Inches): 5.00 Weight (Pounds): 153 General Appearance: no apparent distress EENT: normal ENT inspection Neck: normal alignment Cardiovascular: normal rate, regular rhythm Respiratory/Chest: rhonchi - bilaterally Abdomen: non tender, soft Edema: 1+ Arm (L), 1+ Arm (R), 1+ Leg (L), 1+ Leg (R), 1+ Pedal (L), 1+ Pedal ( R), 1+ Generalized Juwan Angelo MD Jul 19, 2019 11:21
[2019-07-19] MEDS: cefTRIAXone 1 GM in D5W 55 ML IVPB SCH (12:22)
[2019-07-19 12:44] LABS: HEMOGLOBIN 9.9 G/DL (12.0-16.0); MEAN CORPUSCULAR VOLUME 88 FL (80-99); PLATELET COUNT 68 K/UL (150-450); RED BLOOD COUNT 3.28 M/UL (4.20-5.40); RED CELL DISTRIBUTION WIDTH 13.6 % (11.6-14.8); WHITE BLOOD COUNT 5.8 K/UL (4.8-10.8)
--- NOTE | 2019-07-19 12:55 | NUR ---
NURSE NOTES: IV spreadsheet documented Lactulose 700ml rectally but entired amount of 1000ml given to PT via rectal tube.
--- NOTE | 2019-07-19 14:03 | NUR ---
NURSE NOTES: PT lucio Fernández called, updates given over the phone, informed PT still remains on medication to keep BP up, remains intubated, no change.
[2019-07-19] MEDS ORDERED: D5 1/2NS 1000ml IV ONE (14:15)
[2019-07-19] MEDS ORDERED: NS 275ml ONE (14:15)
[2019-07-19] MEDS ORDERED: Tubing IV Secondary IV ONE (14:15)
[2019-07-19] MEDS ORDERED: D5W 275ml ONE (14:15)
--- NOTE | 2019-07-19 14:30 | NUR ---
NURSE NOTES: Late entry: PT lucio Fernández called asking what would happen if ETT is taken out, informed lucio that PT would not be able to breathe and referred her to call back if she would like to speak with primary MD.
--- NOTE | 2019-07-19 18:33 | NUR ---
NURSE NOTES: Generalized pitting edema noted BUE 2+; PT placed supine, remains on levophed 2mcg/min will continue to monitor PT.
--- NOTE | 2019-07-19 19:20 | NUR ---
HAND-OFF: Report and PT given to KENNA Mcmillan.
--- NOTE | 2019-07-19 20:00 | NUR ---
NURSE NOTES: SBAR from Scott PIERSON; DNR status bilateral pupil dilated no reflex to light noted, not arousable to painful stimuli sternal rub; received intubated ETT 7.5 @ 21 R-lip, AC 20, TV 450, 100%, peep 5; received saturating at 85%; cardiac catheterization technologist shows SR HR 90; received on levophed 2mcg/min infusing via L-wrist 22g; NPO status due to reported multiple varices; PT has whiting and rectal tube both patent intact draining at lowest position; skin issues noted for sacral redness; PIV R-hand 20g infusing sandostatin 50ml/hr; Sodium bicarb in NS @ 50cc/hr; protonix 25cc/hr all patent, L-forearm 20g intact, generalized edema noted, mottling noted on BLE, will continue to monitor PT.
--- NOTE | 2019-07-19 20:30 | NUR ---
NURSE NOTES: Per Charge Nurse, Patients lucio Mills called on regard of patient and expressed wishes to compassionately terminally extubate patient. Will call Jolene to verify statements.
--- NOTE | 2019-07-19 21:26 | NUR ---
NURSE NOTES: Patients next of kin Marcelle Contreras called back regarding about extubation. Marcelle expressed that she wanted her Aunt to be extubated. I informed her the risks regarding extubation and what may come of it. Patients next of kin did not understand that by extubating the patient that she may pass away within a few minutes to hours from post extubation. Next of kin said she will call back or have Jolene Adhikari call back with the decision plan. Will continue to monitor. Addendum: 07/20/19 at 0034 by TAMAR DENNIS RN Correction: Next of kin is not named Marcelle Contreras it was Lamar Contreras, missed entered name on this nurses notes.
--- NOTE | 2019-07-19 22:01 | NUR ---
NURSE NOTES: I spoke with both Lamar Contreras and Jolene Yepez over the phone and they have decided to terminally extubate patient in the morning around 0700. Both members mentioned that patient does have a mortuary ready and set up for patient. They expressed over the phone that " We dont want her to go through all this suffering and thats what she would want too. Both expressed that they want patient to be terminally extubated in the morning and have the primary nurse call the family once patient has passed. [facility] [place] [phone] (Essence Charles, person in charge at home) 2nd [phone]
--- NOTE | 2019-07-19 22:30 | NUR ---
NURSE NOTES: I called Dr. Mcgregor's non-urgent line and left message regarding families wishes of terminally extubating patient in the morning.
--- NOTE | 2019-07-19 22:30 | NUR ---
NURSE NOTES: Patients lucio Contreras has indicated that no one can come to sign "CONSENT TO RELEASE REMAINS" and has given verbal consent over the phone to release body to patients arranged mortuary. KENNA Guardado was 2nd witness to verbal consent over the phone.
[2019-07-20] VITALS (20 sets, daily range): BP systolic 65–93; BP diastolic 41–54
--- NOTE | 2019-07-20 00:46 | NUR ---
NURSE NOTES: [facility] was called and informed about families decision to extubate in the morning, per Christiano, [facility] representative, he said to call in the morning once patient is . Per Christiano, he said patient is most likely not a candidate for tissue donation but to call again once cardiac has been pronounced.
--- NOTE | 2019-07-20 02:00 | NUR ---
NURSE NOTES: Levophed remains on at 2 mcg/min. Patient has no gag reflexes, nor eye reflexes. No reflexes to stimulations. So far BP remains on the lower side but given that patients on low dose of pressors due to not having central line as per families earlier request. Treatment will follow as ordered.
[2019-07-20] MEDS: Octreotide Acetate 500 MCG in Sodium Chloride 499 ML IV SCH (02:37)
[2019-07-20] MEDS: Lactulose 200 GM in NS Irrig 1000ml 700 ML RECTAL SCH ×2 (02:37→11:00)
[2019-07-20] MEDS: levETIRAcetam 500mg/NS100ml 100 ML IVPB SCH (04:00)
--- NOTE | 2019-07-20 04:00 | NUR ---
NURSE NOTES: Patient was compassionately bathed and dried. Patient continues to not have any gag reflexes or any other form of reaction to stimulation. Patient is on a warming blanket as temperature earlier was 97.1F. All due medications were given. Vitals remains stable at this time. Will continue to monitor.
--- NOTE | 2019-07-20 05:15 | Progress Note ---
DATE: 07/19/2019 CARDIOLOGY PROGRESS NOTE SUBJECTIVE: Condition remains critical. Prognosis guarded. The patient remains in the intensive care unit. Blood pressure parameters are difficult to report. The patient is on pressors. Monitored rhythm sinus, sinus tachycardia, atrial ectopy. OBJECTIVE: VITAL SIGNS: Blood pressure 81/48, heart rate 97, respiratory rate 20. The patient is on ventilator support. LUNGS: Bilateral breath sounds. Rhonchi. CARDIAC: Regular rhythm. Rapid rate. Normal S1 and S2. ABDOMEN: Distended and ascitic. EXTREMITIES: There is 1+ edema, dependent edema. LABORATORY DATA: White count 5.8, hemoglobin 9.9, and platelet count 68,000. Sodium 149, potassium 3.8, bicarb 16, BUN 86, creatinine 2.8, and ammonia 242. IMPRESSION: 1. Multiorgan system failure. 2. GI bleeding due to esophageal varices. 3. Hepatic encephalopathy. 4. Shock. 5. Sepsis. 6. Metabolic acidosis. 7. Hypernatremia. 8. Dehydration. 9. Volume overload with elevated natriuretic peptide assay. 10. Anemia. 11. Thrombocytopenia. PLAN: 1. Volume support. 2. Antimicrobials. 3. Pressors with taper as able. 4. Packed red blood cell and platelet transfusions as needed. 5. Lactulose to control ammonia levels. 6. Ventilator support. Haroon Pimentel M.D. DR: HOWARD JOB#: [id number] CC:
--- NOTE | 2019-07-20 05:45 | NUR ---
NURSE NOTES: [employer] [facility] [employer] sales representative Galen Rice RN is here to get more information regards patients condition.
[2019-07-20 05:50] LABS: HEMATOCRIT 30.9 % (37.0-47.0); HEMOGLOBIN 10.6 G/DL (12.0-16.0); INR 1.9 (0.9-1.1); MEAN CORPUSCULAR VOLUME 89 FL (80-99); PLATELET COUNT 63 K/UL (150-450); RED BLOOD COUNT 3.48 M/UL (4.20-5.40); RED CELL DISTRIBUTION WIDTH 13.6 % (11.6-14.8); WHITE BLOOD COUNT 4.9 K/UL (4.8-10.8)
[2019-07-20] MEDS: Norepinephrine Bitartrate 8 MG in D5W 500ml 492 ML IV SCH (06:00)
[2019-07-20 06:09] LABS: ANION GAP 17 mmol/L (5-15); BLOOD UREA NITROGEN 85 mg/dL (7-18); CALCIUM 8.1 MG/DL (8.5-10.1); CARBON DIOXIDE 18 MMOL/L (21-32); CHLORIDE 117 MMOL/L (98-107); CREATININE 2.9 MG/DL (0.55-1.30); POTASSIUM 3.2 MMOL/L (3.5-5.1); SODIUM 152 MMOL/L (136-145)
[2019-07-20] MEDS: Pantoprazole 80 MG in NS 250 ML IV SCH (06:24)
[2019-07-20] MEDS: NovoLOG Insulin Flexpen SUBQ SCH (06:25)
--- NOTE | 2019-07-20 07:15 | NUR ---
NURSE NOTES: Called Dr. Mcgregor and spoke with him regarding patients family decision to terminally extubate. No new orders at this time, MD will see patient this morning before extubating.
--- NOTE | 2019-07-20 07:16 | NUR ---
HAND-OFF: Report given to Essence PIERSON
--- NOTE | 2019-07-20 07:20 | NUR ---
NURSE NOTES: Received report from KENNA Mcmillan. Observed patient in bed, comatose, no response to verbal/painful stimuli. Patient is orally intubated with vent settings AC 20, TV 540, FiO2 100%, and PEEP 5. Patient is saturating 92%. cardiac monitor technician shows sinus tachycardia with HR of 127. Rectal tube and whiting catheter in place, draining to gravity. Multiple peripheral IV noted, D5W infusing at 50ml/hr, levophed at mcg/hr, protonix at 8mg/hr, and octreotide 50mcg/hr. Bed is locked, alarmed, and in lowest position, padded side rails up x2. Will continue plan of care and will continue to monitor patient.
--- NOTE | 2019-07-20 08:14 | Nephrology Progress Note ---
Assessment/Plan Assessment/Plan: A/P 1) CECELIA - due to ischemic nephropathy from hypotension - family has decided on comfort care/terminal wean 2) Hyperkalemia- - resolved 3) Encephalopathy- hepatic/alcohol - lactulose - ammonia level monitored 4) Hypernatremia- comfort care/terminal wean No further lab draws, comforte care only and terminal wean Subjective Date patient seen: Jul 20, 2019 Time patient seen: 08:11 ROS Limited/Unobtainable: Yes Allergies: Coded Allergies: No Known Allergies (Unverified , 06/19/19) Subjective Patient remains intubated. Family has decided on comfort care/terminal wean today Objective Last 24 Hour Vital Signs Date Time Temp Pulse Resp B/P (MAP) Pulse Ox O2 Delivery O2 Flow Rate FiO2 07/20/19 07:00 124 20 82/50 (61) 91 07/20/19 07:00 82/50 07/20/19 06:30 122 20 80/53 (62) 91 07/20/19 06:00 118 19 84/53 (63) 92 07/20/19 06:00 80/53 07/20/19 06:00 83/50 07/20/19 05:30 110 20 85/51 (62) 93 07/20/19 05:00 110 20 83/50 (61) 94 07/20/19 05:00 83/50 07/20/19 04:30 105 20 80/49 (59) 98 07/20/19 04:00 Mechanical Ventilator 07/20/19 04:00 98.1 100 20 83/53 (63) 98 07/20/19 04:00 80/49 07/20/19 04:00 100 07/20/19 04:00 96 07/20/19 03:30 96 20 78/51 (60) 99 07/20/19 03:00 78/51 07/20/19 03:00 93 20 80/51 (61) 99 07/20/19 02:30 90 20 78/52 (61) 99 07/20/19 02:00 91 20 82/53 (63) 100 07/20/19 02:00 78/52 07/20/19 01:30 92 20 84/53 (63) 99 07/20/19 01:00 92 20 81/54 (63) 100 07/20/19 01:00 84/53 07/20/19 00:30 92 21 83/52 (62) 99 07/20/19 00:00 Mechanical Ventilator 07/20/19 00:00 97.8 93 22 93/54 (67) 100 07/20/19 00:00 98 07/20/19 00:00 100 07/20/19 00:00 83/52 07/19/19 23:30 94 20 76/51 (59) 99 07/19/19 23:07 94 20 100 07/19/19 23:00 76/51 07/19/19 23:00 95 20 83/54 (64) 99 07/19/19 22:30 96 21 76/51 (59) 99 07/19/19 22:00 95 20 82/52 (62) 99 07/19/19 22:00 76/51 07/19/19 21:30 96 20 80/52 (61) 99 07/19/19 21:00 97 20 83/51 (62) 99 07/19/19 21:00 80/52 07/19/19 20:30 99 20 79/54 (62) 99 07/19/19 20:00 97.4 99 20 84/53 (63) 98 07/19/19 20:00 100 07/19/19 20:00 99 07/19/19 20:00 Mechanical Ventilator 07/19/19 20:00 79/54 07/19/19 19:30 99 20 88/54 (65) 98 07/19/19 19:29 99 22 100 07/19/19 19:00 88/56 07/19/19 19:00 100 20 88/54 (65) 98 07/19/19 18:00 99 20 85/54 (64) 99 07/19/19 18:00 83/53 07/19/19 17:30 99 20 90/51 (64) 99 07/19/19 17:00 85/53 07/19/19 17:00 101 20 85/53 (64) 99 07/19/19 16:34 98 20 100 07/19/19 16:30 100 18 87/72 (77) 86 07/19/19 16:00 Mechanical Ventilator 07/19/19 16:00 97.8 99 20 80/49 (59) 83 07/19/19 16:00 80/49 07/19/19 16:00 99 07/19/19 16:00 100 07/19/19 15:30 98 20 75/46 (56) 83 07/19/19 15:00 77/48 07/19/19 15:00 99 20 77/48 (58) 83 07/19/19 14:30 100 20 76/45 (55) 98 07/19/19 14:00 102 20 80/45 (57) 98 07/19/19 14:00 80/45 07/19/19 13:30 102 20 76/45 (55) 98 07/19/19 13:00 104 20 82/44 (57) 98 07/19/19 13:00 82/44 07/19/19 12:47 101 20 100 07/19/19 12:30 114 20 95/77 (83) 99 07/19/19 12:00 Mechanical Ventilator 07/19/19 12:00 108 07/19/19 12:00 86/49 07/19/19 12:00 98.5 102 20 86/49 (61) 100 07/19/19 12:00 100 07/19/19 11:30 101 20 86/49 (61) 99 07/19/19 11:00 101 20 81/47 (58) 99 07/19/19 11:00 85/49 07/19/19 10:30 99 20 84/48 (60) 90 07/19/19 10:00 97 20 81/48 (59) 97 07/19/19 10:00 86/48 07/19/19 09:30 95 20 82/48 (59) 89 07/19/19 09:00 81/48 07/19/19 09:00 94 20 81/48 (59) 86 07/19/19 08:30 92 20 81/47 (58) 87 Intake and Output 07/19/19 07/20/19 19:00 07:00 Intake Total 2688.333 ml 3565.0 ml Output Total 370 ml 1770 ml Balance 2318.333 ml 1795.0 ml Intake Oral 0 ml IV Total 1688.333 ml 1565.0 ml Other 1000 ml 2000 ml Output Urine Total 370 ml 270 ml Stool Total 1500 ml Laboratory Tests 07/19/19 10:50: White Blood Count 5.8, Red Blood Count 3.28L, Hemoglobin 9.9L, Hematocrit 29.0L , Mean Corpuscular Volume 88, Mean Corpuscular Hemoglobin 30.3, Mean Corpuscular Hemoglobin Concent 34.3, Red Cell Distribution Width 13.6, Platelet Count 68L, Mean Platelet Volume 6.0L, Neutrophils (%) (Auto) , Lymphocytes (%) ( Auto) , Monocytes (%) (Auto) , Eosinophils (%) (Auto) , Basophils (%) (Auto) , Differential Total Cells Counted 100, Neutrophils % (Manual) 74, Lymphocytes % ( Manual) 9L, Monocytes % (Manual) 8, Eosinophils % (Manual) 0, Basophils % ( Manual) 0, Band Neutrophils 9H, Platelet Estimate DecreasedL, Platelet Morphology Normal, Hypochromasia 1+ 07/20/19 03:30: White Blood Count 4.9, Red Blood Count 3.48L, Hemoglobin 10.6L, Hematocrit 30.9L , Mean Corpuscular Volume 89, Mean Corpuscular Hemoglobin 30.5, Mean Corpuscular Hemoglobin Concent 34.4, Red Cell Distribution Width 13.6, Platelet Count 63L, Mean Platelet Volume 6.3L, Neutrophils (%) (Auto) , Lymphocytes (%) ( Auto) , Monocytes (%) (Auto) , Eosinophils (%) (Auto) , Basophils (%) (Auto) , Differential Total Cells Counted 100, Neutrophils % (Manual) 70, Lymphocytes % ( Manual) 17L, Monocytes % (Manual) 8, Eosinophils % (Manual) 0, Basophils % ( Manual) 0, Band Neutrophils 5, Platelet Estimate DecreasedL, Platelet Morphology Normal, Hypochromasia 1+, Prothrombin Time 19.4H, Prothromb Time International Ratio 1.9H, Sodium Level 152H, Potassium Level 3.2L, Chloride Level 117H, Carbon Dioxide Level 18L, Anion Gap 17H, Blood Urea Nitrogen 85H, Creatinine 2.9H, Estimat Glomerular Filtration Rate 15.6, Glucose Level 186H, Calcium Level 8.1L Height (Feet): 5 Height (Inches): 5.00 Weight (Pounds): 153 Juwan Angelo MD Jul 20, 2019 08:14
--- NOTE | 2019-07-20 08:15 | NUR ---
NURSE NOTES: Dr Angelo present in the unit, informed and amde aware regarding patient's family's decision for terminal extubation; no new orders received at this time. Still awaiting for Dr Mcgregor. Will continue to monitor patient.
--- NOTE | 2019-07-20 09:41 | General Progress Note ---
Assessment/Plan Problem List: (1) Cirrhosis ICD Codes: K74.60 - Unspecified cirrhosis of liver SNOMED: 49778620 (2) Esophageal varices ICD Codes: I85.00 - Esophageal varices without bleeding SNOMED: 51254252 (3) Ascites ICD Codes: R18.8 - Other ascites SNOMED: 078898644 (4) Anemia ICD Codes: D64.9 - Anemia, unspecified SNOMED: 952002713 (5) GI bleed ICD Codes: K92.2 - Gastrointestinal hemorrhage, unspecified SNOMED: 15125725 (6) Hepatic encephalopathy ICD Codes: K72.90 - Hepatic failure, unspecified without coma SNOMED: 19909201 (7) Altered level of consciousness ICD Codes: R40.4 - Transient alteration of awareness SNOMED: 0771974 Assessment/Plan: s/p EGD and banding last week s/p 2 units PRBC intubated DNR now lactulose enema npo poor prognosis pending possible terminal extubation for today Subjective ROS Limited/Unobtainable: No Allergies: Coded Allergies: No Known Allergies (Unverified , 06/19/19) Objective Last 24 Hour Vital Signs Date Time Temp Pulse Resp B/P (MAP) Pulse Ox O2 Delivery O2 Flow Rate FiO2 07/20/19 08:45 127 20 100 07/20/19 08:09 128 20 100 07/20/19 07:00 124 20 82/50 (61) 91 07/20/19 07:00 82/50 07/20/19 06:30 122 20 80/53 (62) 91 07/20/19 06:00 118 19 84/53 (63) 92 07/20/19 06:00 80/53 07/20/19 06:00 83/50 07/20/19 05:30 110 20 85/51 (62) 93 07/20/19 05:00 110 20 83/50 (61) 94 07/20/19 05:00 83/50 07/20/19 04:30 105 20 80/49 (59) 98 07/20/19 04:00 Mechanical Ventilator 07/20/19 04:00 98.1 100 20 83/53 (63) 98 07/20/19 04:00 80/49 07/20/19 04:00 100 07/20/19 04:00 96 07/20/19 03:30 96 20 78/51 (60) 99 07/20/19 03:00 78/51 07/20/19 03:00 93 20 80/51 (61) 99 07/20/19 02:30 90 20 78/52 (61) 99 07/20/19 02:00 91 20 82/53 (63) 100 07/20/19 02:00 78/52 07/20/19 01:30 92 20 84/53 (63) 99 07/20/19 01:00 92 20 81/54 (63) 100 07/20/19 01:00 84/53 07/20/19 00:30 92 21 83/52 (62) 99 07/20/19 00:00 Mechanical Ventilator 07/20/19 00:00 97.8 93 22 93/54 (67) 100 07/20/19 00:00 98 07/20/19 00:00 100 07/20/19 00:00 83/52 07/19/19 23:30 94 20 76/51 (59) 99 07/19/19 23:07 94 20 100 07/19/19 23:00 76/51 07/19/19 23:00 95 20 83/54 (64) 99 07/19/19 22:30 96 21 76/51 (59) 99 07/19/19 22:00 95 20 82/52 (62) 99 07/19/19 22:00 76/51 07/19/19 21:30 96 20 80/52 (61) 99 07/19/19 21:00 97 20 83/51 (62) 99 07/19/19 21:00 80/52 07/19/19 20:30 99 20 79/54 (62) 99 07/19/19 20:00 97.4 99 20 84/53 (63) 98 07/19/19 20:00 100 07/19/19 20:00 99 07/19/19 20:00 Mechanical Ventilator 07/19/19 20:00 79/54 07/19/19 19:30 99 20 88/54 (65) 98 07/19/19 19:29 99 22 100 07/19/19 19:00 88/56 07/19/19 19:00 100 20 88/54 (65) 98 07/19/19 18:00 99 20 85/54 (64) 99 07/19/19 18:00 83/53 07/19/19 17:30 99 20 90/51 (64) 99 07/19/19 17:00 85/53 07/19/19 17:00 101 20 85/53 (64) 99 07/19/19 16:34 98 20 100 07/19/19 16:30 100 18 87/72 (77) 86 07/19/19 16:00 Mechanical Ventilator 07/19/19 16:00 97.8 99 20 80/49 (59) 83 07/19/19 16:00 80/49 07/19/19 16:00 99 07/19/19 16:00 100 07/19/19 15:30 98 20 75/46 (56) 83 07/19/19 15:00 77/48 07/19/19 15:00 99 20 77/48 (58) 83 07/19/19 14:30 100 20 76/45 (55) 98 07/19/19 14:00 102 20 80/45 (57) 98 07/19/19 14:00 80/45 07/19/19 13:30 102 20 76/45 (55) 98 07/19/19 13:00 104 20 82/44 (57) 98 07/19/19 13:00 82/44 07/19/19 12:47 101 20 100 07/19/19 12:30 114 20 95/77 (83) 99 07/19/19 12:00 Mechanical Ventilator 07/19/19 12:00 108 07/19/19 12:00 86/49 07/19/19 12:00 98.5 102 20 86/49 (61) 100 07/19/19 12:00 100 07/19/19 11:30 101 20 86/49 (61) 99 07/19/19 11:00 101 20 81/47 (58) 99 07/19/19 11:00 85/49 07/19/19 10:30 99 20 84/48 (60) 90 07/19/19 10:00 97 20 81/48 (59) 97 07/19/19 10:00 86/48 Intake and Output 07/19/19 07/20/19 19:00 07:00 Intake Total 2688.333 ml 3565.0 ml Output Total 370 ml 1770 ml Balance 2318.333 ml 1795.0 ml Intake Oral 0 ml IV Total 1688.333 ml 1565.0 ml Other 1000 ml 2000 ml Output Urine Total 370 ml 270 ml Stool Total 1500 ml Laboratory Tests 07/19/19 10:50: White Blood Count 5.8, Red Blood Count 3.28L, Hemoglobin 9.9L, Hematocrit 29.0L , Mean Corpuscular Volume 88, Mean Corpuscular Hemoglobin 30.3, Mean Corpuscular Hemoglobin Concent 34.3, Red Cell Distribution Width 13.6, Platelet Count 68L, Mean Platelet Volume 6.0L, Neutrophils (%) (Auto) , Lymphocytes (%) ( Auto) , Monocytes (%) (Auto) , Eosinophils (%) (Auto) , Basophils (%) (Auto) , Differential Total Cells Counted 100, Neutrophils % (Manual) 74, Lymphocytes % ( Manual) 9L, Monocytes % (Manual) 8, Eosinophils % (Manual) 0, Basophils % ( Manual) 0, Band Neutrophils 9H, Platelet Estimate DecreasedL, Platelet Morphology Normal, Hypochromasia 1+ 07/20/19 03:30: White Blood Count 4.9, Red Blood Count 3.48L, Hemoglobin 10.6L, Hematocrit 30.9L , Mean Corpuscular Volume 89, Mean Corpuscular Hemoglobin 30.5, Mean Corpuscular Hemoglobin Concent 34.4, Red Cell Distribution Width 13.6, Platelet Count 63L, Mean Platelet Volume 6.3L, Neutrophils (%) (Auto) , Lymphocytes (%) ( Auto) , Monocytes (%) (Auto) , Eosinophils (%) (Auto) , Basophils (%) (Auto) , Differential Total Cells Counted 100, Neutrophils % (Manual) 70, Lymphocytes % ( Manual) 17L, Monocytes % (Manual) 8, Eosinophils % (Manual) 0, Basophils % ( Manual) 0, Band Neutrophils 5, Platelet Estimate DecreasedL, Platelet Morphology Normal, Hypochromasia 1+, Prothrombin Time 19.4H, Prothromb Time International Ratio 1.9H, Sodium Level 152H, Potassium Level 3.2L, Chloride Level 117H, Carbon Dioxide Level 18L, Anion Gap 17H, Blood Urea Nitrogen 85H, Creatinine 2.9H, Estimat Glomerular Filtration Rate 15.6, Glucose Level 186H, Calcium Level 8.1L Height (Feet): 5 Height (Inches): 5.00 Weight (Pounds): 153 General Appearance: lethargic EENT: normal ENT inspection Neck: supple Cardiovascular: tachycardia Respiratory/Chest: decreased breath sounds Abdomen: normal bowel sounds, non tender, soft Extremities: non-tender Jj Hermosillo MD Jul 20, 2019 09:41
--- NOTE | 2019-07-20 09:52 | NUR ---
NURSE NOTES: Dr Mcgregor present in the unit, spoke with Hayley over the phone to verify terminal extubation. RT notified.
--- NOTE | 2019-07-20 09:54 | NUR ---
CASE MANAGEMENT: REVIEW SI: HEPATIC ENCEPHALOPATHY . GI BLEED . ESOPHAGEAL VARICES EGD w/BANDING 07/15 T 97.8 HR 90 RR 22 BP 78/52 SAT 99% MECH VENT FIO2 100 NA 152 BUN 85 CR 2.9 IS: PROTONIX GTT OCTREOTIDE GTT LEVOPHED GTT D5W 50ML/HR CEFTRIAXONE IV Q24HR KEPPRA IV Q12HR LACTULOSE RECTAL Q8HR NOVOLOG SUBQ AC+HS WEANING DETERMINATION ICU STATUS DCP: PATIENT IS FROM [facility] Addendum: 07/20/19 at 1019 by PHILL BETTENCOURT CM PATIENT TERMINALLY EXTUBATED
--- NOTE | 2019-07-20 09:56 | Pulmonology Progress Note ---
Assessment/Plan Assessment/Plan ASSESSMENT AND PLAN: 1. GI bleed due to esophageal varices, status post banding. 2. Acute encephalopathy due to elevated ammonia level. 3. Anemia secondary to GI bleed. 4. Diabetes mellitus. I will continue Accu-Cheks 5. DVT prophylaxis with SCD. 6. Shock; on Levophed 7. Acute respiratory failure; on vent 8. DNR now; discussed with family Will terminally extubate. Long discussion with nieces (Lamar and Jolene) Jonny Mcgregor MD Subjective Interval Events: Discussed with family; they want to terminally extubate pt Constitutional: Reports: no symptoms HEENT: Repors: no symptoms Respiratory: Reports: no symptoms Cardiovascular: Reports: no symptoms Gastrointestinal/Abdominal: Reports: no symptoms Allergies: Coded Allergies: No Known Allergies (Unverified , 06/19/19) Objective Last 24 Hour Vital Signs Date Time Temp Pulse Resp B/P (MAP) Pulse Ox O2 Delivery O2 Flow Rate FiO2 07/20/19 08:45 127 20 100 07/20/19 08:09 128 20 100 07/20/19 08:00 Mechanical Ventilator 07/20/19 07:00 124 20 82/50 (61) 91 07/20/19 07:00 82/50 07/20/19 06:30 122 20 80/53 (62) 91 07/20/19 06:00 118 19 84/53 (63) 92 07/20/19 06:00 80/53 07/20/19 06:00 83/50 07/20/19 05:30 110 20 85/51 (62) 93 07/20/19 05:00 110 20 83/50 (61) 94 07/20/19 05:00 83/50 07/20/19 04:30 105 20 80/49 (59) 98 07/20/19 04:00 Mechanical Ventilator 07/20/19 04:00 98.1 100 20 83/53 (63) 98 07/20/19 04:00 80/49 07/20/19 04:00 100 07/20/19 04:00 96 4/13/20 03:30 96 20 78/51 (60) 99 07/20/19 03:00 78/51 07/20/19 03:00 93 20 80/51 (61) 99 07/20/19 02:30 90 20 78/52 (61) 99 07/20/19 02:00 91 20 82/53 (63) 100 07/20/19 02:00 78/52 07/20/19 01:30 92 20 84/53 (63) 99 07/20/19 01:00 92 20 81/54 (63) 100 07/20/19 01:00 84/53 07/20/19 00:30 92 21 83/52 (62) 99 07/20/19 00:00 Mechanical Ventilator 07/20/19 00:00 97.8 93 22 93/54 (67) 100 07/20/19 00:00 98 07/20/19 00:00 100 07/20/19 00:00 83/52 07/19/19 23:30 94 20 76/51 (59) 99 07/19/19 23:07 94 20 100 07/19/19 23:00 76/51 07/19/19 23:00 95 20 83/54 (64) 99 07/19/19 22:30 96 21 76/51 (59) 99 07/19/19 22:00 95 20 82/52 (62) 99 07/19/19 22:00 76/51 07/19/19 21:30 96 20 80/52 (61) 99 07/19/19 21:00 97 20 83/51 (62) 99 07/19/19 21:00 80/52 07/19/19 20:30 99 20 79/54 (62) 99 07/19/19 20:00 97.4 99 20 84/53 (63) 98 07/19/19 20:00 100 07/19/19 20:00 99 07/19/19 20:00 Mechanical Ventilator 07/19/19 20:00 79/54 07/19/19 19:30 99 20 88/54 (65) 98 07/19/19 19:29 99 22 100 07/19/19 19:00 88/56 07/19/19 19:00 100 20 88/54 (65) 98 07/19/19 18:00 99 20 85/54 (64) 99 07/19/19 18:00 83/53 07/19/19 17:30 99 20 90/51 (64) 99 07/19/19 17:00 85/53 07/19/19 17:00 101 20 85/53 (64) 99 07/19/19 16:34 98 20 100 07/19/19 16:30 100 18 87/72 (77) 86 07/19/19 16:00 Mechanical Ventilator 07/19/19 16:00 97.8 99 20 80/49 (59) 83 07/19/19 16:00 80/49 07/19/19 16:00 99 07/19/19 16:00 100 07/19/19 15:30 98 20 75/46 (56) 83 07/19/19 15:00 77/48 07/19/19 15:00 99 20 77/48 (58) 83 07/19/19 14:30 100 20 76/45 (55) 98 07/19/19 14:00 102 20 80/45 (57) 98 07/19/19 14:00 80/45 07/19/19 13:30 102 20 76/45 (55) 98 07/19/19 13:00 104 20 82/44 (57) 98 07/19/19 13:00 82/44 07/19/19 12:47 101 20 100 07/19/19 12:30 114 20 95/77 (83) 99 07/19/19 12:00 Mechanical Ventilator 07/19/19 12:00 108 07/19/19 12:00 86/49 07/19/19 12:00 98.5 102 20 86/49 (61) 100 07/19/19 12:00 100 07/19/19 11:30 101 20 86/49 (61) 99 07/19/19 11:00 101 20 81/47 (58) 99 07/19/19 11:00 85/49 07/19/19 10:30 99 20 84/48 (60) 90 07/19/19 10:00 97 20 81/48 (59) 97 07/19/19 10:00 86/48 Intake and Output 07/19/19 07/20/19 19:00 07:00 Intake Total 2688.333 ml 3565.0 ml Output Total 370 ml 1770 ml Balance 2318.333 ml 1795.0 ml Intake Oral 0 ml IV Total 1688.333 ml 1565.0 ml Other 1000 ml 2000 ml Output Urine Total 370 ml 270 ml Stool Total 1500 ml General Appearance: no acute distress HEENT: normocephalic Respiratory/Chest: chest wall non-tender, lungs clear Cardiovascular: normal peripheral pulses, normal rate Abdomen: normal bowel sounds Laboratory Tests 07/19/19 10:50: White Blood Count 5.8, Red Blood Count 3.28L, Hemoglobin 9.9L, Hematocrit 29.0L , Mean Corpuscular Volume 88, Mean Corpuscular Hemoglobin 30.3, Mean Corpuscular Hemoglobin Concent 34.3, Red Cell Distribution Width 13.6, Platelet Count 68L, Mean Platelet Volume 6.0L, Neutrophils (%) (Auto) , Lymphocytes (%) ( Auto) , Monocytes (%) (Auto) , Eosinophils (%) (Auto) , Basophils (%) (Auto) , Differential Total Cells Counted 100, Neutrophils % (Manual) 74, Lymphocytes % ( Manual) 9L, Monocytes % (Manual) 8, Eosinophils % (Manual) 0, Basophils % ( Manual) 0, Band Neutrophils 9H, Platelet Estimate DecreasedL, Platelet Morphology Normal, Hypochromasia 1+ 07/20/19 03:30: White Blood Count 4.9, Red Blood Count 3.48L, Hemoglobin 10.6L, Hematocrit 30.9L , Mean Corpuscular Volume 89, Mean Corpuscular Hemoglobin 30.5, Mean Corpuscular Hemoglobin Concent 34.4, Red Cell Distribution Width 13.6, Platelet Count 63L, Mean Platelet Volume 6.3L, Neutrophils (%) (Auto) , Lymphocytes (%) ( Auto) , Monocytes (%) (Auto) , Eosinophils (%) (Auto) , Basophils (%) (Auto) , Differential Total Cells Counted 100, Neutrophils % (Manual) 70, Lymphocytes % ( Manual) 17L, Monocytes % (Manual) 8, Eosinophils % (Manual) 0, Basophils % ( Manual) 0, Band Neutrophils 5, Platelet Estimate DecreasedL, Platelet Morphology Normal, Hypochromasia 1+, Prothrombin Time 19.4H, Prothromb Time International Ratio 1.9H, Sodium Level 152H, Potassium Level 3.2L, Chloride Level 117H, Carbon Dioxide Level 18L, Anion Gap 17H, Blood Urea Nitrogen 85H, Creatinine 2.9H, Estimat Glomerular Filtration Rate 15.6, Glucose Level 186H, Calcium Level 8.1L Current Medications Medications (Trade) Dose Ordered Sig/Cecelia Route PRN Reason Start Time Stop Time Status Last Admin Dose Admin Ceftriaxone Sodium 1 gm/ Dextrose 55 ml @ 110 mls/hr Q24H IVPB 07/16/19 13:00 07/23/19 12:59 07/19/19 12:22 Dextrose 1,000 ml @ 50 mls/hr Q20H IV 07/19/19 11:30 08/18/19 11:29 07/20/19 07:46 Dextrose (Dextrose 50%) 25 ml Q30M PRN IV Hypoglycemia 07/16/19 11:00 10/14/19 10:59 Dextrose (Dextrose 50%) 50 ml Q30M PRN IV Hypoglycemia 07/16/19 11:00 10/14/19 10:59 Insulin Aspart (NovoLOG) BEFORE MEALS AND HS SUBQ 07/17/19 16:30 10/15/19 16:29 07/20/19 06:25 Lactulose 200 gm/ Sodium Chloride 1,000 ml @ 0 mls/hr Q8H RECTAL 07/17/19 11:00 07/24/19 10:59 07/20/19 02:37 Levetiracetam 100 ml @ 400 mls/hr Q12H IVPB 07/17/19 16:00 10/15/19 15:59 07/20/19 04:00 Norepinephrine Bitartrate 8 mg/ Dextrose 500 ml @ 0 mls/hr Q24H IV 07/18/19 06:00 08/17/19 05:59 07/19/19 05:56 Octreotide Acetate 500 mcg/ Sodium Chloride 500 ml @ 50 mls/hr Q10H IV 07/16/19 07:30 08/15/19 07:29 07/20/19 02:37 Pantoprazole 80 mg/Sodium Chloride 250 ml @ 25 mls/hr Q10H IV 07/16/19 12:00 08/15/19 11:59 07/20/19 06:24 Jonny Mcgregor MD Jul 20, 2019 09:56
--- NOTE | 2019-07-20 10:13 | NUR ---
RESPIRATORY NOTE: Terminal extubation order per DR Mcgregor. Placed pt on non rebreather
--- NOTE | 2019-07-20 10:13 | NUR ---
NURSE NOTES: Patient was terminally extubated by RT Gael. Dr Mcgregor present in the unit, aware. Placed patient on non rebreather mask. Will continue comfort care.
[2019-07-20] MEDS ORDERED: Morphine Sulfate 2mg/ml Inj(IV/IM USE ONLY) IVP PRN (10:15)
--- NOTE | 2019-07-20 10:19 | NUR ---
NURSE NOTES: Dr Mcgregor ordered to stop fluids/drips; ordered morphine for comfort care. Noted all orders, will carry out. Will continue comfort care for patient.
--- NOTE | 2019-07-20 11:07 | NUR ---
*-* INSURANCE *-* UPDATED AVAILABLE CLINICALS HAVE BEEN FAXED TO: [employer] F: [phone]
--- NOTE | 2019-07-20 11:17 | NUR ---
PRONOUNCEMENT: No Code/DNR. Charge nurse oRxie Batres pronounced patient at 1053AM. Absence of spontaneous respirations, no cardiac or breath sounds on auscultation. Pupils fixed and dilated. No carotid pulse or chest movement. Dr Mcgregor notified at 1057. [employer] was called and notified by charge nurse at 1104. [employer] notified at 1111. Family [facility] was notified at 1111, Jolene Yepez notified at 1113.
--- NOTE | 2019-07-20 11:55 | NUR ---
NURSE NOTES: Post mortem care done. Security notified for pick-up/transport to [facility].
--- NOTE | 2019-07-20 16:16 | NUR ---
*-* INSURANCE *-* UPDATED AVAILABLE CLINICALS HAVE BEEN FAXED TO: [employer] F: [phone] Addendum: 07/20/19 at 1617 by JOSE RAMON VELASCO CM PT NO DISCHARGE SUMMARY IN THE SYSTEM
--- NOTE | 2019-07-21 07:44 | Progress Note ---
DATE: 07/20/2019 CARDIOLOGY PROGRESS NOTE This is a late entry. Time of dictation does not correlate with time of evaluation. SUBJECTIVE: The patient's condition has remained quite poor. She is on pressors with significant hypotension persisting and full ventilator support required. Dr. Mcgregor, has spoken with family members and we apprised them of the critical condition and grave prognosis. Family members have decided on withdrawal of life support and comfort care. PHYSICAL EXAMINATION: VITAL SIGNS: Reviewed. GENERAL: Reveals unresponsive, edematous. LUNGS: Bilateral breath sounds. CARDIAC: Rapid rate. Regular rhythm. IMPRESSION: 1. Multiorgan system failure. 2. Critical and grave. PLAN: Appropriate decision for comfort care at that time. Cardiology followup as needed. Hraoon Pimentel M.D. DR: CHAVA JOB#: [id number] CC:
--- NOTE | 2019-07-21 13:02 | Discharge Summary ---
Discharge Summary Discharge Summary _ SUMMARY DATE OF ADMISSION: 07/15/2019 DATE OF EXPIRATION: 07/20/2019 REASON FOR ADMISSION: 78 years old female with past medical history of alcohol dependency, cirrhosis, esophageal varices, status post recent banding procedure, gastritis, anemia, history of CVA, diabetes mellitus, cardiomyopathy, GERD, resident of [facility] facility, presented for evaluation due to altered mental status and hematemesis. Patient was also noted to have a maroon-colored stools. Upon evaluation patient was afebrile ,hemoglobin 8.3 ,hematocrit 26.3, platelet count 167. No leukocytosis. Urinalysis revealed no evidence of urinary tract infection. Potassium 5.9. BUN 47, creatinine 1.4. Glucose 145. AST 26 ALT 16. Lipase 40. Ammonia level 239. Troponin negative. CT of the head revealed no evidence of acute intracranial bleeding or mass- effect. Patient subsequently admitted for further management CONSULTANTS: patient relations director Dr. Pimentel GI specialist Dr. [place] tongue and groove machine feeder Dr.De Rodríguez HOSPITAL COURSE: Patient admitted and undergone the same day upper endoscopy with banding x3. Noted active upper GI bleeding from esophageal varices and ruptured nipple. Patient was kept n.p.o. Patient started on Protonix and octreotide drips. Patient started on lactulose enema. Hemoglobin and hematocrit were closely monitored with goal to keep hemoglobin above 7. Patient received 4 units of packed red blood cells while in the hospital. GI specialist was unable to place NG tube given the active bleeding from esophageal varices. DVT prophylaxis with SCD provided. On patient was found to be tachypneic and in respiratory distress. Patient required urgent oral intubation by emergency room physician. Chest x-ray confirmed appropriate placement of endotracheal tube. Patient was transferred to ICU. Patient required pressors for hemodynamic support. Pressors titrated to keep mean arterial blood pressure above 65. Protonix and octreotide drip continued. Ventilator support and pulmonary toilet provided. Hemodynamic status was closely monitored. Empiric antibiotic provided. Blood cultures were negative. Lactulose continued. Ammonia level trended down from the highest level 1348 to 242. Renal parameters and electrolytes were closely monitored. Acute kidney injury was due to volume depletion and hypotension. I O Psychologist recommended to avoid nephrotoxins and continue with conservative management. Hyperkalemia was treated. Given multiorgan failure , grave prognosis and critical condition, CODE STATUS was changed to DNR/DNI on 07/07\. Patient's condition was continued to deteriorate. Patient subsequently pronounced at 11:04 on 07/20/19. Cause of : cardiopulmonary arrest secondary to multiorgan failure . FINAL DIAGNOSES: Multiorgan system failure Sepsis with shock Acute hypoxemic respiratory failure, requiring intubation Acute hepatic encephalopathy Active upper GI bleeding from esophageal varices Status post upper endoscopy with banding x3 Acute kidney injury due to volume depletion and hypotension Alcoholic cardiomyopathy Alcoholic liver disease Anemia secondary to GI bleeding Diabetes mellitus Dehydration Hyperkalemia I have been assigned to dictate discharge summary for this account. I was not involved in the patient's management. Tisha Miranda NP Jul 21, 2019 13:02
== END 2019-07-20 10:52 | disposition expired | DRG 441 ==
LOC: EDBD 17:18 → EDUNIT# 17:18 → EMR 17:55 → EDBEDREQ 18:17 → ICU 19:10 → EDBEDREQ 19:30 → EDBEDREQSVC 19:30 → EDBEDREQ 21:39
PROC: 30233N1 Transfusion of Nonautologous Red Blood Cells into Peripheral Vein, Percutaneous Approach (ICD-10-PCS; principal; 2019-07-15)
PROC: 06L38CZ Occlusion of Esophageal Vein with Extraluminal Device, Via Natural or Artificial Opening Endoscopic (ICD-10-PCS; 2019-07-16 12:02)
PROC: 0BH17EZ Insertion of Endotracheal Airway into Trachea, Via Natural or Artificial Opening (ICD-10-PCS; 2019-07-17)
PROC: 5A1945Z Respiratory Ventilation, 24-96 Consecutive Hours (ICD-10-PCS; 2019-07-17)
DX: K76.6 Portal hypertension (principal); A41.9 Sepsis, unspecified organism; R65.21 Severe sepsis with septic shock; J96.01 Acute respiratory failure with hypoxia; I85.11 Secondary esophageal varices with bleeding; N18.6 End stage renal disease; I47.1 Supraventricular tachycardia; I42.6 Alcoholic cardiomyopathy; R18.8 Other ascites; G93.49 Other encephalopathy; K72.90 Hepatic failure, unspecified without coma; D50.0 Iron deficiency anemia secondary to blood loss (chronic); K21.9 Gastro-esophageal reflux disease without esophagitis; F10.20 Alcohol dependence, uncomplicated; Z86.73 Personal history of transient ischemic attack (TIA), and cerebral infarction without residual deficits; K70.9 Alcoholic liver disease, unspecified; Z66 Do not resuscitate; E86.0 Dehydration; E87.5 Hyperkalemia; I46.9 Cardiac arrest, cause unspecified; E87.8 Other disorders of electrolyte and fluid balance, not elsewhere classified; E11.22 Type 2 diabetes mellitus with diabetic chronic kidney disease; N05.8 Unspecified nephritic syndrome with other morphologic changes; Z51.5 Encounter for palliative care; K31.89 Other diseases of stomach and duodenum
CPT/HCPCS: 36415; 36600; 70450; 71045; 80048; 80053; 80061; 81003; 82140; 82248; 82803; 83690; 83880; 84132; 84484; 85007; 85025; 85610; 85730; 86850; 86900; 86901; 86920; 87040; 87081; 93005; 94002; 94003; 94150; 94664; 96365; 96366; 96375; 99285; J1815; J7030